=== PATIENT | male | born 1940 | race Caucasian/White ===

== ENCOUNTER 2019-09-20 00:23 | Day surgery (SDC) | payer MEDICARE, OTHER, SELFPAY ==
[2019-09-10 08:46] VITALS: BP 142/66; PULSE 84; RESP 18; TEMP 36.6; O2SAT 96; BMI 33.3
[2019-09-20] VITALS (15 sets, daily range): BP systolic 113–146; BP diastolic 48–77; PULSE 64–91; RESP 12–18; TEMP 36.4–37.2; O2SAT 93–100
--- NOTE | ~2019-09-20 | XR_ITS ---
EXAMINATION: XR knee LT 2V DATE: 09/20/2019 11:35 INDICATION: Postoperative evaluation following left knee arthroplasty. TECHNIQUE: Anteroposterior and lateral views of the left knee were obtained. COMPARISON: None. FINDINGS: Left total knee arthroplasty with patellar resurfacing appears well seated and in near anatomic align ment. No fractures identified. Expected postoperative subcutaneous and intra-articular gas. IMPRESSION: 1. Left total knee arthroplasty, negative for postoperative purposes. Reviewed, dictated and finalized at location A. HT CUTTER
--- NOTE | ~2019-09-20 | XR_ITS ---
EXAMINATION: XR surgery orthopedic DATE: 09/20/2019 09:24 INDICATION: Intraoperative evaluation during left total knee arthroplasty TECHNIQUE: Single frontal intraoperative image of the left knee was obtained. COMPARISON: 02/15/2019 FINDINGS: Interval osteotomies of the articular surfaces of the tibial plateau and femoral condyles. Lucent int ramedullary tract in the distal femur. Metallic device projecting over the patella suggesting patella r resurfacing. Expected gas at the operative bed. The knee is currently in varus position with the pa tella subluxed laterally. No fracture identified. IMPRESSION: 1. Fluoroscopy utilized during left total knee arthroplasty. Reviewed, dictated and finalized at location A. CCO SIZER
--- NOTE | 2019-09-20 06:54 | WPDANESEPPF ---
Anes - Initial Pre Proc Eval Procedure: Operation Date: 09/20/19 07:30 Proposed Procedures p Left Total Knee Arthroplasty - Jose Mathews MD Date/Time: 09/20/19 06:54 Surgeon: Jose Mathews MD Pre Op Diagnosis: OA Left Knee Patient Data Age: 79 Gender: M Height: 1.8 m Weight: 108.4 kg Last Vital Signs Temp 36.6 C 09/10/19 08:46 Pulse 84 09/10/19 08:46 Resp 18 09/10/19 08:46 BP 142/66 H 09/10/19 08:46 Pulse Ox 96 09/10/19 08:46 Allergies Allergy/AdvReac Type Severity Reaction Status Date / Time Penicillins Allergy Unknown Swelling Verified 09/10/19 08:46 Home Medications Medication Instructions Recorded Confirmed Type finasteride 5 mg tablet 5 mg PO DAILY 08/17/19 09/10/19 History Patient hx anesthesia problems: none Family hx anesthesia problems: none PMFSH Past Medical History Medical History (Updated 09/20/19 @ 06:55 by Azeem Mendiola DO) ABBY (obstructive sleep apnea) Other urinary problems Parkinson disease recent diagnosis, early stages, no meds Skin problem Chronic psoriasis Surgical History Surgical History History of appendectomy Social History Social History Gender identity (if verbalized by the patient): Male Anes - Eval Final PreProcedure Day of Procedure 09/20/19 06:54 Patient weight: obese Heart: regular rate and rhythm Lungs: clear to auscultation and normal air movement Airway: Mallampati scale class II Neurological: alert and oriented Last oral intake: >/= 8 hours ASA classification: III Emergent: no Anesthetic plan: proceed Anesthesia type and monitoring: regional spinal and standard monitoring Informed Consent: The patient's anesthetic plan and its attendant risks and benefits were discussed with the patient/family/POA. Questions were solicited and answers provided to the satisfaction of the patient/family/POA.
[2019-09-20] MEDS: LACTATED RINGERS 1,000 ML 30 ML IV CONT ×2 (07:00→11:17)
--- NOTE | 2019-09-20 07:27 | WPDHPUPDATE1 ---
History and Physical Update Update Date/Time: 09/20/19 07:27 History and Physical has been reviewed, including an updated exam of the patient. There are NO changes in the patient's condition. Risks, benefits, and alternatives have been discussed and questions answered. Patient agrees to proceed with procedure.
--- NOTE | 2019-09-20 07:32 | WPDANESPNB ---
Anes - Peripheral Nerve Block Date/Time: 09/20/19 07:32 I have discussed with the patient/family/POA the placement of a peripheral nerve block for post-operative pain management, including associated risks, benefits, complications, and side effects. Alternative methods of post-operative analgesia were detailed. Questions were solicited and answers provided to the satisfaction of the patient/family/POA. Time-Out: A pre-procedural Time-Out was completed immediately before starting the procedure and confirmed: Patient Identification, Site, Procedure, Patient Position and the Availability of Requisite Equipment. Clinical Indications: Acute post-operative pain management requested by the operative surgeon. Nerve Block Insertion Note Anes-nerve block: adductor canal left Patient position: supine Skin prep: chlorhexidine Needle: 22 gauge, stimulating, insulated echogenic needle. Needle length: 80 mm Technique: ultrasound Injectate: bupivacaine 0.5% with epi 5 mcg/ml (30cc) Observations: tolerated well Complications: none Procedure start time:: 727 Procedure end time:: 730
[2019-09-20] MEDS: TRANEXAMIC ACID 1,000 MG in SODIUM CHLORIDE 0.9% IV 50 ML 120 MG IVPB (07:40)
[2019-09-20] MEDS: ceFAZolin 2 GM/D5W 50 ML 2 GM/50 ML BAG IVPB ×3 (08:05→23:30)
[2019-09-20] MEDS: GENTAMICIN BONE CEMENT REFOBACIN 1 EACH TOPICAL (08:30)
[2019-09-20] MEDS: TRANEXAMIC ACID 1,000 MG/10 ML AMPUL 1000 MG TOPICAL (08:30)
[2019-09-20] MEDS: ceFAZolin SODIUM 1 GM VIAL IV PUSH (10:19)
--- NOTE | 2019-09-20 11:21 | P.OP_ITS ---
Procedure Note - Detailed Date of procedure: 09/20/19 Pre-op diagnosis: OA Left Knee Post-op diagnosis: same Procedure performed: Cemented left total knee replacement Description of procedure: Patient was identified proper site identified. In the preop holding area, anesthesia team performed a left lower extremity block. He was then taken to the operating room and transferred to the OR table. After spinal anesthetic was administered he was positioned supine taking care to pad his torso and extremities. A nonsterile tourniquet was placed high on the left thigh. Left lower extremities prepped and draped in usual sterile fashion. Ex tremities exsanguinated and the tourniquet was inflated to 300 mm years of mercury remaining up initially for 60 minutes. Anterior midline incision was made. Sharp dissection was carried down through the subcutaneous tissue to the extensor mechanism. A mid vastus approach was used. Infra and suprapatellar fat pads were excised. The patella was resected leaving 16 mm thickness and then prepared for medium round three peg component. With the knee flexed and using the intramedullary alignment guide the distal femur was cut in a proper orientation for the size 72.5 femoral component. The tibia was cut perpendicular long axis using extramedullary guide due to the amount of deformity and intraoperative AP x-ray was obtained showing the cut to be perpendicular. The tourniquet was released while the knee was balanced. This required resection of osteophyte the medial portion tibial plateau as well as release of the deep fibers of the MCL. Due to tightness in extension the distal femur was recut this combination of things balance the flexion and extension gaps. The tibia was sized to a 75. Trial reductions undertaken the weight- bearing line was noted to pass through the center of the joint. The knee was re-exsanguinated and with the knee flexed tourniquet reinflated to 300 mmHg remaining up for an additional 18 minutes. Trial components were removed. The bone surfaces were washed with pulsatile lavaged and dried the real size 75 tibia, size 72.5 femur and 34 patellar components were all cemented simultaneously. The knee was held in extension and the patella clamped until the cement had cured. Tourniquet was released and excess cement was removed the joint. The 14 insert gave motion from full extension to 120? of flexion the patella tracked in the femoral groove and a left up so after final lavage of the joint and a 3 minutes soak with a Betadine solution, the real 14 insert was placed secured with a locking bar. The periarticular tissues were infiltrated with a total of 60 cc of the arthroplasty solution 1 g tranexamic acid was left in the wound. Extensor mechanism was repaired with 1. Looped PDS suture and 2. Vicryl. The deeper layers of the subcu 2. Vicryl and then three 0 Monocryl to of strata fix you for the skin along with tissue adhesive. Sterile dressings applied. He tolerated the procedure well was transferred back to a cart and to recovery in stable condition. There were no known intraoperative complications. Anesthesia: regional and spinal Surgeon: Jose Mathews MD Geological Science Teacher: Fracisco Brock Estimated blood loss (mL): 400 Tourniquet time (min): 78 Drains: No Packing: No Pathology: none sent Complications: No immediate complications Condition: stable Disposition: PACU
--- NOTE | 2019-09-20 14:04 | PC.NURSE ---
This patient, Jimmy Lopez, was admitted to 3 [facility] Surg Room 310-01 on 09/20/2019 @ 1320. Patient/family oriented to hospital policies and general routines including ID bracelet, bed and alarms, visiting hours, pain management, procedures, bathroom and other care routines, personal items, smoking policy, room service/diet, and visiting hours. Valuables list has been completed. Information on how to activate the Rapid Response Team has been discussed. Patient/Family are encouraged to report perceived risks to care and to ask questions if they do not understand what they are told or what they should do.
[2019-09-20] MEDS: DOCUSATE SODIUM 100 MG CAPSULE PO (17:19)
[2019-09-20] MEDS: FAMOTIDINE 20 MG TABLET PO (19:57)
[2019-09-21 04:00] VITALS: BP 106/44; PULSE 95; RESP 16; TEMP 36.5; O2SAT 92
--- NOTE | 2019-09-21 06:26 | PM.PNORT ---
Progress Note: A&P Assessment and Plan (1) Status post total left knee replacement: Onset Date: ~09/20/19 Code(s): Z96.652 - Presence of left artificial knee joint Status: Acute (2) Osteoarthritis of knee: Qualifiers: Osteoarthritis type: primary Laterality: left Qualified Code(s): M17.12 - Unilateral primary osteoarthritis, left knee Code(s): M17.10 - Unilateral primary osteoarthritis, unspecified knee Status: Acute Assessment and Plan: 79-year-old male status post left total knee replacement. Doing well overnight. Tolerated yesterday's therapy fine today has more therapy today and will be discharged home. Instructions were reviewed with him in detail as well as recorded for him to take home at discharge. He has an appointment to see me in approximately two weeks. His outpatient therapy begins in one week. He will do exercises on his own until then. I asked him to call our have his for daughter call us with any questions prior to follow-up. Time Spent With Patient Time with patient: 15 - 25 minutes Subjective Subjective Date/Time Seen: 09/21/19 06:26 Post Op day: 1 Principal diagnosis: Status post left total knee replacement on 09/20/2019 Review of Systems Constitutional: Constitutional: Denies chills and Denies fever(s) Eyes: Eyes: Reports no additional eye complaints ENT: Reports system reviewed and no additional complaints, except as documented Cardiovascular: Cardiovascular: Denies chest pain and Denies dyspnea on exertion Respiratory: Respiratory: Reports no additional respiratory complaints and Denies dyspnea on exertion Gastrointestinal: Gastrointestinal: Denies abdominal pain and Denies bloating Exam Const: General: cooperative, no acute distress and alert Nutritional Appearance: other Orientation/consciousness: patient oriented x3 Limitations: no limitations HENMT: Head: normal to inspection Ears: hearing grossly abnormal bilaterally (Slightly hard of hearing this morning) Face and sinus: face symmetric Mouth: Yes moist mucous membranes Teeth and gingiva: fair dentition Eyes: Alignment and Position: alignment normal and position normal Sclera: sclerae normal Neck: Neck: normal visual inspection and nontender Chest: Chest palpation & inspection: normal inspection of the chest Resp: Effort & Inspection: normal respiratory effort and able to speak in complete sentences GI: Inspection: other (Belly nontender) Skin: General skin exam: normal color Rashes: no rashes Neuro: General: patient oriented x3 Cognition (Neuro): normal cognition Speech: normal speech Gait exam (Neuro): Other gait observations present Motor exam (neuro): 5/5 motor strength present throughout (Both lower extremities) Sensory Exam: normal sensation Deep tendon reflexes (DTR's): Right triceps reflex intensity grade: 2+, Left triceps reflex intensity grade: 2+, Rt Biceps (C5, C6): 2+, Left biceps reflex intensity grade: 2+, Right brachioradialis reflex intensity grade: 2+, Left brachioradialis reflex intensity grade: 2+, Right patellar reflex intensity grade: 2+, Left patellar reflex intensity grade: 2+, Right ankle reflex intensity grade: 2+ and Left ankle reflex intensity grade: 2+ Plantar Reflex Responses: downgoing: right and left Extrem: General: normal to inspection and other Other: Exam of the left lower extremity reveals some bruising about the knee. No drainage knee. Minimal swelling noted. Calves are negative. Grossly neurovascular status to the left lower extremities unremarkable. Psych: Appearance: grossly normal Mental Status: mental status grossly normal Knee X-Ray 09/20/19 Objective Data Vital Signs Vital Signs: Vital Signs - 24 hr 09/20/19 06:28 09/20/19 11:17 09/20/19 11:30 Temperature 97.8 F 99.0 F Pulse Rate 76 76 80 Respiratory Rate 18 15 12 Blood Pressure 146/61 H 135/75 Pulse Oximetry 97 96 96 09/20/19 11:45 09/02
[2019-09-21 06:32] VITALS: BP 133/59; PULSE 95; TEMP 36.8; O2SAT 95
--- NOTE | 2019-09-21 06:53 | PM.DS ---
DS: Diagnosis Admitting Diagnosis Admitting Diagnosis: Personal history of nicotine dependence Discharge Diagnosis (1) Status post total left knee replacement: Onset Date: ~09/20/19 Code(s): Z96.652 - Presence of left artificial knee joint Status: Acute (2) Osteoarthritis of knee: Qualifiers: Osteoarthritis type: primary Laterality: left Qualified Code(s): M17.12 - Unilateral primary osteoarthritis, left knee Code(s): M17.10 - Unilateral primary osteoarthritis, unspecified knee Status: Acute DS: Summary Time Spent with Patient Time attestation: Total time spent providing and/or coordinating discharge services: 20 minutes Discharge Plan Discharge Consulting providers: Ross Golden Patient Disposition: Home, Self-Care Discharge Instructions: Call [phone] and ask for Radha with any questions prior to follow-up. Please replace the dressing on 09/24/2019 with the one provided by the hospital. Okay to shower with dressing in place. 3 times daily for 20 minutes apiece, lay in bed with pillow underneath the left calf and ice bags on the knee. Be careful not to freeze the skin. For the 1st 2-3 days after your surgery, take the prescribed pain medication on a schedule. After switching to the scheduled arthritis formula Tylenol, you may take up to for of the pain pills per day in addition to the scheduled Tylenol. Heath switched to the scheduled Tylenol in three or four days, rather than five. Do your physical therapy exercises once or twice daily for the 1st week. Your formal therapy begins in one week. The day after the Xarelto is completed, begin taking enteric coated aspirin 81 mg daily and do this for a total of 28 more days. Follow-up/Referrals: Jose Mathews MD [Physician] - 2 Weeks Discharge Medications: New oxycodone-acetaminophen 5-325 mg Tablet 1 tablet PO Q4H PRN (Reason: pain) Qty: 40 RF: 0 Xarelto 10 mg Tablet 10 mg PO QAM Qty: 13 RF: 0 Continued finasteride 5 mg tablet 5 mg PO DAILY RF: 0 Attending physician on admission: Jose Mathesw Quality VTE Prophylaxis VTE prophylaxis: mechanical ordered and pharmacologic ordered
[2019-09-21] MEDS: FINASTERIDE 5 MG TABLET PO (08:07)
[2019-09-21] MEDS: RIVAROXABAN 10 MG TABLET PO (08:07)
[2019-09-21] MEDS: FAMOTIDINE 20 MG TABLET PO (08:07)
[2019-09-21] MEDS: DOCUSATE SODIUM 100 MG CAPSULE PO (08:07)
[2019-09-21] MEDS: ceFAZolin 2 GM/D5W 50 ML 2 GM/50 ML BAG IVPB (08:08)
[2019-09-21 11:37] VITALS: BP 125/43; PULSE 91; RESP 14; TEMP 36.6; O2SAT 93
--- NOTE | 2019-09-21 13:43 | PC.NURSE ---
On 09/21/19, the student, [ Ginger Davalos], provided care and completed [facility] documentation on this patient. I have reviewed the student's documentation and agree with the findings.
--- NOTE | 2019-09-21 14:34 | PC.NURSE ---
On 09/21/19, the student, [Ginger Davalos ], provided care and completed [facility] on [facility]. I have reviewed the student's documentation and agree with the findings.
--- NOTE | 2019-09-21 14:36 | PC.NURSE ---
On 09/21/19, the student, [ Harrison Tran], provided care and completed [facility] documentation on this patient. I have reviewed the student's documentation and agree with the findings.
--- NOTE | 2019-09-21 14:38 | PC.NURSE ---
Patient's casas catheter removed @ 0610. Patient has voided 50cc. Bladder scan results ranged from 26-42cc. Patient is in no discomfort at this time. Educated patient and that if patient does not void within 6 hours and is in discomfort, he might need to come to ER. stated that patient sees Dr. Ashford outpatient. They both stated that they understand. Will proceed with discharge.
--- NOTE | 2019-09-21 15:10 | PC.NURSE ---
On 09/21/19, the student, [Harrison Tran ], provided care and completed [facility] documentation on this patient. I have reviewed the student's documentation and agree with the findings.
--- NOTE | 2019-09-21 15:27 | PC.NURSE ---
On 09/21/19, the student, [Ginger Davalos ], provided care and completed [facility] documentation on this patient. I have reviewed the student's documentation and agree with the findings.
== END 2019-09-21 15:00 | disposition home or self-care (01) ==
LOC: ANHSURGERY 06:18 → ANH3MEDSUR 09-21 06:54
PROVIDERS: Visit Provider Orthopaedic Surgery
PROC: (CPT 27447; principal; 2019-09-20 07:30)
DX: M17.12 Unilateral primary osteoarthritis, left knee (principal); G89.18 Other acute postprocedural pain; G20 Parkinson's disease; L40.9 Psoriasis, unspecified; G47.33 Obstructive sleep apnea (adult) (pediatric); Z79.899 Other long term (current) drug therapy; Z87.891 Personal history of nicotine dependence; Z88.0 Allergy status to penicillin
CPT/HCPCS: 27447; 64447; 73560; 76000; 97110; 97116; 97161; 97165; 97530; A9270; C1713; C1776; J0131; J0171; J0690; J1885; J2250; J2270; J2370; J2405; J2704; J2795; J3010; J7120

== ENCOUNTER 2019-10-25 13:30 | Outpatient (RCR) | payer MEDICARE, OTHER, SELFPAY ==
--- NOTE | 2019-09-21 07:04 | WPDANESPN ---
Anes - Prog Note Post-Op Date/Time: 09/21/19 07:04 Cardiovascular status: normal Respiratory status: normal Airway patency: baseline Mental status: baseline Post-Op hydration status: normal Post-procedural complaints: none Patient Feedback: Patient satisfied with anesthetic care.
--- NOTE | 2019-09-27 14:08 | PTOPEVAL ---
PHYSICAL THERAPY EVALUATION AND PLAN OF CARE Thank you for referring this patient to [facility]. Jimmy will be seen in PT 2x/week for 4 weeks with re-evaluation to determine further needs. Please review, sign, date and return this plan of care ESTER. I agree with and certify that the following plan of care is medically necessary. Referring Physician Date Attending Provider: Jose Mathews MD Evaluation Outpatient Past Medical History Neurological History Hx Parkinson's Disease Yes: New dx - follow up in 6 months Hx Other Neurological Disorders Yes: TESTING FOR PARKINSONS WEEK OF 2019. Respiratory History Hx Sleep Apnea Yes: DOES NOT WEAR C-PAP Gastrointestinal History Hx Appendectomy Yes: 1951 Genitourinary History Hx Other Genitourinary Disorders Yes: SLOW STREAM,TAKES MED Musculoskeletal History Hx Arthritis Yes Hx Joint Replacement Yes: LT TKA 09/20/2019 Hx Other Musculoskeletal Disorders Yes: OA LT KNEE Hematological History Evaluation Information Problem Diagnosis left TKA Onset 09/20/2019 Subjective Information Jimmy is here today 1 week s Query Text:As Reported By Patient/ /p left TKA. He is not Family tolerating the pain medication well with hallucinations ( taking oxycodone) so he stopped taking the medication. He is taking arthritis Tylenol per physician recommendation. Physician has been notified of poor tolerance. Patient sleeps ok if he is able to lie still. Prior Level of Function Home Setting Home Type Single Level Environmental Barriers Railing, Bilateral,Stairs, Greater than 4 Living Situation With Spouse Self Report Pain Assessment Left Knee(s) Reported Pain Level 5 Pain Description Aching,Dull,Heavy Pain Frequency Acute Current Pain Intensity 5 Lowest Pain Intensity 3 Greatest Pain Intensity 9 Pain Aggravating Factors Exercise/Activity,Walking, Weight Bearing/Standing Pain Behaviors None Pain Relief Interventions Used By Ice Patient Interventions Used By Clinicians Exercise,Ice Pain Score Pain Score 5: Self Report Lower Extremity Range of Motion Knee Range of Motion Left Knee Flexion Range of Motion - Active 88 Knee Extension Range of Motion - Active 7 Query Text: Hip Strength
--- NOTE | 2019-10-06 12:24 | PCPTNOTE ---
Patient called & cancelled scheduled appointment this date due to weather
--- NOTE | 2019-10-25 14:00 | PTOPEVAL ---
PHYSICAL THERAPY DISCHARGE REPORT Thank you for referring this patient to [facility]. I recommend Jimmy discharge from PT at this time. Please review, sign, date and return this plan of care ESTER. I agree with and certify that the following plan of care is medically necessary. Referring Physician Date Attending Provider: Jose Mathews MD Discharge Diagnosis left TKA Onset 09/20/2019 Subjective Information Jimym reports no greater Query Text:As Reported By Patient/ than 09/10 pain in left knee. Family He reports that he is participating in all activities he wants to be participating in and feels he does them well. Self Report Pain Assessment Left Knee(s) Reported Pain Level 1 Pain Description Aching Pain Frequency Acute,Intermittent Interventions Used By Clinicians Exercise Pain Score Pain Score 1: Self Report Additional Pain Score Comments just a little pain over the top of the knee Knee Range of Motion Left Knee Flexion Range of Motion - Active 122deg Knee Extension Range of Motion - Active 4deg Hip Strength Left Hip Flexion Strength 4+ Good + Hip Extension Strength 4+ Good + Hip Abduction Strength 4+ Good + Knee Strength Left Knee Flexion Strength 5 Normal Knee Extension Strength 5 Normal Edema Assessment Left Leg Type Dependent Edema Degree 1+ (2 mm or less) Timed Up and Go Test (TUG) (Seconds) 12 Comments mild LOB while turning - self corrected Gait Assessment Ambulation Assistive Devices None Weight Bearing Status - Left Full Weight Bearing Status - Right Full Ambulation Distance in and out of clinic Gait Pattern Wide Based Gait 2 Minute Walk Total Distance Walked (feet) 300 Number of Breaks Required 0 2 Minute Walk Test Comments 2.5ft/second Clinical Summary Jimmy is a 79 yo male presenting to outpatient physical therapy s/p 5 week left TKA. Michael has recovered from surgery very well. He no longer uses an assistive device to ambulate and he has a normal gait pattern and speed. His strength has progress well and his knee ROM is WFL. Initially Jimmy
== END 2019-10-26 09:00 | disposition home or self-care (01) ==
LOC: ANHPT 13:30
PROVIDERS: Visit Provider Orthopaedic Surgery
DX: M17.12 Unilateral primary osteoarthritis, left knee (principal)
CPT/HCPCS: 29581; 97016; 97110; 97140; 97161

== ENCOUNTER 2020-04-10 09:50 | Inpatient (IN) | payer MEDICARE, OTHER, SELFPAY ==
[2020-04-10] VITALS (12 sets, daily range): BP systolic 100–131; BP diastolic 42–65; PULSE 63–103; RESP 16–31; TEMP 36.5–39; O2SAT 86–97; BMI 29.6
--- NOTE | ~2020-04-10 | XR_ITS ---
XR chest PICC line DATE: 04/16/2020 15:59 INDICATION: PICC line insertion TECHNIQUE: Portable AP chest on 04/16/2020 at 1556 hours COMPARISON: 04/16/2020 portable AP chest at 0524 hours FINDINGS: Right upper terminate PICC catheter tip overlies the proximal superior vena cava. There is no evidence of pneumothorax. No significant change of the previously reported diffuse lung disease noted at 0524 hours today; diff erential diagnosis includes pulmonary edema, atypical pneumonia, acute respiratory distress syndrome. 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 Diffuse osteopenia. IMPRESSION: Right upper extremity PIC catheter tip at proximal superior vena cava Reviewed, dictated and finalized at Location [facility]. Reviewed, dictated and finalized at location A. IMPRESSION: Right upper extremity PIC catheter tip at proximal superior vena ca va
--- NOTE | ~2020-04-10 | XR_ITS ---
EXAMINATION: XR chest 1V portable DATE: 04/24/2020 14:49 INDICATION: COVID-19 pneumonia. TECHNIQUE: A single frontal view of the chest was obtained. COMPARISON: Chest single view 04/23/2020 FINDINGS: There is an interstitial pattern throughout the lungs bilaterally. There are airspace opaci ties in the lower lung zones. No pleural effusion or pneumothorax. The heart size is normal. The endo tracheal tube tip is 6.0 cm above the franklin. A left upper extremity peripherally inserted central ve nous catheter (PICC) is seen with tip in the superior vena cava. The nasogastric tube tip is beyond t he inferior margin of the radiograph, but at least to the stomach. IMPRESSION: 1. Stable diffuse lung disease, consistent with pneumonia versus pulmonary edema versus acute respira tory distress syndrome (ARDS). Reviewed, dictated and finalized at location B. IMPRESSION: 1. Stable diffuse lung disease, consistent with pneumonia versus pulmonary rob a versus acute respiratory distress syndrome (ARDS).
--- NOTE | ~2020-04-10 | US_ITS ---
EXAMINATION: US venous doppler UE BI EXAM DATE: 04/19/2020 14:20 INDICATION: 04/19/2020 14:21 INDICATION: Shortness of breath. Arm swelling. TECHNIQUE: Multiple grayscale, color flow, Doppler sonographic images of the upper extremity veins bi laterally obtained by technologist. Compression was performed where able. There is no prior study f or comparison. FINDINGS: RIGHT upper extremity: Jugular vein: ------------> Normal. Subclavian vein: --------> Normal. Axillary vein:------------> Normal. Brachial vein:-----------> Normal. Basilic vein: ------------> Thrombosed. Cephalic vein: ----------> Thrombosed. Radial vein: ------------> Normal. Ulnar vein: > Normal. LEFT upper extremity: Jugular vein: ------------> Normal. Subclavian vein: --------> Normal. Axillary vein:------------> Normal. Brachial vein:-----------> Normal. Basilic vein: ------------> Normal. Cephalic vein: ----------> Normal. Radial vein: ------------> Normal. Ulnar vein: > Normal. IMPRESSION: Right basilar, cephalic superficial venous thrombosis. No DVT bilaterally. Reviewed, dictated and finalized at location B. IMPRESSION: Right basilar, cephalic superficial venous thrombosis. No DVT holly garnett.
--- NOTE | ~2020-04-10 | XR_ITS ---
EXAMINATION: XR chest 1V portable EXAM DATE: 04/26/2020 06:28 INDICATION: COVID 19. Respiratory failure TECHNIQUE: Portable AP frontal chest x-ray was obtained. Comparison is made to prior examination from 04/24/2020, 04/23. FINDINGS: Endotracheal tube tip is 5 centimeters above the franklin (ideal range is between 2 to 5 cm). There is a left-sided PICC line in position. Feeding tube overlying expected position. There is extensive ill-defined bilateral airspace disease appearance most consistent with ARDS/edema, but could be result of infection given history provided above. There are no sizable pleural effusio ns. There is no pneumothorax suspected. The cardiomediastinal silhouette is prominent but magnifi ed on this AP technique. The bones and soft tissues are unremarkable. Compared to last couple of d ays, the airspace disease appears to be slightly more confluent. IMPRESSION: 1. Line(s) and tube(s) in position. 2. Extensive ill-defined bilateral acute airspace disease, interval progression. Reviewed, dictated and finalized at location A. IMPRESSION: 1. Line(s) and tube(s) in position. 2. Extensive ill-defined bilateral acute airspace disease, interval progressio n.
--- NOTE | ~2020-04-10 | XR_ITS ---
EXAMINATION: XR chest 1V portable EXAM DATE: 04/25/2020 06:01 INDICATION: COVID 19. TECHNIQUE: Portable AP frontal chest x-ray was obtained. Comparison is made to prior examination from 04/24/2020. FINDINGS: Endotracheal tube tip is 3 centimeters above the franklin (ideal range is between 2 to 5 cm). There is a left-sided PICC line in position. There is a nasogastric tube seen with tip collimated o ff the study, but below the left hemidiaphragm. Again there is moderate amount of ill-defined bilateral airspace disease appearance most consistent w ith ARDS/edema, but could be result of infection given history provided above. There are no sizable pleural effusions. There is no pneumothorax suspected. The cardiomediastinal silhouette is promin ent but magnified on this AP technique. The bones and soft tissues are unremarkable. There is no s ignificant interval change compared to prior exam. IMPRESSION: 1. Line(s) and tube(s) in position. 2. Moderate amount of ill-defined bilateral acute airspace disease unchanged. Reviewed, dictated and finalized at location A.
--- NOTE | ~2020-04-10 | XR_ITS ---
EXAMINATION: XR abdomen NG/feed tube insert INDICATION: OG insertion TECHNIQUE: Portable AP KUB-NG at 1114 hours COMPARISON: 0544 hours. FINDINGS: The OG tube is in the stomach. Diffuse lung disease is unchanged. An endotracheal tube has been inserted. IMPRESSION: 1. OG tube in the stomach. Reviewed, dictated and finalized at location A. IMPRESSION: 1. OG tube in the stomach.
--- NOTE | ~2020-04-10 | US_ITS ---
EXAMINATION: US venous doppler LE EXAM DATE: 04/19/2020 14:21 INDICATION: Shortness of breath. TECHNIQUE: Multiple grayscale, color flow and Doppler images of the lower extremity deep venous syste ms bilaterally were obtained and reviewed. Comparison is made to prior examination from 05/27/2016. FINDINGS: Right side: The right common femoral, femoral and profunda veins demonstrate normal color flow, respi ratory variation, augmentation and compressibility. Compressibility, color flow confirmed within the right popliteal, posterior tibial, peroneal, and greater saphenous veins. Left side: The left common femoral, femoral and profunda veins demonstrate normal color flow, respira tory variation, augmentation and compressibility. Compressibility, color flow confirmed within the l eft popliteal, posterior tibial, peroneal, and greater saphenous veins. IMPRESSION: 1. No lower extremity deep venous thrombosis bilaterally. Reviewed, dictated and finalized at location B.
--- NOTE | ~2020-04-10 | XR_ITS ---
EXAMINATION: XR chest 1V portable EXAM DATE: 04/27/2020 05:44 INDICATION: COVID 19. Respiratory failure TECHNIQUE: Portable AP frontal chest x-ray was obtained. Comparison is made to prior examination from 04/25, 04/26. FINDINGS: Endotracheal tube tip is 5 centimeters above the franklin (ideal range is between 2 to 5 cm). There is a left-sided PICC line in position. Feeding tube has retracted slightly, side port appears to be at the gastroesophageal junction; this could be safely advanced 5 cm. There is extensive ill-defined bilateral airspace disease appearance most consistent with ARDS/edema, but could be result of infection given history provided above. There are no sizable pleural effusio ns. There is no pneumothorax suspected. The cardiomediastinal silhouette is prominent but magnifi ed on this AP technique. The bones and soft tissues are unremarkable. Compared to last couple of d ays, the airspace disease appears to be not significantly changed. IMPRESSION: 1. Nasogastric tube could be safely advanced 5 cm. 2. Extensive ill-defined bilateral acute airspace disease, unchanged. Reviewed, dictated and finalized at location A.
--- NOTE | ~2020-04-10 | XR_ITS ---
EXAMINATION: XR chest 1V portable DATE: 04/19/2020 06:14 INDICATION: Respiratory failure. COVID-19 pneumonia. TECHNIQUE: A single frontal view of the chest was obtained. COMPARISON: Chest single view 04/18/2020 FINDINGS: There is a diffuse interstitial pattern in the lungs. There are airspace opacities in right mid and lower lung zones and left lower lung zone. A calcified left lung nodule is consistent with o ld granulomatous disease. No pleural effusion or pneumothorax. The heart size is normal. IMPRESSION: 1. Stable diffuse lung disease, consistent with pneumonia versus pulmonary edema versus acute respira tory distress syndrome (ARDS). Reviewed, dictated and finalized at location A. IMPRESSION: 1. Stable diffuse lung disease, consistent with pneumonia versus pulmonary rob a versus acute respiratory distress syndrome (ARDS).
--- NOTE | ~2020-04-10 | XR_ITS ---
EXAMINATION: XR chest 1V portable INDICATION: COVID 19 pneumonia TECHNIQUE: Portable AP chest at 0544 hours COMPARISON: 04/22/2020 FINDINGS: A left upper extremity PICC ends with its tip in the mid superior vena cava. Diffuse inters titial and airspace opacities persist with slight worsening in the right midlung zone and lung bases. There is a small left pleural effusion. No pneumothorax is identified. The cardiomediastinal silhoue tte is normal. IMPRESSION: 1. . Diffuse lung disease with slight worsening in the lung bases and right midlung zone, consistent with pneumonia and/or pulmonary edema and/or acute respiratory distress syndrome (ARDS). Reviewed, dictated and finalized at location A. IMPRESSION: 1. . Diffuse lung disease with slight worsening in the lung bases and right mid lung zone, consistent with pneumonia and/or pulmonary edema and/or acute respir atory distress syndrome (ARDS).
--- NOTE | ~2020-04-10 | XR_ITS ---
EXAMINATION: XR chest 1V portable DATE: 04/18/2020 06:12 INDICATION: COVID-19 pneumonia. TECHNIQUE: A single frontal view of the chest was obtained. COMPARISON: Chest single view 04/17/2020 FINDINGS: There are airspace and interstitial opacities throughout the lungs bilaterally. A calcified left lung nodule is consistent with old granulomatous disease. No pleural effusion or pneumothorax. The heart size is normal. IMPRESSION: 1. Stable diffuse lung disease, consistent with pneumonia versus pulmonary edema versus acute respira tory distress syndrome (ARDS). Reviewed, dictated and finalized at location A. IMPRESSION: 1. Stable diffuse lung disease, consistent with pneumonia versus pulmonary rob a versus acute respiratory distress syndrome (ARDS).
--- NOTE | ~2020-04-10 | XR_ITS ---
EXAMINATION: XR chest 1V portable DATE: 04/20/2020 06:35 INDICATION: Respiratory failure. COVID-19 pneumonia. TECHNIQUE: A single frontal view of the chest was obtained. COMPARISON: Chest single view 04/19/2020, CT abdomen and pelvis 3 7 03/17 FINDINGS: There are interstitial and airspace opacities throughout the lungs bilaterally. No pleural effusion or pneumothorax. The heart size is normal. A left upper extremity peripherally inserted cent ral venous catheter (PICC) is seen with tip in the superior vena cava. IMPRESSION: 1. Stable diffuse lung disease, consistent with pneumonia versus pulmonary edema versus acute respira tory distress syndrome (ARDS). Reviewed, dictated and finalized at location A. IMPRESSION: 1. Stable diffuse lung disease, consistent with pneumonia versus pulmonary rob a versus acute respiratory distress syndrome (ARDS).
--- NOTE | ~2020-04-10 | XR_ITS ---
EXAMINATION: XR chest 1V portable INDICATION: Respiratory failure, COVID 19 pneumonia TECHNIQUE: Portable AP chest at 43 hours COMPARISON: 04/20/2020 FINDINGS: A left upper extremity PICC ends with its tip in the midsuperior vena cava. Diffuse interst itial and airspace opacities persist without significant change. There is a small left pleural effusi on. No pneumothorax is identified. The cardiomediastinal silhouette is normal. IMPRESSION: 1. Diffuse lung disease without significant change, consistent with pneumonia and/or pulmonary edema and/or acute respiratory distress syndrome (ARDS). Reviewed, dictated and finalized at location A. IMPRESSION: 1. Diffuse lung disease without significant change, consistent with pneumonia a nd/or pulmonary edema and/or acute respiratory distress syndrome (ARDS).
--- NOTE | ~2020-04-10 | XR_ITS ---
XR chest 1V portable DATE: 04/10/2020 10:51 INDICATION: Cough, fever, fatigue. Covid exposure. TECHNIQUE: Portable AP chest on 04/10/2020 at 1044 hours COMPARISON: None FINDINGS: There are mild bibasilar infiltrates and/or atelectasis. No pleural effusion or pulmonary v ascular congestion or pneumothorax. Normal heart size. No hilar or mediastinal enlargement. Degenerative spurring of the thoracic spine. Osteopenia. IMPRESSION: Mild bibasilar infiltrate and/or atelectasis Reviewed, dictated and finalized at location A.
--- NOTE | ~2020-04-10 | XR_ITS ---
EXAMINATION: XR chest PICC line INDICATION: PICC insertion TECHNIQUE: Portable AP chest at 1243 hours COMPARISON: 0529 hours FINDINGS: A left upper extremity PICC has been inserted which ends with its tip in the distal superio r vena cava. Diffuse interstitial and airspace opacities persist without significant change. There is no pleural effusion or pneumothorax. The cardiomediastinal silhouette is normal. IMPRESSION: 1. Left upper extremity PICC insertion ending in the distal superior vena cava. 2. Stable diffuse lung disease, consistent with pneumonia versus pulmonary edema versus acute respira tory distress syndrome (ARDS). Reviewed, dictated and finalized at location A. IMPRESSION: 1. Left upper extremity PICC insertion ending in the distal superior vena cava. 2. Stable diffuse lung disease, consistent with pneumonia versus pulmonary rob a versus acute respiratory distress syndrome (ARDS).
--- NOTE | ~2020-04-10 | XR_ITS ---
EXAMINATION: XR chest ET placement INDICATION: Endotracheal tube insertion, pneumonia and shortness of breath TECHNIQUE: Portable AP chest at 1115 hours COMPARISON: 0544 hours. FINDINGS: An endotracheal tube has been inserted which ends approximately 2.5 cm above the franklin. Th e nasogastric tube is followed as far as the stomach. Its tip is beyond the inferior margin of the ra diograph. A left upper extremity PICC ends in the midsuperior vena cava. Diffuse interstitial and air space opacities persist without significant change. There is a small left pleural effusion. The cardi omediastinal silhouette is normal. IMPRESSION: 1. Endotracheal tube approximately 2.5 cm above the franklin and nasogastric tube followed as far as th e stomach, otherwise no significant change. Reviewed, dictated and finalized at location A. IMPRESSION: 1. Endotracheal tube approximately 2.5 cm above the franklin and nasogastric tube followed as far as the stomach, otherwise no significant change.
--- NOTE | ~2020-04-10 | US_ITS ---
EXAMINATION: US venous doppler LE EXAM DATE: 04/25/2020 10:24 INDICATION: History failure. TECHNIQUE: Multiple grayscale, color flow and Doppler images of the lower extremity deep venous syste ms bilaterally were obtained and reviewed. Comparison is made to prior examination from 04/19/2020. FINDINGS: RIGHT SIDE Common femoral: -------- Normal. Profunda femoral: ------- Normal. Femoral: Normal. Popliteal: Normal. Posterior tibial: --------- Normal. Peroneal: Normal. Gastrocnemius: Not visualized. Soleus: Not visualized. Greater saphenous: ----- Normal. Lesser saphenous: ------ Not visualized. LEFT SIDE Common femoral: --------Nonocclusive thrombus. Profunda femoral: ------- Normal. Femoral: Normal. Popliteal: Normal. Posterior tibial: --------- Normal. Peroneal: Normal. Gastrocnemius: Not visualized. Soleus: Not visualized. Greater saphenous: ----- Normal. Lesser saphenous: ------ Not visualized. IMPRESSION: 1. Positive for nonocclusive left common femoral DVT. 2. No right DVT. I discussed DVT with ICU nurse Isela at 04/25/2020 10:30 CDT. Reviewed, dictated and finalized at location A.
--- NOTE | ~2020-04-10 | XR_ITS ---
EXAMINATION: XR chest 1V portable DATE: 04/12/2020 08:34 INDICATION: COVID-19 pneumonia. TECHNIQUE: A single frontal view of the chest was obtained. COMPARISON: Chest single view 04/10/2020 FINDINGS: There are interstitial opacities and hazy airspace opacities involving all lung zones bilat erally. No pleural effusion or pneumothorax. The heart size is normal. IMPRESSION: 1. Worsened diffuse lung disease, consistent with pneumonia versus pulmonary edema. Reviewed, dictated and finalized at location B. IMPRESSION: 1. Worsened diffuse lung disease, consistent with pneumonia versus pulmonary ed josse.
--- NOTE | ~2020-04-10 | XR_ITS ---
EXAMINATION: XR chest 1V portable DATE: 04/16/2020 05:42 INDICATION: Respiratory failure. COVID-19 pneumonia. TECHNIQUE: A single frontal view of the chest was obtained. COMPARISON: Chest single view 04/12/2020, CT abdomen and pelvis 11/05/2016 FINDINGS: There are interstitial opacities and hazy airspace opacities throughout the lungs. No pleur al effusion or pneumothorax. The heart size is normal. IMPRESSION: 1. Stable diffuse lung disease, consistent with atypical pneumonia versus pulmonary edema versus acut e respiratory distress syndrome (ARDS). Reviewed, dictated and finalized at location A. IMPRESSION: 1. Stable diffuse lung disease, consistent with atypical pneumonia versus pulmo nary edema versus acute respiratory distress syndrome (ARDS).
--- NOTE | ~2020-04-10 | XR_ITS ---
EXAMINATION: XR chest 1V portable DATE: 04/17/2020 06:12 INDICATION: Respiratory failure. COVID-19 pneumonia. TECHNIQUE: A single frontal view of the chest was obtained. COMPARISON: Chest single view 04/16/2020 FINDINGS: The patient is rotated to his right. There are interstitial and airspace opacities througho ut the lungs bilaterally. No pleural effusion or pneumothorax. The heart size is normal. A right uppe r extremity peripherally inserted central venous catheter (PICC) is seen with tip in the superior chela a cava. IMPRESSION: 1. Stable diffuse lung disease, consistent with pneumonia versus pulmonary edema versus acute respira tory distress syndrome (ARDS). Reviewed, dictated and finalized at location A. IMPRESSION: 1. Stable diffuse lung disease, consistent with pneumonia versus pulmonary rob a versus acute respiratory distress syndrome (ARDS).
--- NOTE | 2020-04-10 09:53 | ED.FEVER ---
HPI - Fever General Chief Complaint: Fever Stated Complaint: FEVER, COUGH Time Seen by Provider: 04/10/20 09:53 Source: patient Mode of arrival: ambulatory Limitations: no limitations History of Present Illness HPI Narrative: Patient is an 80-year-old male who presents for evaluation of cough, fever in the setting of a recent positive COVID contact, his daughter. Patient with reported fever 101 Fahrenheit at home. He reports a cough with mucus production. Patient states he has felt increasingly weak. Patient denies any chest pain. He states that he fell down yesterday trying to get into bed, denies any head trauma. Patient is not on any anticoagulation. He takes 1 finasteride daily and that his his only medication. Patient states myalgias, mild headache. No nausea or vomiting. He denies diarrhea. Patient's daughter works at a surgical center had a positive COVID test 2 weeks ago, patient became symptomatic with rhinorrhea, congestion 6 days ago. Related Data Home Medications Medication Instructions Recorded Confirmed finasteride 5 mg tablet 5 mg PO DAILY 08/17/19 12/15/19 Allergies Allergy/AdvReac Type Severity Reaction Status Date / Time Penicillins Allergy Unknown Swelling Verified 04/10/20 10:14 Review of Systems Review of Systems: Narrative: CONSTITUTIONAL: Reports fever and chills EYES: Denies visual changes, redness, or discharge. ENT: Reports rhinorrhea and congestion CARDIOVASCULAR: Denies chest pain, palpitations, or edema. RESPIRATORY: Reports cough and shortness of breath GASTROINTESTINAL: Denies abdominal pain, nausea, vomiting, or diarrhea. GENITOURINARY: Denies dysuria or hematuria. SKIN: Denies rash or itching. MUSCULOSKELETAL: Denies back pain, joint pain, reports myalgias NEUROLOGIC: Denies headache, numbness, reports feeling weak, denies focal weakness PMFSH Past Medical History Medical History ABBY (obstructive sleep apnea) Other urinary problems Parkinson disease recent diagnosis, early stages, no meds Skin problem Chronic psoriasis Surgical History Surgical History History of appendectomy Status post total left knee replacement (~09/20/19) September 2019 Social History Social History Smoking status: Former smoker Additional smoking assessment comments: Quit 1991 Alcohol intake: never Substance use: never Substance use type: does not use Gender identity (if verbalized by the patient): Male Spiritual care concerns: No Agree to blood products: Yes Exam Narrative: Exam Narrative: GENERAL: Awake, alert, conversant, fatigued appearing HEAD: Normocephalic, atraumatic. EYES: PERRLA and EOMI. ENT: Nares clear, no rhinorrhea or epistaxis. Mucous membranes dry NECK: Supple. CHEST: Tachypnea present, no audible wheezing, no respiratory distress, mild hypoxemia, oxygen saturations 90% with conversation HEART: Tachycardic rate, sinus rhythm ABDOMEN:Non distended, non tender EXTREMITIES: Normal range of motion. No edema. SKIN: Warm, dry, no rash. NEURO:No focal deficits. Alert and oriented x3 Course Vital Signs Vital signs: Vital Signs Temperature 38.8 C H 04/10/20 10:17 Pulse Rate 100 04/10/20 10:17 Respiratory Rate 17 04/10/20 10:17 Blood Pressure 131/56 L 04/10/20 10:17 Pulse Oximetry 94 04/10/20 10:17 Temperature 37.8 C H 04/10/20 11:31 Pulse Rate 97 04/10/20 11:16 Respiratory Rate 25 H 04/10/20 11:16 Blood Pressure 110/42 L 04/10/20 11:16 Pulse Oximetry 92 04/10/20 11:16 MDM - Fever MDM Narrative Medical decision making narrative: Patient presented for evaluation of fever, cough and shortness of breath in the setting of positive COVID contacts. Patient presents febrile, tachycardic, no hypotension, oxygen saturation 92 to 94% on room air but drops to 90% with con
--- NOTE | 2020-04-10 10:00 | ECG_ITS ---
Measurements Intervals [place] Rate: 106 P: 36 CO: 175 QRS: 67 QRSD: 93 T: 43 QT: 302 QTc: 401 Interpretive Statements SINUS TACHYCARDIA BASELINE ARTIFACT- V1 ABNORMAL ECG Electronically Signed On 04-10-2020 10:20:47 CDT by Qasim Davis D.O.
--- NOTE | 2020-04-10 10:45 | PC.NURSE ---
Pt attempting to provide urine sample at this time
[2020-04-10 10:52] LABS: Basophils Absolute Auto 0.1 K/mm3 (0.0-0.1); Basophils Percent Auto 0.5 % (0.2-1.2); Eosinophils Percent Auto 0.1 % (0-4.4); Hematocrit 34.3 % (42.0-52.0); Hemoglobin 11.8 g/dL (14.0-18.0); Immature Granulocyte Absolute 0.06 K/mm3 (0.00-0.031); Immature Granulocyte Percent A 0.4 % (0-0.5); Lymphocytes Absolute Auto 0.55 K/mm3 (0.9-3.2); Lymphocytes Percent Auto 3.6 % (18.3-44.2); Mean Corpuscular HGB Conc 34.4 g/dl (32-36); Mean Corpuscular Hemoglobin 31.1 pg (26-34); Mean Corpuscular Volume 90.5 fl (80-100); Mean Platelet Volume 10.1 fl (7.4-10.4); Monocytes Absolute Auto 1.5 K/mm3 (0.1-0.6); Monocytes Percent Auto 9.9 % (2.6-8.5); Neutrophils Absolute Auto 13.2 K/mm3 (1.3-6.7); Neutrophils Percent Auto 85.5 % (45.5-73.1); Platelet Count Result 183 k/mm3 (150-375); Red Blood Count 3.79 M/mm3 (4.6-6.20); Red Cell Distribution Width 14.1 % (11.5-14.5); White Blood Count 15.5 K/mm3 (4.5-10.0)
[2020-04-10 11:03] LABS: INR 1.2; Prothrombin Time 15.1 Seconds (11.1-14.7)
[2020-04-10 11:04] LABS: Partial Thromboplastin Time 27.9 SECONDS (22.3-36.8)
[2020-04-10 11:09] LABS: Lactic Acid Reflex 1.6 mmol/L (0.7-2.1)
--- NOTE | 2020-04-10 11:15 | PC.NURSE ---
Pt still unable to provided urine sample, refuses straight cath
[2020-04-10 11:16] LABS: Alanine Aminotransferase 13 U/L (4-50); Alkaline Phosphatase 56 U/L (38-126); Anion Gap 10 mmol/L (8-16); Aspartate Amino Transferase 22 U/L (17-59); Bilirubin,Total 0.8 mg/dL (0.2-1.3); Blood Urea Nitrogen 43 mg/dL (9-20); Calcium 8.9 mg/dL (8.4-10.2); Carbon Dioxide 23 mmol/L (22-30); Chloride 101 mmol/L (98-107); Creatine Kinase 98 U/L (55-170); Estimated CRCL calculation 29 ml/min; Estimated Glomerular Filt Rate 36; Glucose 107 mg/dL (75-110); Lactate Dehydrogenase 413 U/L (313-618); Sodium 134 mmol/L (137-145)
[2020-04-10 11:22] LABS: CRP 25.2 mg/dL (<1.0)
--- NOTE | 2020-04-10 13:30 | ADMGEN ---
This patient, Jimmy Lopez, was admitted to 3 [facility] Surg Room 331-01. Patient/family oriented to hospital policies and general routines including ID bracelet, bed and alarms, visiting hours, pain management, procedures, bathroom and other care routines, personal items, smoking policy, room service/diet, and visiting hours. Valuables list has been completed. Information on how to activate the Rapid Response Team has been discussed. Patient/Family are encouraged to report perceived risks to care and to ask questions if they do not understand what they are told or what they should do.
--- NOTE | 2020-04-10 15:15 | PM.IMHP ---
H&P: HPI History of Present Illness Date/Time: 04/10/20 15:15 <Maru Sandoval PA-C - Last Filed: 04/10/20 21:55> Chief complaint: Fever and cough. <Maru Sandoval PA-C - Last Filed: 04/10/20 21:55> Narrative: Jimmy Lopez is an 80-year-old male with Parkinson's, obstructive sleep apnea, and benign prostatic hyperplasia who presented to the emergency department earlier today from home for evaluation of fever and cough. Both he and his presented today with similar symptoms, concerned that they may have COVID as her daughter had recently tested positive approximately 2 weeks ago. He has not been feeling good for nearly 1 weeks time with symptoms to include sinus congestion, rhinorrhea, headache, myalgias, fever, and dry cough. He has been very weak as well and fact yesterday he fell to the ground trying to get into bed (there was no head trauma or loss of consciousness and he denies injuries). He chronically has diminished smell but his taste has been slightly decreased as well this week and his appetite just has not been great. He believes that he is probably dehydrated as his urine output has been decreased as well and his urine appears darker than usual. At the time my evaluation he feels a bit better since his fever broke, and is noted that his temperature was as high as 102.2? today. He denies neck ache, sore throat, chest pain, pleuritic pain, vomiting, diarrhea, and dysuria. <Maru Sandoval PA-C - Last Filed: 04/10/20 21:55> Review of Systems Review of Systems: Narrative: Twelve systems were reviewed with pertinent positives and negatives as per HPI. Except as documented, all other systems were reviewed and are negative. <Maru Sandoval PA-C - Last Filed: 04/10/20 21:55> [facility] Past Medical History Medical History: Medical History (Updated 04/14/20 @ 11:33 by Alfredo Miramontes MD) Benign prostate hyperplasia Obstructive sleep apnea on CPAP Parkinson disease Recently diagnosed, early stage, not on medication. Psoriasis Suspected COVID-19 virus infection <TEENA Doyle Last Filed: 04/10/20 21:55> Surgical History Surgical History: Surgical History History of appendectomy Status post total left knee replacement (~09/20/19) <Maru Sandoval PA-C - Last Filed: 04/10/20 21:55> Family History Family History: Family History Other Family history of cardiovascular disease <Maru Sandoval PA-C - Last Filed: 04/10/20 21:55> Social History Social History: Social History Social History: Surrogate decision maker: Halima Lopez, . Code status: Full code. Smoking packs per day: 1 Smoking cigarettes per day: 20.0 Years smoked: 40 Smoking pack-years: 40.00 Smoking status: Former smoker Additional smoking assessment comments: Quit in 1991. Alcohol intake: current Drinks per week: 2 Substance use: never Substance use type: does not use Additional living arrangements comments: Resides with his in [place]. Additional occupation/education comments: Retired, worked in [employer]. Gender identity (if verbalized by the patient): Male Spiritual care concerns: No Agree to blood products: Yes <Maru Sandoval PA-C - Last Filed: 04/10/20 21:55> Meds Home Medications and Allergies Home medications: Home Medications Medication Instructions Recorded Confirmed Type finasteride 5 mg tablet 5 mg PO DAILY 08/17/19 04/10/20 History <Maru Sandoval PA-C - Last Filed: 04/10/20 21:55> Allergies/Adverse reactions: Allergies Allergy/AdvReac Type Severity Reaction Status Date / Time Penicillins Allergy Unknown Swelling Verified 04/10/20 10:14 egg AdvReac Vomiting Verified 04/10/20 13:40 <Mely Doyle
[2020-04-10 18:20] LABS: SARS-CoV-2 RNA PCR Positive
[2020-04-10 18:32] LABS: Add Urine Microscopic? YES; Appearance Urine Clear (Clear); Bilirubin Urine Negative (Negative); Blood Urine Negative (Negative); Color Urine Yellow (Yellow); Glucose Urine UA Negative (Negative); Ketones Urine Negative (Negative); Leukocyte Esterase Ur Negative LEU/UL (Negative); Mucus Urine Rare /lpf; Nitrate Urine Negative (Negative); Protein Urine 1+ mg/dL (Negative); Specific Grav Ur 1.027 (1.001-1.035); Squamous Epithelial Cell Urine Occasional /hpf (Few); Urobilinogen Urine Negative mg/dL (<2.0)
[2020-04-10] MEDS: ACETAMINOPHEN 325 MG TABLET 650 MG PO (20:04)
[2020-04-10] MEDS: SODIUM CHLORIDE 0.9% IV 1,000 ML 100 ML IV CONT (22:31)
[2020-04-11] VITALS (8 sets, daily range): BP systolic 121–154; BP diastolic 54–82; PULSE 77–109; RESP 18–30; TEMP 36.4–37.7; O2SAT 91–96
[2020-04-11 06:33] LABS: Basophils Percent Auto 0.1 % (0.2-1.2); Hematocrit 35.1 % (42.0-52.0); Immature Granulocyte Absolute 0.09 K/mm3 (0.00-0.031); Immature Granulocyte Percent A 0.5 % (0-0.5); Lymphocytes Absolute Auto 0.64 K/mm3 (0.9-3.2); Lymphocytes Percent Auto 3.9 % (18.3-44.2); Mean Corpuscular HGB Conc 34.2 g/dl (32-36); Mean Corpuscular Hemoglobin 30.6 pg (26-34); Mean Corpuscular Volume 89.5 fl (80-100); Mean Platelet Volume 10.1 fl (7.4-10.4); Monocytes Absolute Auto 0.8 K/mm3 (0.1-0.6); Monocytes Percent Auto 4.5 % (2.6-8.5); Neutrophils Absolute Auto 15.1 K/mm3 (1.3-6.7); Platelet Count Result 205 k/mm3 (150-375); Red Blood Count 3.92 M/mm3 (4.6-6.20); White Blood Count 16.6 K/mm3 (4.5-10.0)
[2020-04-11 07:20] LABS: Alanine Aminotransferase 14 U/L (4-50); Albumin Level 3.7 g/dL (3.5-5.1); Alkaline Phosphatase 54 U/L (38-126); Anion Gap 9 mmol/L (8-16); Aspartate Amino Transferase 22 U/L (17-59); Bilirubin,Total 0.4 mg/dL (0.2-1.3); Blood Urea Nitrogen 52 mg/dL (9-20); CRP 23.7 mg/dL (<1.0); Calcium 8.8 mg/dL (8.4-10.2); Carbon Dioxide 22 mmol/L (22-30); Chloride 104 mmol/L (98-107); Estimated CRCL calculation 39 ml/min; Estimated Glomerular Filt Rate 49; Glucose 140 mg/dL (75-110); Lactate Dehydrogenase 406 U/L (313-618); Magnesium 2.3 mg/dL (1.6-2.3); Potassium 4.2 mmol/L (3.4-5.0); Sodium 135 mmol/L (137-145)
[2020-04-11] MEDS: ENOXAPARIN 30 MG/0.3 ML SYRINGE SUB-Q (09:05)
[2020-04-11] MEDS: FINASTERIDE 5 MG TABLET PO (09:06)
--- NOTE | 2020-04-11 15:35 | PM.IMPN ---
Progress Note: A&P Assessment and Plan (1) Sepsis: Code(s): A41.9 - Sepsis, unspecified organism Status: Acute Assessment and Plan: ----- on admission the patient had fever, tachycardia and leukocytosis. Secondary to COVID-19 pneumonia. No signs of UTI or other signs of infection on his body. Leukocytosis is not usually consistent with COVID-19 and another source of infection may be underlying. Does not seem to have any meningeal signs. At this juncture, will continue ceftriaxone and azithromycin and await blood cultures. (2) Suspected COVID-19 virus infection: Code(s): Z20.828 - Contact with and (suspected) exposure to other viral communicable diseases Status: Acute Assessment and Plan: ----- COVID-19 positive. Will monitor routine labs and chest x-ray. Patient is 94% on 2 L. if his oxygen demand increases, consider remdesivir. I do worry dexamethasone will make his confusion worse, will hold this at this time and see how he does. Will check ABG. he is pretty wheezy so I will schedule his albuterol instead of making it p.r.n.. (3) Bilateral pulmonary infiltrates on CXR: Code(s): R91.8 - Other nonspecific abnormal finding of lung field Status: Acute Assessment and Plan: -----COVID + (4) Acute kidney failure: Code(s): N17.9 - Acute kidney failure, unspecified Status: Acute Assessment and Plan: -----Cr improving 1.4. with his confusion, will give small amount of fluids as uremia may be the cause of his AMS. Will be care not to give too many fluids in the setting of COVID. (5) Obstructive sleep apnea on CPAP: Code(s): G47.33 - Obstructive sleep apnea (adult) (pediatric); Z99.89 - Dependence on other enabling machines and devices Status: Acute Assessment and Plan: -----Patient unable to use CPAP during this time due to not having negative pressure. If his CO2 is high on ABG, may need to consider moving him into a negative pressure room. (6) Benign prostate hyperplasia: Code(s): N40.0 - Benign prostatic hyperplasia without lower urinary tract symptoms Status: Acute Assessment and Plan: -----Continue finasteride. No evidence to suggest urinary retention. (7) Acute metabolic encephalopathy: Code(s): G93.41 - Metabolic encephalopathy Status: Acute Assessment and Plan: ----- unclear etiology at this time. the patient does have a history of hallucinating at home but this seems to be more extensive than it usually is. There is no neurological deficits on exam and I do not suspect stroke at this time. I will do a few labs to evaluate any etiologies such as increased ammonia, thyroid, carbon dioxide retention, etc.. It is possible that the Decadron is making him confused thus I have put on hold. he could have underlying dementia with his Parkinson's. Blood cultures are pending. Will continue to monitor. Time Spent With Patient Time with patient: 25 - 35 minutes Subjective Date/time seen: 04/11/20 15:35 Interval history: Pt is a 80-year-old male here for COVID-19 pneumonia. Patient was seen today and is technically alert and oriented x4 but often says things that are aligned with our conversation and is loosening. He says he is feeling a little short of breath but it has improved since admission. He is still coughing but not coughing anything up. He denies chest pain, nausea, vomiting, fevers, chills, abdominal pain, leg swelling or headache. He does not want to eat as he says he has no appetite and reports no pain with eating. he keeps saying that he has been watching people in the room whole day and that they are doing flips bicycles. I talked to him about this being a true, he seems to understand that it is not true but acts confused. With that being said, he answers all questions appropriately and is oriented to person, place, situation and date. Nursing staff spo
[2020-04-11] MEDS: ALBUTEROL SULFATE (*SP) AEROSOL 1 PUFF 2 PUFF INHALATION (16:08)
[2020-04-11 16:27] LABS: Alveolar/Arterial O2 Gradient 108.6 mmHg; Base Excess ABG -1.3 mEq/l (+/-2.0); Carboxyhemoglobin 0.3 % THb (0-2.0); Device NASAL CANNULA; Fractional Inspired Oxygen 28 %; HCO3 ABG 21.4 mEq/l (22.0-26.0); Methemoglobin ABG 0.3 %THb (0-1.5); Modified Allen's Test Pass; Oxygen Content ABG 15.5 %vol (16.0-22.0); Oxygen Saturation ABG 91.2 % (95.0-100.0); Oxyhemoglobin 89.5 % THb (90.0-100.0); PO2 ABG 55.6 mmHg (80.0-100.0); PO2 FiO2 Ratio Arterial Blood 1.99 %; Reduced Hemoglobin 9.9 %THb (0-5.0); Site Drawn LEFT RADIAL; Total Hemoglobin 12.3 g/dL (12.0-18.0); pH ABG 7.471 (7.350-7.450)
[2020-04-11 17:34] LABS: Acetaminophen < 10 ug/mL (10-30); Ammonia < 9 umol/L (9-30)
[2020-04-11 17:36] LABS: Ethanol < 10 mg/dL (<10); Salicylate < 1.0 mg/dL (2-20)
--- NOTE | 2020-04-11 17:48 | PC.NURSE ---
ANGEL DELCID CALLED AND INSTRUCTED JIMI Garrison TO TELL ME TO INCRESASE THE 02 2 MORE L UP FROM THE 2 HE HAD BEEN ON.
[2020-04-11] MEDS: LACTATED RINGERS 500 ML 100 ML IV CONT (19:41)
[2020-04-11] MEDS: MELATONIN 5 MG TABLET PO (21:04)
[2020-04-11] MEDS: ALBUTEROL SULFATE (*SP) INHALER 2 PUFF INHALATION (21:12)
[2020-04-12] VITALS (28 sets, daily range): BP systolic 91–163; BP diastolic 46–94; PULSE 75–123; RESP 22–37; TEMP 36.2–38.4; O2SAT 88–96
[2020-04-12] MEDS: ACETAMINOPHEN 325 MG TABLET 650 MG PO (01:05)
[2020-04-12 06:20] LABS: Basophils Percent Auto 0.1 % (0.2-1.2); Hematocrit 32.6 % (42.0-52.0); Hemoglobin 11.1 g/dL (14.0-18.0); Immature Granulocyte Absolute 0.21 K/mm3 (0.00-0.031); Lymphocytes Absolute Auto 0.49 K/mm3 (0.9-3.2); Lymphocytes Percent Auto 2.4 % (18.3-44.2); Mean Corpuscular Volume 88.1 fl (80-100); Monocytes Absolute Auto 1.4 K/mm3 (0.1-0.6); Neutrophils Absolute Auto 18.5 K/mm3 (1.3-6.7); Neutrophils Percent Auto 89.5 % (45.5-73.1); Platelet Count Result 219 k/mm3 (150-375); Red Cell Distribution Width 14.1 % (11.5-14.5); White Blood Count 20.6 K/mm3 (4.5-10.0)
[2020-04-12 06:39] LABS: Alanine Aminotransferase 13 U/L (4-50); Albumin Level 3.2 g/dL (3.5-5.1); Alkaline Phosphatase 50 U/L (38-126); Anion Gap 8 mmol/L (8-16); Aspartate Amino Transferase 25 U/L (17-59); Bilirubin,Total 0.3 mg/dL (0.2-1.3); Blood Urea Nitrogen 46 mg/dL (9-20); Calcium 8.5 mg/dL (8.4-10.2); Carbon Dioxide 23 mmol/L (22-30); Chloride 106 mmol/L (98-107); Estimated CRCL calculation 42 ml/min; Estimated Glomerular Filt Rate 53; Glucose 127 mg/dL (75-110); Lactate Dehydrogenase 531 U/L (313-618); Magnesium 2.1 mg/dL (1.6-2.3); Phosphorus 3.5 mg/dL (2.5-4.5); Potassium 4.2 mmol/L (3.4-5.0); Sodium 137 mmol/L (137-145)
[2020-04-12] MEDS: ENOXAPARIN 30 MG/0.3 ML SYRINGE SUB-Q (09:11)
[2020-04-12] MEDS: FINASTERIDE 5 MG TABLET PO (09:11)
[2020-04-12] MEDS: REMDESIVIR 200 MG/NS 250 ML 200 MG/250 ML BAG 250 MG IVPB (09:12)
[2020-04-12] MEDS: ALBUTEROL SULFATE (*SP) INHALER 2 PUFF INHALATION ×4 (09:28→21:27)
--- NOTE | 2020-04-12 13:54 | ECG_ITS ---
Measurements Intervals [place] Rate: 114 P: 6 WA: 120 QRS: 19 QRSD: 98 T: 35 QT: 318 QTc: 439 Interpretive Statements SINUS TACHYCARDIA POSSIBLE LEFT ATRIAL ENLARGEMENT BASELINE ARTIFACT- I, II, AVR, AVL, V1-V2 ABNORMAL ECG Electronically Signed On 04-12-2020 14:42:38 CDT by Qaism Davis D.O.
[2020-04-12 14:13] LABS: Alveolar/Arterial O2 Gradient 633.1 mmHg; Base Excess ABG -3.9 mEq/l (+/-2.0); Carboxyhemoglobin 0.3 % THb (0-2.0); Fractional Inspired Oxygen 100 %; HCO3 ABG 18.3 mEq/l (22.0-26.0); Methemoglobin ABG 0.3 %THb (0-1.5); Oxygen Content ABG 15.9 %vol (16.0-22.0); Oxygen Saturation ABG 90.6 % (95.0-100.0); Oxyhemoglobin 88.3 % THb (90.0-100.0); PCO2 ABG 25.9 mmHg (35.0-45.0); PO2 FiO2 Ratio Arterial Blood 0.54 %; Reduced Hemoglobin 11.1 %THb (0-5.0); Total Hemoglobin 12.8 g/dL (12.0-18.0); pH ABG 7.467 (7.350-7.450)
[2020-04-12 14:14] LABS: Device NON-REBREATHER MASK; Modified Allen's Test Pass; Site Drawn LEFT RADIAL
--- NOTE | 2020-04-12 14:49 | PC.NURSE ---
1350 called to room by tech o2 sats in 70's on 5l/nc. 2 different machines and multiple fingers used continues in 70's. Placed on high flow nc at 15l/m, o2 sats in the 80'2. Citlaly Camargo here to exam patient, orders received. c/o mid sternal chest pain, no acute resp distress noted, skin w/d, lungs clear to auscultate, noted dry non productive cough, 1415 rapid response called non rebreather placed on patient at 15l o2 sats increased to 90's. 1430 transfered to ICU 3 per bed, report to Radha.
--- NOTE | 2020-04-12 15:10 | PM.IMPN ---
Progress Note: A&P Assessment and Plan (1) Suspected COVID-19 virus infection: Code(s): Z20.828 - Contact with and (suspected) exposure to other viral communicable diseases Status: Acute Assessment and Plan: ----- COVID-19 positive, [employer] will not let me update the diagnoses at this time. Patient seemed to deteriorate today. On exam he was 76% on 10 L high-flow. A non-rebreather was added and his oxygen improved to 94%. When we took the non-rebreather off, he desaturated again. Chest x-ray appears worse than yesterday. Remdesivir was started this morning and dexamethasone has been continued. His ferritin has gone up but is CRP has improved. His white count is rising without a bacterial source at this time. I have kept the ceftriaxone and azithromycin because of the rising leukocytosis which is not typical in covid patients. I have spoken to Dr. Starks about the plan of care. (2) Sepsis: Code(s): A41.9 - Sepsis, unspecified organism Status: Acute Assessment and Plan: ----- on admission the patient had fever, tachycardia and leukocytosis. Secondary to COVID-19 pneumonia. No signs of UTI or other signs of infection that I can see. Leukocytosis is not usually consistent with COVID-19 and another source of infection may be underlying. Does not seem to have any meningeal signs. Blood cultures are negative to date. At this juncture, will continue ceftriaxone and azithromycin (3) Bilateral pulmonary infiltrates on CXR: Code(s): R91.8 - Other nonspecific abnormal finding of lung field Status: Acute Assessment and Plan: -----COVID + (4) Acute kidney failure: Code(s): N17.9 - Acute kidney failure, unspecified Status: Acute Assessment and Plan: -----Cr improving 1.3. Patient appears euvolemic today on exam (5) Obstructive sleep apnea on CPAP: Code(s): G47.33 - Obstructive sleep apnea (adult) (pediatric); Z99.89 - Dependence on other enabling machines and devices Status: Acute Assessment and Plan: -----Patient unable to use CPAP during this time due to not having negative pressure. (6) Benign prostate hyperplasia: Code(s): N40.0 - Benign prostatic hyperplasia without lower urinary tract symptoms Status: Acute Assessment and Plan: -----Continue finasteride. No evidence to suggest urinary retention. (7) Acute metabolic encephalopathy: Code(s): G93.41 - Metabolic encephalopathy Status: Acute Assessment and Plan: ----- unclear etiology at this time. the patient does have a history of hallucinating at home but this seems to be more extensive than it usually is. There is no neurological deficits on exam and I do not suspect stroke at this time. Likely hospital delirium and viral illness. My hope is that this improves as he does. He also has been diagnosed with Parkinson's and should be monitored outpatient for dementia Additional Plan Please add the additional diagnoses ([employer] will not let me had any at this time) Acute respiratory failure with hypoxia-continue supplemental oxygen COVID infection-see above Chest pain-EKG reviewed without ST changes, draw initial troponin 55 min of critical care time utilized. Spoke with Dr. Kent, SP, about plan of care Subjective Date/time seen: 04/12/20 15:10 Interval history: Pt is a 80-year-old male here for COVID-19 pneumonia. Patient was seen today after nursing staff notified me about him having hypoxia. At the time of my exam, the patient was sitting up and was saying that he felt a little short of breath with chest pain. He said the chest pain felt like pressure in his mid chest and he felt like he could not get a lot of oxygen in. He had no other complaints. Exam Narrative: Exam Narrative: General: Well developed well nourished patient in NAD but satting 76% with 10 L high-flow HEENT: normocephalic Neck: supple
[2020-04-12 15:13] LABS: Procalcitonin 0.85 ng/mL (<0.10)
--- NOTE | 2020-04-12 15:13 | WPDCNINT ---
Assessment and Plan Assessment and plan (1) Acute respiratory failure due to COVID-19: Code(s): U07.1 - COVID-19; J96.00 - Acute respiratory failure, unspecified whether with hypoxia or hypercapnia Status: Acute Assessment and Plan: Acute respiratory failure secondary to COVID-19 pneumonia, ? bacterial component SARS-CoV-2 PCR positive CXR worse today with increased oxygen requirement hence transferred to ICU Patient is in Airborne, Droplet and Contact Isolation Patient on dexamethasone started 04/11 Remdesivir started 04/12 Patient is close to 2 L positive. will hold further IV fluids Check BNP and echo. I will give Lasix if BNP is elevated Continue Rocephin and azithromycin for empiric bacterial coverage Culture sent Check and monitor inflammatory markers Consult infectious disease Patient at this time is saturating adequately on 15 L nasal cannula and non-rebreather mask. continue oxygen supplementation and titrate up or down as needed Patient is confused and may not be able to lay prone I spoke to patient's daughter Ciera by phone [phone]. I explained the possible benefits and risks of convalscent plasma and the [facility] expanded access program. She agreed and consented to administration of plasma. I have explained that it is not a proven therapy and may or may not benefit patient. She verbalized understanding and agreed to proceed. I have placed order for 1 unit of plasma at this time (2) Sepsis: Code(s): A41.9 - Sepsis, unspecified organism Status: Acute Assessment and Plan: possible patient has bacterial component to his infection continue Rocephin azithromycin will hold further fluids as BP is adequate a and chest x-rays worse culture sent and pending lactic acid level on presentation was normal some of the leukocytosis can be explained by Decadron (3) Obstructive sleep apnea on CPAP: Code(s): G47.33 - Obstructive sleep apnea (adult) (pediatric); Z99.89 - Dependence on other enabling machines and devices Status: Acute Assessment and Plan: will place patient on BiPAP at night (4) Acute metabolic encephalopathy: Code(s): G93.41 - Metabolic encephalopathy Status: Acute Assessment and Plan: appears to be delirium and toxic metabolic encephalopathy monitor no focal neurological deficit apparent (5) Chest pain: Code(s): R07.9 - Chest pain, unspecified Status: Acute Assessment and Plan: appears pleuritic and noncardiac in nature from history exam EKG showed sinus tachycardia with no ST elevation Troponin and CK-MB ordered Additional Plan DVT prophylaxis - Lovenox Stress ulcer prophylaxis - PPI Nutrition - NPO at this time Code Status - I spoke to patient's daughter Ciera by phone and she told me that patient is full code. Patient himself is unable to participate at this time due to confusion and lack of understanding of his sickness Total Critical Care Time - 40 minutes Due to a high probability of clinically significant, life threatening deterioration, the patient required my highest level of preparedness to intervene emergently and I personally spent this critical care time directly and personally managing the patient. This critical care time included obtaining a history; examining the patient; pulse oximetry; ordering and review of studies; arranging urgent treatment with development of a management plan; evaluation of patient's response to treatment; frequent reassessment; and discussions with other providers. It was exclusive of separately billable procedures and treating other patients and teaching time. Please see Assessment and Plan section and the rest of the note for further information on patient assessment and treatment [employer] Consult Note Consult date: 04/12/20 Time Seen: 14:30 HPI: Jimmy Lopez is a 80 year old male with past medical history of Parkinson's, obstructive sleep
[2020-04-12 15:27] LABS: D Dimer 1.17 ug/mL (<0.48)
[2020-04-12 16:33] LABS: NT Pro B Type Natriuretic Pept 4430 PG/ML (5-100)
[2020-04-12 16:37] LABS: Troponin I 0.031 ng/mL (0.000-0.034)
[2020-04-12] MEDS: SODIUM CHLORIDE 0.9% IV 250 ML 30 ML (18:37)
[2020-04-12] MEDS: FUROSEMIDE INJ 40 MG/4 ML VIAL IV PUSH (18:37)
[2020-04-12] MEDS: MELATONIN 5 MG TABLET PO (20:42)
[2020-04-12 21:07] LABS: Creatine Kinase MB 1.7 ng/mL (0.0-2.37)
[2020-04-12 23:14] LABS: Troponin I 0.037 ng/mL (0.000-0.034)
[2020-04-12 23:33] LABS: Creatine Kinase MB 1.4 ng/mL (0.0-2.37)
[2020-04-13] VITALS (22 sets, daily range): BP systolic 104–180; BP diastolic 61–95; PULSE 70–102; RESP 15–33; TEMP 36.2–36.9; O2SAT 84–98
--- NOTE | 2020-04-13 | ECHO_ITS ---
Patient Info Name: Jimmy Lopez Age: 80 years : 1940 Gender: Male Ht: 70 in Wt: 206 lbs BSA: 2.17 m2 HR: 90 bpm BP: 144 / 86 mmHg Heart Rhythm: Sinus Rhythm Technical Quality: Good Exam Date: 04/13/2020 8:22 AM Exam Location: [facility] Patient Status: Inpatient Admit Date: 04/11/2020 Staff Ordering Physician: Andre Starks MD Typewriter Ribbon Winder: Silver Leon, VALDEMAR, RT Attending Provider: Hien Tran MD Exam Type: CA echo doppler color flow Study Info Indications J96.01 - Acute respiratory failure with hypoxia Complete two-dimensional, color flow and Doppler transthoracic echocardiogram is performed. Summary 1. Left ventricular chamber dimension is normal. 2. Left ventricular systolic function is normal, estimated at 65-70%. 3. There is mildly increased left ventricular wall thickness. 4. The left ventricular diastolic function is grade I diastolic dysfunction. 5. Left atrial chamber dimension is mildly enlarged. 6. There is mild tricuspid valve regurgitation. 7. Mild pulmonary hypertension, estimated pulmonary arterial systolic pressure is 37 mmHg. 8. There is mild pulmonic regurgitation. Left Ventricle Left ventricular chamber dimension is normal. Left ventricular systolic function is normal, estimated at 65-70%. There is mildly increased left ventricular wall thickness. The left ventricular diastolic function is grade I diastolic dysfunction. Right Ventricle Right ventricular chamber dimension is normal. Right ventricular systolic function is normal. Left Atria Left atrial chamber dimension is mildly enlarged. Right Atria Right atrial chamber dimension is normal. Atrial Septum Intact interatrial septum visualized by color flow imaging. Aortic Valve The aortic valve is trileaflet. There is mild aortic valve sclerosis. There is no aortic valve stenosis. There is trace aortic valve regurgitation. Pulmonic Valve The pulmonic valve is normal. There is no pulmonic valve stenosis. There is mild pulmonic regurgitation. Mitral Valve The mitral valve has thickened leaflets. There is no mitral valve stenosis. There is trace mitral valve regurgitation. Tricuspid Valve The tricuspid valve leaflets are normal. There is no significant tricuspid valve stenosis. There is mild tricuspid valve regurgitation. Mild pulmonary hypertension, estimated pulmonary arterial systolic pressure is 37 mmHg. Pericardium/Pleural The pericardium appears normal. There is no pericardial effusion. Inferior Vena Cava Dilated inferior vena cava with >50% collapse upon inspiration consistent with elevated right atrial pressure, 10 mmHg. Aorta The aortic root size at the sinus of Valsalva is normal. The prox ascending aorta size is normal. Left Ventricular Outflow Tract Name Value Normal LVOT 2D LVOT Diameter 2.1 cm LVOT Doppler LVOT Peak Gradient 7 mmHg LVOT Mean Gradient 3 mmHg LVOT VTI 25 cm LVOT VTI/AV VTI Ratio 0.8 LVOT Stroke Volume
[2020-04-13 02:05] LABS: Hematocrit 31.4 % (42.0-52.0); Mean Corpuscular Hemoglobin 30.8 pg (26-34); Mean Platelet Volume 10.3 fl (7.4-10.4); Platelet Count Result 226 k/mm3 (150-375); Red Blood Count 3.57 M/mm3 (4.6-6.20); Red Cell Distribution Width 14.5 % (11.5-14.5); White Blood Count 20.9 K/mm3 (4.5-10.0)
[2020-04-13 02:18] LABS: D Dimer 1.21 ug/mL (<0.48)
[2020-04-13 02:30] LABS: Alanine Aminotransferase 17 U/L (4-50); Anion Gap 8 mmol/L (8-16); Blood Urea Nitrogen 48 mg/dL (9-20); Calcium 8.6 mg/dL (8.4-10.2); Carbon Dioxide 25 mmol/L (22-30); Chloride 106 mmol/L (98-107); Estimated CRCL calculation 42 ml/min; Estimated Glomerular Filt Rate 53; Glucose 166 mg/dL (75-110); Lactate Dehydrogenase 733 U/L (313-618); Potassium 4.2 mmol/L (3.4-5.0); Sodium 139 mmol/L (137-145)
[2020-04-13 02:49] LABS: CRP 31.8 mg/dL (<1.0)
[2020-04-13] MEDS: FINASTERIDE 5 MG TABLET PO (07:58)
[2020-04-13] MEDS: ENOXAPARIN 30 MG/0.3 ML SYRINGE SUB-Q (07:58)
[2020-04-13] MEDS: ALBUTEROL SULFATE (*SP) INHALER 2 PUFF INHALATION ×4 (08:09→20:15)
[2020-04-13] MEDS: REMDESIVIR 100 MG/NS 250 ML 100 MG/250 ML BAG 250 MG IVPB (09:19)
--- NOTE | 2020-04-13 09:30 | WPDINTPN ---
Progress Note: A&P Assessment and Plan (1) Acute respiratory failure due to COVID-19: Code(s): U07.1 - COVID-19; J96.00 - Acute respiratory failure, unspecified whether with hypoxia or hypercapnia Status: Acute Assessment and Plan: Acute respiratory failure secondary to COVID-19 pneumonia, ? bacterial component SARS-CoV-2 PCR positive CXR worsen 04/12 with increased oxygen requirement hence transferred to ICU Patient is in Airborne, Droplet and Contact Isolation Patient on dexamethasone started 04/11 Remdesivir started 04/12 04/12 Convalscent Plasma 1 unit Transfused BNP was elevated hence Lasix 40 mg IV was given. will give another dose of Lasix today Continue Rocephin and azithromycin for empiric bacterial coverage Culture sent and pending Continue to monitor inflammatory markers Consulted infectious disease I will try AirVo high-flow nasal cannula today and continue using BiPAP p.r.n. and at night (2) Sepsis: Code(s): A41.9 - Sepsis, unspecified organism Status: Acute Assessment and Plan: possible patient has bacterial component to his infection continue Rocephin azithromycin will hold further fluids as BP is adequate a and chest x-rays worse culture sent and negative till date lactic acid level on presentation was normal some of the leukocytosis can be explained by Decadron (3) Obstructive sleep apnea on CPAP: Code(s): G47.33 - Obstructive sleep apnea (adult) (pediatric); Z99.89 - Dependence on other enabling machines and devices Status: Acute Assessment and Plan: BiPAP at night (4) Acute metabolic encephalopathy: Code(s): G93.41 - Metabolic encephalopathy Status: Acute Assessment and Plan: appears to be delirium and toxic metabolic encephalopathy alert oriented x3 today monitor no focal neurological deficit apparent (5) Chest pain: Code(s): R07.9 - Chest pain, unspecified Status: Acute Assessment and Plan: appears pleuritic and noncardiac in nature from history exam EKG showed sinus tachycardia with no ST elevation Troponin and CK-MB essentially flat (6) CHF (congestive heart failure): Code(s): I50.9 - Heart failure, unspecified Status: Acute Assessment and Plan: ECHO 04/13 showed diastolic dysfunction and elevated pulmonary pressure Summary 1. Left ventricular chamber dimension is normal. 2. Left ventricular systolic function is normal, estimated at 65-70%. 3. There is mildly increased left ventricular wall thickness. 4. The left ventricular diastolic function is grade I diastolic dysfunction. 5. Left atrial chamber dimension is mildly enlarged. 6. There is mild tricuspid valve regurgitation. 7. Mild pulmonary hypertension, estimated pulmonary arterial systolic pressure is 37 mmHg. 8. There is mild pulmonic regurgitation. Inferior Vena Cava Dilated inferior vena cava with >50% collapse upon inspiration consistent with elevated right atrial pressure, 10 mmHg. Additional Plan DVT prophylaxis - Lovenox Stress ulcer prophylaxis - PPI Nutrition - clear liquid diet Code Status - I spoke to patient's daughter Ciera by phone yesterday and she told me that patient is full code. Patient himself is unable to participate at this time due to confusion and lack of understanding of his sickness Total Critical Care Time - 30 minutes Due to a high probability of clinically significant, life threatening deterioration, the patient required my highest level of preparedness to intervene emergently and I personally spent this critical care time directly and personally managing the patient. This critical care time included obtaining a history; examining the patient; pulse oximetry; ordering and review of studies; arranging urgent treatment with development of a management plan; evaluation of patient's response to treatment; frequent reassessment; and discussions with other prov
[2020-04-13] MEDS: FUROSEMIDE INJ 40 MG/4 ML VIAL IV PUSH (11:50)
[2020-04-14] VITALS (40 sets, daily range): BP systolic 100–160; BP diastolic 53–102; PULSE 47–105; RESP 16–34; TEMP 33.8–37; O2SAT 89–100; BMI 30.7
[2020-04-14 05:22] LABS: D Dimer 1.56 ug/mL (<0.48)
[2020-04-14 05:33] LABS: Alanine Aminotransferase 17 U/L (4-50)
[2020-04-14] MEDS: OLANZapine 10 MG INJ VIAL IM (06:39)
[2020-04-14 06:58] LABS: Alveolar/Arterial O2 Gradient 517.4 mmHg; Base Excess ABG -1.9 mEq/l (+/-2.0); Carboxyhemoglobin 0.2 % THb (0-2.0); Fractional Inspired Oxygen 90 %; HCO3 ABG 21.2 mEq/l (22.0-26.0); Methemoglobin ABG 0.4 %THb (0-1.5); Oxygen Content ABG 17.2 %vol (16.0-22.0); Oxygen Saturation ABG 97.5 % (95.0-100.0); Oxyhemoglobin 95.9 % THb (90.0-100.0); PO2 ABG 92.5 mmHg (80.0-100.0); PO2 FiO2 Ratio Arterial Blood 1.03 %; Reduced Hemoglobin 3.5 %THb (0-5.0); Total Hemoglobin 12.7 g/dL (12.0-18.0); pH ABG 7.452 (7.350-7.450)
[2020-04-14 06:59] LABS: Device NON-INVASIVE VENT; Modified Allen's Test Pass; Site Drawn RIGHT RADIAL
[2020-04-14 07:00] LABS: Non-Invasive Expiratory Pressure 6 CMH2O; Non-Invasive Inspiratory Pressure 12 CMH2O; Non-Invasive Vent Rate 12 /MIN
[2020-04-14] MEDS: ENOXAPARIN 40 MG/0.4 ML SYRINGE SUB-Q (08:07)
--- NOTE | 2020-04-14 08:07 | PCRTNOTE ---
0800 inhalers not given at this time. pt. is cont. bipap.
[2020-04-14] MEDS: REMDESIVIR 100 MG/NS 250 ML 100 MG/250 ML BAG 250 MG IVPB (09:39)
--- NOTE | 2020-04-14 10:24 | WPDURCON ---
Assessment and Plan Assessment and plan (1) Hypospadias in male: Code(s): Q54.9 - Hypospadias, unspecified Status: Acute (2) Urethral stricture: Code(s): N35.919 - Unspecified urethral stricture, male, unspecified site Status: Acute Assessment and Plan: Patient has a distal shaft hypospadius with slight stricture in the distal urethra. I dilated the urethral stricture with ease and placed a 16 F catheter. Both The catheter can be removed at any time from our standpoint. Urology Consult Note HPI Date Seen: 04/14/20 Requesting Physician: Hien Tran MD Primary Care Provider: Sabra TejadaMD Consult Narrative Narrative: Jimmy Lopez is a 80 year old male With a known history of BPH that responds nicely to finasteride. He is admitted to the ICU with respiratory distress and has a known COVID infection. There has been no verbal diminished urine output prompting request for placement of a urethral catheter. Review of Systems Review of Systems: ROS unobtainable: Yes unobtainable due to mental status PMFSH Past Medical History Medical History Benign prostate hyperplasia Obstructive sleep apnea on CPAP Parkinson disease Recently diagnosed, early stage, not on medication. Psoriasis Surgical History Surgical History History of appendectomy Status post total left knee replacement (~09/20/19) Family History Family History Other Family history of cardiovascular disease Social History Social History Social History: Surrogate decision maker: Halima Lopez, . Code status: Full code. Smoking packs per day: 1 Smoking cigarettes per day: 20.0 Years smoked: 40 Smoking pack-years: 40.00 Smoking status: Former smoker Additional smoking assessment comments: Quit in 1991. Alcohol intake: current Drinks per week: 2 Substance use: never Substance use type: does not use Additional living arrangements comments: Resides with his in [place]. Additional occupation/education comments: Retired, worked in [employer]. Gender identity (if verbalized by the patient): Male Spiritual care concerns: No Agree to blood products: Yes Meds Home Medications and Allergies Home Medications Medication Instructions Recorded Confirmed Type finasteride 5 mg tablet 5 mg PO DAILY 08/17/19 04/10/20 History Allergies Allergy/AdvReac Type Severity Reaction Status Date / Time Penicillins Allergy Unknown Swelling Verified 04/10/20 10:14 egg AdvReac Vomiting Verified 04/10/20 13:40 Vital Signs Vital Signs - 24 hr 04/13/20 12:00 04/13/20 12:05 04/13/20 14:00 Temperature 98.2 F Pulse Rate 77 81 79 Respiratory Rate 25 H 28 H 29 H Blood Pressure 146/68 H 135/67 Pulse Oximetry 90 93 95 04/13/20 14:51 04/13/20 16:00 04/13/20 16:45 Temperature 98.4 F Pulse Rate 87 78 91 Respiratory Rate 31 H 26 H 27 H Blood Pressure 121/90 Pulse Oximetry 94 96 95 04/13/20 17:59 04/13/20 18:00 04/13/20 20:00 Temperature 97.1 F L Pulse Rate 102 H 101 H 102 H Respiratory Rate 24 H 33 H Blood Pressure 180/71 H 158/75 H Pulse Oximetry 93 95 04/13/20 20:13 04/13/20 22:00 04/14/20 00:00 Temperature 96.6 F L Pulse Rate 94 102 H 93 Respiratory Rate 33 H 21 H 34 H Blood Pressure 129/95 H 160/81 H Pulse Oximetry 94 98 97 04/14/20 01:10 04/14/20 02:00 04/14/20 04:00 Temperature 96.7 F L Pulse Rate 98 98 105 H Respiratory Rate 24 H 24 H 29 H Blood Pressure 148/102 H 152/95 H Pulse Oximetry 97 97 89 L 04/14/20 06:00 04/14/20 06:50 04/14/20 08:00 Temperature 97.3 F L 98 F Pulse Rate 94 100 71 Respiratory Rate 16 26 H 26 H Blood Pressure 100/70 134/58 L Pulse Oximetry 94 96 98 04/14/20 0
--- NOTE | 2020-04-14 10:30 | WPDINTPN ---
Progress Note: A&P Assessment and Plan (1) Acute respiratory failure due to COVID-19: Code(s): U07.1 - COVID-19; J96.00 - Acute respiratory failure, unspecified whether with hypoxia or hypercapnia Status: Acute Assessment and Plan: Acute respiratory failure secondary to COVID-19 pneumonia, ? bacterial component SARS-CoV-2 PCR positive CXR worsen 04/12 with increased oxygen requirement hence transferred to ICU Patient is in Airborne, Droplet and Contact Isolation Patient on dexamethasone started 04/11 Remdesivir started 04/12 04/12 Convalscent Plasma 1 unit Transfused BNP was elevated hence Lasix 40 mg IV was given over last 2 days. Continue Rocephin and azithromycin for empiric bacterial coverage Culture sent and negative till now Continue to monitor inflammatory markers Consulted infectious disease patient tolerated air Will for few hours yesterday and was on BiPAP overnight. Morning he is too drowsy so will continue BiPAP at this time and will give him break once he is more awake. patient does have history of sleep apnea does appear to be a mouth breather (2) Sepsis: Code(s): A41.9 - Sepsis, unspecified organism Status: Acute Assessment and Plan: possible patient has bacterial component to his infection continue Rocephin azithromycin will hold further fluids as BP is adequate a and chest x-rays worse culture sent and negative till date lactic acid level on presentation was normal some of the leukocytosis can be explained by Decadron (3) Obstructive sleep apnea on CPAP: Code(s): G47.33 - Obstructive sleep apnea (adult) (pediatric); Z99.89 - Dependence on other enabling machines and devices Status: Acute Assessment and Plan: BiPAP at night and p.r.n. (4) Acute metabolic encephalopathy: Code(s): G93.41 - Metabolic encephalopathy Status: Acute Assessment and Plan: appears to be delirium and toxic metabolic encephalopathy alert oriented x3 today he was confused and agitated overnight and was given Ativan and then Zyprexa I will use Precedex infusion if needed (5) Chest pain: Code(s): R07.9 - Chest pain, unspecified Status: Acute Assessment and Plan: appears pleuritic and noncardiac in nature from history exam EKG showed sinus tachycardia with no ST elevation Troponin and CK-MB remained essentially flat (6) CHF (congestive heart failure): Code(s): I50.9 - Heart failure, unspecified Status: Acute Assessment and Plan: patient was given Lasix over last 2 days ECHO 04/13 showed diastolic dysfunction and elevated pulmonary pressure Summary 1. Left ventricular chamber dimension is normal. 2. Left ventricular systolic function is normal, estimated at 65-70%. 3. There is mildly increased left ventricular wall thickness. 4. The left ventricular diastolic function is grade I diastolic dysfunction. 5. Left atrial chamber dimension is mildly enlarged. 6. There is mild tricuspid valve regurgitation. 7. Mild pulmonary hypertension, estimated pulmonary arterial systolic pressure is 37 mmHg. 8. There is mild pulmonic regurgitation. Inferior Vena Cava Dilated inferior vena cava with >50% collapse upon inspiration consistent with elevated right atrial pressure, 10 mmHg. (7) Delirium: Code(s): R41.0 - Disorientation, unspecified Status: Acute Assessment and Plan: patient was confused last night and agitated and was given Ativan and Zyprexa fairly drowsy this more I will use Precedex infusion if needed (8) Urinary obstruction: Code(s): N13.9 - Obstructive and reflux uropathy, unspecified Status: Acute Assessment and Plan: nurses unable to place Ross catheter. Urology was consulted and Ross placed Additional Plan DVT prophylaxis - Lovenox Stress ulcer prophylaxis - PPI Nutrition - clear liquid diet Code Status - I spoke to patient's
[2020-04-14 11:07] LABS: Estimated CRCL calculation 56 ml/min; Estimated Glomerular Filt Rate > 60
--- NOTE | 2020-04-14 11:32 | WPDINFPN2 ---
Progress Note: A&P Assessment and Plan (1) Pneumonia due to COVID-19 virus: Code(s): U07.1 - COVID-19; J12.89 - Other viral pneumonia Status: Acute Assessment and Plan: CoVid viral pneumonia REC Dexamethasone # 3/10, remdesivir # 3 / 5, and plasma given. Stop antibacterials. Will f/u periodically Subjective Date/time seen: 04/14/20 11:32 Objective Data Vital Signs Vital Signs: Vital Signs - 24 hr 04/13/20 12:00 04/13/20 12:05 04/13/20 14:00 Temperature 36.8 C Pulse Rate 77 81 79 Respiratory Rate 25 H 28 H 29 H Blood Pressure 146/68 H 135/67 Pulse Oximetry 90 93 95 04/13/20 14:51 04/13/20 16:00 04/13/20 16:45 Temperature 36.9 C Pulse Rate 87 78 91 Respiratory Rate 31 H 26 H 27 H Blood Pressure 121/90 Pulse Oximetry 94 96 95 04/13/20 17:59 04/13/20 18:00 04/13/20 20:00 Temperature 36.2 C L Pulse Rate 102 H 101 H 102 H Respiratory Rate 24 H 33 H Blood Pressure 180/71 H 158/75 H Pulse Oximetry 93 95 04/13/20 20:13 04/13/20 22:00 04/14/20 00:00 Temperature 35.9 C L Pulse Rate 94 102 H 93 Respiratory Rate 33 H 21 H 34 H Blood Pressure 129/95 H 160/81 H Pulse Oximetry 94 98 97 04/14/20 01:10 04/14/20 02:00 04/14/20 04:00 Temperature 35.9 C L Pulse Rate 98 98 105 H Respiratory Rate 24 H 24 H 29 H Blood Pressure 148/102 H 152/95 H Pulse Oximetry 97 97 89 L 04/14/20 06:00 04/14/20 06:50 04/14/20 08:00 Temperature 36.3 C L 36.6 C Pulse Rate 94 100 71 Respiratory Rate 16 26 H 26 H Blood Pressure 100/70 134/58 L Pulse Oximetry 94 96 98 04/14/20 08:01 04/14/20 08:07 04/14/20 08:18 Temperature Pulse Rate 70 58 L 70 Respiratory Rate 27 H 29 H 25 H Blood Pressure Pulse Oximetry 97 04/14/20 10:00 04/14/20 10:58 Temperature Pulse Rate 60 62 Respiratory Rate 22 H 22 H Blood Pressure 115/58 L Pulse Oximetry 97 95 Intake/Output Intake/Output: Intake & Output 04/11/20 04/12/20 04/13/20 04/14/20 23:59 23:59 23:59 23:59 Intake Total 1410 2510 550 50.97 Output Total 725 359 5064 625 Balance 760 2009 -1600 -574.03 Meds/Results Medications: Active Medications Generic Name Dose Route Start Last Admin Trade Name Freq PRN Reason Stop Dose Admin Acetaminophen 650 mg 04/10/20 11:37 04/12/20 01:05 Tylenol Tablet PO 650 mg Q4H PRN Administration Mild Pain (1-3) or Fever Albuterol 2 puff 04/11/20 16:00 04/14/20 08:07 Proventil Hfa INHALATION Not Given QIDRT [facility] Dexamethasone Sodium Phosphate 6 mg 04/15/20 09:00 Decadron 10 Mg/Ml Inj PO 04/21/20 09:01 DAILY [facility] Enoxaparin Sodium 40 mg 04/14/20 09:00 04/14/20 08:07 Lovenox SUB-Q 40 mg DAILY JEANIE Administration Finasteride 5 mg 04/11/20 09:00 04/14/20 08:07 Proscar PO Not Given DAILY JEANIE Remdesivir 100 mg in 250 mls @ 250 mls/hr 04/13/20 09:00 04/14/20 09:39 IVPB 04/16/20 09:59 250 mls/hr Q24H JEANIE Administration Dexmedetomidine HCl 400 mcg in 100 mls @ 4.865 mls/hr 04/14/20 08:00 04/14/20 08:01 Precedex 400 Mcg/100 Ml IV CONT 0.2 mcg/kg/hr .[id number] JEANIE 4.9 mls/hr Administration Protocol 0.2 MCG/KG/HR Melatonin 5 mg 04/11/20 21:00 04/13/20 21:27 Melatonin PO Not Given HS JEANIE Ondansetron HCl 4 mg 04/10/20 11:37 Zofran Inj IV PUSH Q4H PRN Nausea Radiology Results: ITS Impressions Chest X-Ray 04/12/20 09:10 IMPRESSION: 1. Worsened diffuse lung disease, consistent with pneumonia versus pulmonary edema. Labs Labs: Laboratory Results - last 24 hr 04/14/20 04/14/20 04/14/20 04:48 04:48 06:50 D-Dimer 1.56 H Puncture Site Right radial ABG pH 7.452 H ABG pCO2 31.0 L ABG pO2 92.5 ABG PO2/FiO2 Ratio 1.03 ABG HCO3 21.2 L ABG O2 Saturation 97.5 ABG O2 Content 17.2 ABG Base Excess -1.9 A-a Gradient 517.4 Oxyhemoglobin 95.9 Carboxyhemoglobin 0.2 Methemoglobin 0.4 Reduced Hemoglobin 3.5 Total
[2020-04-14] MEDS: ALBUTEROL SULFATE (*SP) INHALER 2 PUFF INHALATION ×2 (14:19→19:48)
--- NOTE | 2020-04-14 17:36 | PM.IMPN ---
Progress Note: A&P Assessment and Plan (1) Suspected COVID-19 virus infection: Code(s): Z20.828 - Contact with and (suspected) exposure to other viral communicable diseases Status: Inactive Assessment and Plan: Pt is a 80-year-old male here for COVID-19 pneumonia. Pt had a rapid response and was transferredto icu for desaturation. Pt recived plasma on remdesivir and iv dexamethasone now. Seen by ID and by ICU doctors today (2) Sepsis: Code(s): A41.9 - Sepsis, unspecified organism Status: Acute Assessment and Plan: ----- on admission the patient had fever, tachycardia and leukocytosis. Secondary to COVID-19 pneumonia. (3) Bilateral pulmonary infiltrates on CXR: Code(s): R91.8 - Other nonspecific abnormal finding of lung field Status: Acute Assessment and Plan: -----COVID + (4) Acute kidney failure: Code(s): N17.9 - Acute kidney failure, unspecified Status: Acute Assessment and Plan: -Wcc , creat is 1 (5) Obstructive sleep apnea on CPAP: Code(s): G47.33 - Obstructive sleep apnea (adult) (pediatric); Z99.89 - Dependence on other enabling machines and devices Status: Acute (6) Benign prostate hyperplasia: Code(s): N40.0 - Benign prostatic hyperplasia without lower urinary tract symptoms Status: Acute Assessment and Plan: -----Continue finasteride. No evidence to suggest urinary retention. (7) Acute metabolic encephalopathy: Code(s): G93.41 - Metabolic encephalopathy Status: Acute Subjective Date/time seen: 04/14/20 17:36 Interval history: Pt is a 80-year-old male here for COVID-19 pneumonia. Pt had a rapid response and was transferredto icu for desaturation. Pt recived plasma on remdesivir and iv dexamethasone now. Seen by ID and by ICU doctors today. Review of Systems Review of Systems: All systems reviewed & are unremarkable except as noted in HPI and below Respiratory: Respiratory: Reports cough Exam Narrative: Exam Narrative: pt is on BIPAP, mild respiratory distress Objective Data Vital Signs Vital Signs: Vital Signs - 24 hr 04/13/20 17:59 04/13/20 18:00 04/13/20 20:00 Temperature 36.2 C L Pulse Rate 102 H 101 H 102 H Respiratory Rate 24 H 33 H Blood Pressure 180/71 H 158/75 H Pulse Oximetry 93 95 04/13/20 20:13 04/13/20 22:00 04/14/20 00:00 Temperature 35.9 C L Pulse Rate 94 102 H 93 Respiratory Rate 33 H 21 H 34 H Blood Pressure 129/95 H 160/81 H Pulse Oximetry 94 98 97 04/14/20 01:10 04/14/20 02:00 04/14/20 04:00 Temperature 35.9 C L Pulse Rate 98 98 105 H Respiratory Rate 24 H 24 H 29 H Blood Pressure 148/102 H 152/95 H Pulse Oximetry 97 97 89 L 04/14/20 06:00 04/14/20 06:50 04/14/20 08:00 Temperature 36.3 C L 36.6 C Pulse Rate 94 100 71 Respiratory Rate 16 26 H 26 H Blood Pressure 100/70 134/58 L Pulse Oximetry 94 96 98 04/14/20 08:01 04/14/20 08:07 04/14/20 08:18 Temperature Pulse Rate 70 58 L 70 Respiratory Rate 27 H 29 H 25 H Blood Pressure Pulse Oximetry 97 04/14/20 09:30 04/14/20 10:00 04/14/20 10:30 Temperature Pulse Rate 85 60 87 Respiratory Rate 22 H 22 H 25 H Blood Pressure 115/58 L Pulse Oximetry 97 04/14/20 10:58 04/14/20 11:30 04/14/20 12:00 Temperature 36.9 C Pulse Rate 62 75 63 Respiratory Rate 22 H 30 H 26 H Blood Pressure 116/54 L Pulse Oximetry 95 96 04/14/20 12:30 04/14/20 13:30 04/14/20 13:56 Temperature Pulse Rate 89 89 83 Respiratory Rate 27 H 32 H Blood Pressure Pulse Oximetry 04/14/20 14:00 04/14/20 14:16 04/14/20 16:00 Temperature 37.0 C Pulse Rate 86 83 54 L Respiratory Rate 25 H 30 H 22 H Blood Pressure 118/87 117/62 Pulse Oximetry 96 97 95 04/14/20 16:06 Temperature Pulse Rate 51 L Respiratory Rate 23 H Blood Pressure Pulse Oximetry 95 Intake/Output Intake/Output: Intake & Output 04/11/20 0
[2020-04-15] VITALS (23 sets, daily range): BP systolic 112–180; BP diastolic 51–76; PULSE 60–101; RESP 18–36; TEMP 36.2–36.9; O2SAT 90–100
[2020-04-15 06:52] LABS: Estimated CRCL calculation 51 ml/min; Estimated Glomerular Filt Rate 58
[2020-04-15 06:59] LABS: NT Pro B Type Natriuretic Pept 556 PG/ML (5-100)
[2020-04-15 07:01] LABS: D Dimer 1.57 ug/mL (<0.48)
[2020-04-15 07:32] LABS: Alanine Aminotransferase 15 U/L (4-50); CRP 17.9 mg/dL (<1.0); Lactate Dehydrogenase 694 U/L (313-618)
[2020-04-15] MEDS: REMDESIVIR 100 MG/NS 250 ML 100 MG/250 ML BAG 250 MG IVPB (08:13)
[2020-04-15] MEDS: ENOXAPARIN 40 MG/0.4 ML SYRINGE SUB-Q (08:13)
[2020-04-15 08:47] LABS: Basophils Percent Auto 0.1 % (0.2-1.2); Hematocrit 33.6 % (42.0-52.0); Hemoglobin 11.7 g/dL (14.0-18.0); Immature Granulocyte Absolute 0.12 K/mm3 (0.00-0.031); Immature Granulocyte Percent A 0.7 % (0-0.5); Lymphocytes Absolute Auto 0.93 K/mm3 (0.9-3.2); Lymphocytes Percent Auto 5.8 % (18.3-44.2); Mean Corpuscular HGB Conc 34.8 g/dl (32-36); Mean Corpuscular Hemoglobin 30.5 pg (26-34); Mean Corpuscular Volume 87.7 fl (80-100); Mean Platelet Volume 10.4 fl (7.4-10.4); Monocytes Percent Auto 5.9 % (2.6-8.5); Neutrophils Absolute Auto 14.1 K/mm3 (1.3-6.7); Neutrophils Percent Auto 87.5 % (45.5-73.1); Platelet Count Result 296 k/mm3 (150-375); Red Blood Count 3.83 M/mm3 (4.6-6.20); Red Cell Distribution Width 15.1 % (11.5-14.5); White Blood Count 16.1 K/mm3 (4.5-10.0)
[2020-04-15] MEDS: ALBUTEROL SULFATE (*SP) INHALER 2 PUFF INHALATION ×4 (09:00→21:22)
[2020-04-15 09:02] LABS: Alanine Aminotransferase 14 U/L (4-50); Alkaline Phosphatase 51 U/L (38-126); Anion Gap 5 mmol/L (8-16); Aspartate Amino Transferase 19 U/L (17-59); Bilirubin,Total 0.5 mg/dL (0.2-1.3); Blood Urea Nitrogen 68 mg/dL (9-20); Calcium 8.8 mg/dL (8.4-10.2); Carbon Dioxide 25 mmol/L (22-30); Chloride 111 mmol/L (98-107); Estimated CRCL calculation 51 ml/min; Estimated Glomerular Filt Rate 58; Glucose 143 mg/dL (75-110); Magnesium 2.5 mg/dL (1.6-2.3); Potassium 4.3 mmol/L (3.4-5.0); Sodium 141 mmol/L (137-145)
--- NOTE | 2020-04-15 10:15 | WPDINTPN ---
Progress Note: A&P Assessment and Plan (1) Acute respiratory failure due to COVID-19: Code(s): U07.1 - COVID-19; J96.00 - Acute respiratory failure, unspecified whether with hypoxia or hypercapnia Status: Acute Assessment and Plan: Acute respiratory failure secondary to COVID-19 pneumonia, SARS-CoV-2 PCR positive CXR worsen 04/12 with increased oxygen requirement hence transferred to ICU Patient is in Airborne, Droplet and Contact Isolation Patient on dexamethasone started 04/11 Remdesivir started 04/12 04/12 Convalscent Plasma 1 unit Transfused BNP was elevated hence Lasix 40 mg IV was given over last 2 days. Rocephin and azithromycin discontinued by ID Culture sent and negative till now Continue to monitor inflammatory markers Consulted infectious disease Patient on BiPAP at this time. I will hold Precedex and once he is more awake will try high-flow nasal cannula (2) Sepsis: Code(s): A41.9 - Sepsis, unspecified organism Status: Acute Assessment and Plan: Rocephin azithromycin which was started empirically in the beginning were discontinued 04/14 as cultures have been negative will hold further fluids as BP is adequate a and chest x-rays worse culture sent and negative till date lactic acid level on presentation was normal leukocytosis is improving and some of the leukocytosis can be explained by Decadron (3) Obstructive sleep apnea on CPAP: Code(s): G47.33 - Obstructive sleep apnea (adult) (pediatric); Z99.89 - Dependence on other enabling machines and devices Status: Acute Assessment and Plan: BiPAP at night and p.r.n. (4) Acute metabolic encephalopathy: Code(s): G93.41 - Metabolic encephalopathy Status: Acute Assessment and Plan: appears to be delirium and toxic metabolic encephalopathy alert oriented x3 today he was confused and agitated overnight and was given Ativan and then Zyprexa I will use Precedex infusion if needed (5) Chest pain: Code(s): R07.9 - Chest pain, unspecified Status: Acute Assessment and Plan: appears pleuritic and noncardiac in nature from history exam EKG showed sinus tachycardia with no ST elevation Troponin and CK-MB remained essentially flat (6) CHF (congestive heart failure): Code(s): I50.9 - Heart failure, unspecified Status: Acute Assessment and Plan: patient was given Lasix initially on presentation to ICU ECHO 8/13 showed diastolic dysfunction and elevated pulmonary pressure Summary 1. Left ventricular chamber dimension is normal. 2. Left ventricular systolic function is normal, estimated at 65-70%. 3. There is mildly increased left ventricular wall thickness. 4. The left ventricular diastolic function is grade I diastolic dysfunction. 5. Left atrial chamber dimension is mildly enlarged. 6. There is mild tricuspid valve regurgitation. 7. Mild pulmonary hypertension, estimated pulmonary arterial systolic pressure is 37 mmHg. 8. There is mild pulmonic regurgitation. Inferior Vena Cava - Dilated inferior vena cava with >50% collapse upon inspiration consistent with elevated right atrial pressure, 10 mmHg. (7) Delirium: Code(s): R41.0 - Disorientation, unspecified Status: Acute Assessment and Plan: patient was confused last night and agitated and was given Ativan and Zyprexa fairly drowsy this more I will hold Precedex infusion this time (8) Urinary obstruction: Code(s): N13.9 - Obstructive and reflux uropathy, unspecified Status: Acute Assessment and Plan: nurses were unable to place Ross catheter. Urology was consulted and Ross placed 04/14 Additional Plan DVT prophylaxis - Lovenox Stress ulcer prophylaxis - PPI Nutrition - clear liquid diet Code Status - patient is full code as per patient's daughter Ciera Total Critical Care Time - 30 minutes Due to a high probability of
--- NOTE | 2020-04-15 18:40 | PM.IMPN ---
Progress Note: A&P Assessment and Plan (1) Suspected COVID-19 virus infection: Code(s): Z20.828 - Contact with and (suspected) exposure to other viral communicable diseases Status: Inactive Assessment and Plan: Pt is a 80-year-old male here for COVID-19 pneumonia. Pt had a rapid response and was transferredto icu for desaturation. Pt received plasma on remdesivir and iv dexamethasone. pt is on bipap off precedex (2) Sepsis: Code(s): A41.9 - Sepsis, unspecified organism Status: Acute Assessment and Plan: ----- on admission the patient had fever, tachycardia and leukocytosis. Secondary to COVID-19 pneumonia. (3) Bilateral pulmonary infiltrates on CXR: Code(s): R91.8 - Other nonspecific abnormal finding of lung field Status: Acute Assessment and Plan: -----COVID + (4) Acute kidney failure: Code(s): N17.9 - Acute kidney failure, unspecified Status: Acute Assessment and Plan: -Wcc [id number], creat is 1 (5) Obstructive sleep apnea on CPAP: Code(s): G47.33 - Obstructive sleep apnea (adult) (pediatric); Z99.89 - Dependence on other enabling machines and devices Status: Acute (6) Benign prostate hyperplasia: Code(s): N40.0 - Benign prostatic hyperplasia without lower urinary tract symptoms Status: Acute Assessment and Plan: -----Continue finasteride. No evidence to suggest urinary retention. (7) Acute metabolic encephalopathy: Code(s): G93.41 - Metabolic encephalopathy Status: Acute Subjective Date/time seen: 04/15/20 18:40 Interval history: Pt is a 80-year-old male here for COVID-19 pneumonia. Pt had a rapid response and was transferredto icu for desaturation. Pt recived plasma on remdesivir and iv dexamethasone. pt on bipap Review of Systems Review of Systems: All systems reviewed & are unremarkable except as noted in HPI and below Exam Narrative: Exam Narrative: pt is on BIPAP, mild respiratory distress Objective Data Vital Signs Vital Signs: Vital Signs - 24 hr 04/14/20 20:00 04/14/20 20:22 04/14/20 20:25 Temperature 34.3 C L Pulse Rate 48 L 50 L Respiratory Rate 17 21 H Blood Pressure 142/66 H Pulse Oximetry 95 04/14/20 21:35 04/14/20 21:45 04/14/20 22:00 Temperature 34.4 C L 33.9 C L 33.8 C L Pulse Rate 47 L 50 L 49 L Respiratory Rate 21 H 18 18 Blood Pressure 140/75 139/64 135/61 Pulse Oximetry 92 96 96 04/14/20 22:14 04/14/20 22:30 04/14/20 22:45 Temperature 34.3 C L 34.6 C L 34.9 C L Pulse Rate 50 L 50 L 51 L Respiratory Rate 18 18 20 Blood Pressure 125/53 L 129/56 L 123/53 L Pulse Oximetry 96 96 96 04/14/20 22:59 04/14/20 23:06 04/14/20 23:29 Temperature 35.1 C L 35.7 C L Pulse Rate 54 L 66 63 Respiratory Rate 18 22 H 18 Blood Pressure 118/56 L 113/57 L Pulse Oximetry 95 97 94 04/14/20 23:30 04/15/20 00:00 04/15/20 00:35 Temperature 35.7 C L 36.6 C Pulse Rate 66 67 Respiratory Rate 22 H 25 H Blood Pressure 116/55 L Pulse Oximetry 93 04/15/20 01:30 04/15/20 02:00 04/15/20 02:47 Temperature 36.9 C Pulse Rate 62 65 88 Respiratory Rate 22 H 25 H 23 H Blood Pressure 118/56 L Pulse Oximetry 95 93 96 04/15/20 02:59 04/15/20 04:00 04/15/20 06:00 Temperature 36.8 C Pulse Rate 88 62 60 Respiratory Rate 22 H 23 H 24 H Blood Pressure 123/59 L 133/58 L Pulse Oximetry 100 96 90 04/15/20 06:08 04/15/20 08:00 04/15/20 08:50 Temperature 36.6 C Pulse Rate 60 62 64 Respiratory Rate 24 H 28 H 29 H Blood Pressure 124/56 L Pulse Oximetry 92 96 04/15/20 10:00 04/15/20 11:33 04/15/20 11:38 Temperature 36.6 C Pulse Rate 65 68 Respiratory Rate 28 H 28 H Blood Pressure 120/51 L 112/59 L Pulse Oximetry 94 90 90 04/15/20 12:00 04/15/20 14:00 04/15/20 16:00 Temperature 36.2 C L Pulse Rate 69 85 94 Respiratory Rate 24 H 30 H Blood Pressure 135/57 L 152/70 H Pulse Oximetry 95 90
[2020-04-16] VITALS (26 sets, daily range): BP systolic 146–164; BP diastolic 58–88; PULSE 71–107; RESP 24–39; TEMP 35.8–36.9; O2SAT 91–100
[2020-04-16 05:48] LABS: Hematocrit 37.3 % (42.0-52.0); Mean Corpuscular HGB Conc 34.9 g/dl (32-36); Mean Corpuscular Hemoglobin 31.6 pg (26-34); Mean Corpuscular Volume 90.5 fl (80-100); Mean Platelet Volume 10.3 fl (7.4-10.4); Platelet Count Result 335 k/mm3 (150-375); Red Blood Count 4.12 M/mm3 (4.6-6.20); Red Cell Distribution Width 15.4 % (11.5-14.5); White Blood Count 17.5 K/mm3 (4.5-10.0)
[2020-04-16 06:04] LABS: Alanine Aminotransferase 17 U/L (4-50); Albumin Level 3.2 g/dL (3.5-5.1); Alkaline Phosphatase 60 U/L (38-126); Anion Gap 6 mmol/L (8-16); Aspartate Amino Transferase 23 U/L (17-59); Bilirubin,Total 0.7 mg/dL (0.2-1.3); Blood Urea Nitrogen 63 mg/dL (9-20); Calcium 8.9 mg/dL (8.4-10.2); Carbon Dioxide 25 mmol/L (22-30); Chloride 113 mmol/L (98-107); Estimated CRCL calculation 56 ml/min; Estimated Glomerular Filt Rate > 60; Glucose 118 mg/dL (75-110); Magnesium 2.5 mg/dL (1.6-2.3); Sodium 144 mmol/L (137-145)
[2020-04-16] MEDS: REMDESIVIR 100 MG/NS 250 ML 100 MG/250 ML BAG 200 MG IVPB (08:25)
[2020-04-16] MEDS: ENOXAPARIN 40 MG/0.4 ML SYRINGE SUB-Q (08:26)
[2020-04-16] MEDS: ALBUTEROL SULFATE (*SP) INHALER 2 PUFF INHALATION ×4 (08:26→19:28)
--- NOTE | 2020-04-16 11:10 | WPDINTPN ---
Progress Note: A&P Assessment and Plan (1) Acute respiratory failure due to COVID-19: Code(s): U07.1 - COVID-19; J96.00 - Acute respiratory failure, unspecified whether with hypoxia or hypercapnia Status: Acute Assessment and Plan: Acute respiratory failure secondary to COVID-19 pneumonia, SARS-CoV-2 PCR positive CXR worsen 04/12 with increased oxygen requirement hence transferred to ICU Patient is in Airborne, Droplet and Contact Isolation Patient on dexamethasone started 04/11 Remdesivir started 04/12 and course completed 04/12 Convalscent Plasma 1 unit Transfused BNP was elevated hence Lasix 40 mg IV was given for first few days. Rocephin and azithromycin discontinued by ID Culture sent and negative till now Continue to monitor inflammatory markers CXR essentially unchanged and shows stable diffuse bilateral lung infiltrates consistent with ARDS from COVID-19 pneumonia Consulted infectious disease Patient on BiPAP at this time. continue use high-flow nasal cannula as possible during the day and BiPAP at night. (2) Sepsis: Code(s): A41.9 - Sepsis, unspecified organism Status: Acute Assessment and Plan: Rocephin azithromycin which was started empirically in the beginning were discontinued 04/14 as cultures have been negative culture sent and negative till date lactic acid level on presentation was normal (3) Obstructive sleep apnea on CPAP: Code(s): G47.33 - Obstructive sleep apnea (adult) (pediatric); Z99.89 - Dependence on other enabling machines and devices Status: Acute Assessment and Plan: BiPAP at night and p.r.n. (4) Acute metabolic encephalopathy: Code(s): G93.41 - Metabolic encephalopathy Status: Acute Assessment and Plan: appears to be delirium and toxic metabolic encephalopathy Precedex infusion was held yesterday and patient is much more awake today. alert oriented x3 today avoid benzodiazepines and if needed will resume Precedex infusion to allow safe noninvasive mechanical ventilation (5) Chest pain: Code(s): R07.9 - Chest pain, unspecified Status: Acute Assessment and Plan: appears pleuritic and noncardiac in nature from history exam EKG showed sinus tachycardia with no ST elevation Troponin and CK-MB remained essentially flat (6) CHF (congestive heart failure): Code(s): I50.9 - Heart failure, unspecified Status: Acute Assessment and Plan: patient was given Lasix initially on presentation to ICU ECHO 04/13 showed diastolic dysfunction and elevated pulmonary pressure Summary 1. Left ventricular chamber dimension is normal. 2. Left ventricular systolic function is normal, estimated at 65-70%. 3. There is mildly increased left ventricular wall thickness. 4. The left ventricular diastolic function is grade I diastolic dysfunction. 5. Left atrial chamber dimension is mildly enlarged. 6. There is mild tricuspid valve regurgitation. 7. Mild pulmonary hypertension, estimated pulmonary arterial systolic pressure is 37 mmHg. 8. There is mild pulmonic regurgitation. Inferior Vena Cava - Dilated inferior vena cava with >50% collapse upon inspiration consistent with elevated right atrial pressure, 10 mmHg. (7) Delirium: Code(s): R41.0 - Disorientation, unspecified Status: Acute Assessment and Plan: see above (8) Urinary obstruction: Code(s): N13.9 - Obstructive and reflux uropathy, unspecified Status: Acute Assessment and Plan: nurses were unable to place Ross catheter. Urology was consulted and Ross placed 04/14 Additional Plan DVT prophylaxis - Lovenox Stress ulcer prophylaxis - PPI Nutrition - clear liquid diet Code Status - patient is full code as per patient's daughter Ciera Patient is poor IV access. Will get a PICC line Total Critical Care Time - 30 minutes Due to a high probability of clinically
--- NOTE | 2020-04-16 17:05 | PM.IMPN ---
Progress Note: A&P Assessment and Plan (1) Suspected COVID-19 virus infection: Code(s): Z20.828 - Contact with and (suspected) exposure to other viral communicable diseases Status: Inactive Assessment and Plan: Pt is a 80-year-old male here for COVID-19 pneumonia. Pt had a rapid response and was transferredto icu for desaturation. Pt recived plasma on remdesivir and iv dexamethasone now. Seen by ICU doctors today (2) Sepsis: Code(s): A41.9 - Sepsis, unspecified organism Status: Acute Assessment and Plan: ----- on admission the patient had fever, tachycardia and leukocytosis. Secondary to COVID-19 pneumonia. (3) Bilateral pulmonary infiltrates on CXR: Code(s): R91.8 - Other nonspecific abnormal finding of lung field Status: Acute Assessment and Plan: -----COVID + (4) Acute kidney failure: Code(s): N17.9 - Acute kidney failure, unspecified Status: Acute Assessment and Plan: -Wcc [id number], creat is 1 (5) Obstructive sleep apnea on CPAP: Code(s): G47.33 - Obstructive sleep apnea (adult) (pediatric); Z99.89 - Dependence on other enabling machines and devices Status: Acute (6) Benign prostate hyperplasia: Code(s): N40.0 - Benign prostatic hyperplasia without lower urinary tract symptoms Status: Acute Assessment and Plan: -----Continue finasteride. No evidence to suggest urinary retention. (7) Acute metabolic encephalopathy: Code(s): G93.41 - Metabolic encephalopathy Status: Resolved Subjective Date/time seen: 04/16/20 17:05 Interval history: Pt is a 80-year-old male here for COVID-19 pneumonia. Pt had a rapid response and was transferredto icu for desaturation. Pt recived plasma on remdesivir and iv dexamethasone. pt on bipap, is also in hospital. Review of Systems Respiratory: Respiratory: Reports chest congestion and Reports dyspnea Exam Narrative: Exam Narrative: pt is on BIPAP, mild respiratory distress Objective Data Vital Signs Vital Signs: Vital Signs - 24 hr 04/15/20 17:33 04/15/20 18:00 04/15/20 20:00 Temperature 36.8 C Pulse Rate 87 90 93 Respiratory Rate 28 H 33 H Blood Pressure 148/64 H 153/61 H Pulse Oximetry 97 97 04/15/20 21:22 04/15/20 22:00 04/16/20 00:00 Temperature 36.6 C Pulse Rate 97 101 H 91 Respiratory Rate 31 H 32 H 39 H Blood Pressure 180/76 H 160/70 H Pulse Oximetry 96 94 91 04/16/20 00:45 04/16/20 02:00 04/16/20 04:00 Temperature 36.7 C Pulse Rate 89 88 102 H Respiratory Rate 30 H 26 H 32 H Blood Pressure 156/60 H 152/88 H Pulse Oximetry 93 93 92 04/16/20 05:25 04/16/20 06:00 04/16/20 08:00 Temperature 36.2 C L Pulse Rate 101 H 93 107 H Respiratory Rate 30 H 29 H 36 H Blood Pressure 159/67 H 153/65 H Pulse Oximetry 92 91 94 04/16/20 09:24 04/16/20 10:00 04/16/20 11:27 Temperature Pulse Rate 92 86 81 Respiratory Rate 32 H 34 H 28 H Blood Pressure 152/58 H Pulse Oximetry 96 96 97 04/16/20 11:31 04/16/20 12:00 04/16/20 14:00 Temperature 36.9 C Pulse Rate 82 88 96 Respiratory Rate 30 H 34 H 24 H Blood Pressure 160/69 H 147/83 H Pulse Oximetry 97 91 04/16/20 14:57 04/16/20 16:00 04/16/20 16:45 Temperature Pulse Rate 85 78 86 Respiratory Rate 28 H Blood Pressure 146/59 H Pulse Oximetry 93 96 93 04/16/20 16:46 04/16/20 16:49 Temperature Pulse Rate 88 Respiratory Rate 24 H Blood Pressure Pulse Oximetry 93 Intake/Output Intake/Output: Intake & Output 04/13/20 04/14/20 04/15/20 04/16/20 23:59 23:59 23:59 23:59 Intake Total 550 400.97 864 1463 Output Total 2150 1025 1150 1425 [facility] -1600 -624.03 -286 38 Meds/Results Medications: Active Medications Generic Name Dose Route Start Last Admin Trade Name Freq PRN Reason Stop Dose Admin Acetaminophen 650 mg 04/10/20 11:37 04/12/20 01:05 Tylenol Tablet PO 650 mg Q4H PRN Admi
[2020-04-17] VITALS (26 sets, daily range): BP systolic 91–166; BP diastolic 48–88; PULSE 51–91; RESP 18–37; TEMP 35.8–37.1; O2SAT 86–100
[2020-04-17 05:24] LABS: Hematocrit 32.8 % (42.0-52.0); Hemoglobin 11.4 g/dL (14.0-18.0); Mean Corpuscular HGB Conc 34.8 g/dl (32-36); Mean Corpuscular Hemoglobin 31.3 pg (26-34); Mean Corpuscular Volume 90.1 fl (80-100); Mean Platelet Volume 10.4 fl (7.4-10.4); Platelet Count Result 246 k/mm3 (150-375); Red Blood Count 3.64 M/mm3 (4.6-6.20); Red Cell Distribution Width 15.5 % (11.5-14.5); White Blood Count 18.2 K/mm3 (4.5-10.0)
[2020-04-17 06:05] LABS: Alanine Aminotransferase 14 U/L (4-50); Albumin Level 2.8 g/dL (3.5-5.1); Alkaline Phosphatase 52 U/L (38-126); Anion Gap 3 mmol/L (8-16); Aspartate Amino Transferase 21 U/L (17-59); Bilirubin,Total 0.7 mg/dL (0.2-1.3); Blood Urea Nitrogen 51 mg/dL (9-20); CRP 16.6 mg/dL (<1.0); Calcium 8.5 mg/dL (8.4-10.2); Carbon Dioxide 25 mmol/L (22-30); Chloride 114 mmol/L (98-107); Estimated CRCL calculation 59 ml/min; Estimated Glomerular Filt Rate > 60; Glucose 180 mg/dL (75-110); Lactate Dehydrogenase 848 U/L (313-618); Magnesium 2.3 mg/dL (1.6-2.3); Potassium 4.2 mmol/L (3.4-5.0); Sodium 142 mmol/L (137-145)
--- NOTE | 2020-04-17 06:20 | CONS_ITS ---
DATE OF CONSULTATION: 04/14/2020 REASON FOR CONSULTATION: Viral pneumonia. HISTORY OF PRESENT ILLNESS: I was not notified of this consult until 1 hour ago. The patient was admitted to the hospital on April 10 with one-week of fever, dry cough, myalgias, rhinorrhea and headache along with weakness, anorexia. There was alteration in his taste as well as chronic diminished smell sensation. He had exposure to his infected daughter, documented 2 weeks prior to admission. His was also ill and also seen in the emergency room at about the same time. The patient was admitted and given ceftriaxone and azithromycin, testing turned positive and he has been started on remdesivir, dexamethasone and has been given a single unit of convalescent plasma. He is ventilated and sedated and cannot provide any additional history. No events here in the hospital. PRESENT MEDICATIONS: List reviewed. No other immunosuppressants at home, none. No antimicrobials at home. ALLERGIES: PENICILLIN CAUSED SWELLING. HABITS: Quit smoking in 1991, social drinker. PAST MEDICAL HISTORY: Psoriasis, but apparently on no systemic therapy, Parkinson's, ABBY, BPH, appendectomy, left total knee arthroplasty performed 09/20/[address] Mathews. FAMILY HISTORY: Not pertinent to his present illness. SOCIAL HISTORY: No family at the bedside. He is . Lives locally. Retired appliance repair. REVIEW OF SYSTEMS: A 14-point review otherwise negative and per records not obtainable from the patient due to intubated status. PHYSICAL EXAMINATION: GENERAL: This is an elderly male, who appears his actual age. No acute distress. VITAL SIGNS: Temperature on arrival 38.8 and up to 39.0 later in the day and in the last 24 hours afebrile, 62, 22, 115/58, 95% on the ventilator. SKIN: No rashes, warm and dry. A few senile ecchymoses and some venous stasis. Skin changes distal right leg. MUSCULOSKELETAL: Left total knee arthroplasty. He has no evidence of infection and no evidence of active arthritis or joint deformities elsewhere. NODES: No cervical adenopathy. EENT: Conjunctivae are clear. He resists exam. Oral exam is limited by his endotracheal tube, but otherwise inspection is normal. NECK: Excessive soft tissue. No stridor, mass, asymmetry, meningismus. LUNGS: Clear to auscultation and percussion, though with diminished breath sounds. CHEST: No indwelling vascular devices. CARDIAC: Regular rate and rhythm. Soft, S1, S2. No murmurs, gallops, he has no heaves and PMI is not displaced. ABDOMEN: Morbidly obese. No masses, tenderness, or organomegaly. : Ross catheter draining clear yellow urine. No scrotal edema. EXTREMITIES: 1+ ankle edema. NEUROLOGIC: He is lightly sedated. LABORATORY: His COVID assay was reactive. White blood cell count of 15.5 on admission, now 20.9, hemoglobin 11.0, which is stable and platelets are 226. His differential with a left shift. D-dimer elevated. His blood gases from 2 days ago, 7.47, 26, 54. He was on a non-rebreather. His electrolytes normal. BUN 48, creatinine 1.3, glucose 166. His ferritin 697, LDH 733, CRP is 32, BNP 4430, albumin 3.2. Urinalysis scant evidence of infection. Blood cultures, no growth after 4 days incubation is a MRSA screen negative. RADIOLOGY: Chest x-ray with increasing bilateral diffuse infiltrates. Echocardiogram obtained yesterday. No evidence of infection. ASSESSMENT: 1. Fever, cough, hypoxemia due to COVID-19 infection with viral pneumonia. Other causes of his present illness are very unlikely. 2. Respiratory failure due to #1. 3. Benign prostatic hypertrophy. 4. Parkinson's disease. 5. Leukocytosis because of his acute infection along with corticosteroid treatment. RECOMMENDATIO
--- NOTE | 2020-04-17 07:26 | WPDUROPN2 ---
Progress Note: A&P Assessment and Plan (1) Benign prostate hyperplasia: Code(s): N40.0 - Benign prostatic hyperplasia without lower urinary tract symptoms Status: Acute Assessment and Plan: Seems to be tolerating catheter well - urine clear. Subjective Subjective Date/Time Seen: 04/17/20 07:26 BPH/urinary retention Review of Systems Review of Systems: ROS unobtainable: Yes unobtainable due to mental status Exam Urinary Catheter: Urinary Catheter: patent and draining and urine clear Objective Data Vital Signs Vital Signs: Vital Signs - 24 hr 04/16/20 08:00 04/16/20 09:24 04/16/20 10:00 Temperature 97.1 F L Pulse Rate 107 H 92 86 Respiratory Rate 36 H 32 H 34 H Blood Pressure 153/65 H 152/58 H Pulse Oximetry 94 96 96 04/16/20 11:27 04/16/20 11:31 04/16/20 12:00 Temperature 98.4 F Pulse Rate 81 82 88 Respiratory Rate 28 H 30 H 34 H Blood Pressure 160/69 H Pulse Oximetry 97 97 04/16/20 14:00 04/16/20 14:57 04/16/20 16:00 Temperature Pulse Rate 96 85 78 Respiratory Rate 24 H 28 H Blood Pressure 147/83 H 146/59 H Pulse Oximetry 91 93 96 04/16/20 16:45 04/16/20 16:46 04/16/20 16:49 Temperature Pulse Rate 86 88 Respiratory Rate 24 H Blood Pressure Pulse Oximetry 93 93 04/16/20 18:00 04/16/20 19:28 04/16/20 19:32 Temperature Pulse Rate 85 93 86 Respiratory Rate 26 H 29 H 32 H Blood Pressure 146/59 H Pulse Oximetry 91 95 04/16/20 20:00 04/16/20 21:44 04/16/20 22:09 Temperature 96.5 F L Pulse Rate 85 76 81 Respiratory Rate 24 H 32 H Blood Pressure 163/69 H Pulse Oximetry 98 04/16/20 22:14 04/16/20 23:38 04/17/20 00:00 Temperature Pulse Rate 79 71 83 Respiratory Rate 29 H 26 H 25 H Blood Pressure 164/63 H 166/88 H Pulse Oximetry 100 97 91 04/17/20 02:00 04/17/20 02:23 04/17/20 04:00 Temperature Pulse Rate 91 71 52 L Respiratory Rate 18 28 H Blood Pressure 91/68 L Pulse Oximetry 95 98 04/17/20 04:42 04/17/20 06:00 Temperature 96.5 F L Pulse Rate 64 62 Respiratory Rate 24 H 27 H Blood Pressure 141/64 H 122/48 L Pulse Oximetry 93 98 Intake/Output Intake/Output: Intake & Output 04/14/20 04/15/20 04/16/20 04/17/20 23:59 23:59 23:59 23:59 Intake Total 400.97 864 1823 53.6 Output Total 1025 1150 1425 600 Balance -624.03 -286 398 -546.4 Meds/Results Medications: Active Medications Generic Name Dose Route Start Last Admin Trade Name Freq PRN Reason Stop Dose Admin Acetaminophen 650 mg 04/10/20 11:37 04/12/20 01:05 Tylenol Tablet PO 650 mg Q4H PRN Administration Mild Pain (1-3) or Fever Albuterol 2 puff 04/11/20 16:00 04/16/20 19:28 Proventil Hfa INHALATION 2 puff QIDRT JEANIE Administration Dexamethasone Sodium Phosphate 6 mg 04/15/20 09:00 04/16/20 08:25 Decadron 10 Mg/Ml Inj PO 04/21/20 09:01 6 mg DAILY JEANIE Administration Enoxaparin Sodium 40 mg 04/14/20 09:00 04/16/20 08:26 Lovenox SUB-Q 40 mg DAILY JEANIE Administration Dexmedetomidine HCl 400 mcg in 100 mls @ 0 mls/hr 04/14/20 08:00 04/17/20 06:05 Precedex 400 Mcg/100 Ml IV CONT 0 mcg/kg/hr .Q0M JEANIE 0 mls/hr Titration Protocol Ondansetron HCl 4 mg 04/10/20 11:37 Zofran Inj IV PUSH Q4H PRN Nausea Pantoprazole Sodium 40 mg 04/17/20 09:00 Protonix Iv IV PUSH QAM JEANIE Radiology Results: ITS Impressions Chest X-Ray 04/17/20 06:31 IMPRESSION: 1. Stable diffuse lung disease, consistent with pneumonia versus pulmonary edema versus acute respiratory distress syndrome (ARDS). Labs Labs: Laboratory Results - last 24 hr 04/17/20 04/17/20 04/17/20 04:48 04:48 04:48 WBC 18.2 H RBC 3.64 L Hgb 11.4 L Hct 32.8 L MCV 90.1 MCH 31.3 MCHC 34.8 RDW 15.5 H Plt Count 246 MPV 10.4 Sodium 142 Potassium 4.2 Chloride 114 H Carbon Dioxide 25 Anion Gap 3 L BUN 51 H D Creat
--- NOTE | 2020-04-17 08:04 | WPDINFPN2 ---
Progress Note: A&P Assessment and Plan (1) Pneumonia due to COVID-19 virus: Code(s): U07.1 - COVID-19; J12.89 - Other viral pneumonia Status: Acute Assessment and Plan: 1. CoVid viral pneumonia 2. Multifactorial leukocytosis 3. Parkinson's REC Dexamethasone # 5/10, remdesivir completed 04/16. Plasma given. Off antibacterials. Will f/u periodically Subjective Date/time seen: 04/17/20 08:04 Interval history: opens eyes, responds to some requests Exam Narrative: Exam Narrative: mild hypothermia at times, no fever. On PPV Const: General: no acute distress Resp: Effort & Inspection: abnormal respiratory effort Auscultation: rales, no wheezes and diminished lung sounds Cardio: Rate: regular rate Rhythm: regular rhythm Heart sounds: no murmurs and no rubs GI: Inspection: non-distended GI Palp: Yes Soft to palpation, No Tenderness to palpation present (GI) and No Guarding due to palpation present (GI) Urinary Catheter: Urinary Catheter: patent and draining and urine clear Skin: General skin exam: no rashes or lesions noted Objective Data Vital Signs Vital Signs: Vital Signs - 24 hr 04/16/20 09:24 04/16/20 10:00 04/16/20 11:27 Temperature Pulse Rate 92 86 81 Respiratory Rate 32 H 34 H 28 H Blood Pressure 152/58 H Pulse Oximetry 96 96 97 04/16/20 11:31 04/16/20 12:00 04/16/20 14:00 Temperature 36.9 C Pulse Rate 82 88 96 Respiratory Rate 30 H 34 H 24 H Blood Pressure 160/69 H 147/83 H Pulse Oximetry 97 91 04/16/20 14:57 04/16/20 16:00 04/16/20 16:45 Temperature Pulse Rate 85 78 86 Respiratory Rate 28 H Blood Pressure 146/59 H Pulse Oximetry 93 96 93 04/16/20 16:46 04/16/20 16:49 04/16/20 18:00 Temperature Pulse Rate 88 85 Respiratory Rate 24 H 26 H Blood Pressure 146/59 H Pulse Oximetry 93 91 04/16/20 19:28 04/16/20 19:32 04/16/20 20:00 Temperature 35.8 C L Pulse Rate 93 86 85 Respiratory Rate 29 H 32 H 24 H Blood Pressure 163/69 H Pulse Oximetry 95 98 04/16/20 21:44 04/16/20 22:09 04/16/20 22:14 Temperature Pulse Rate 76 81 79 Respiratory Rate 32 H 29 H Blood Pressure 164/63 H Pulse Oximetry 100 04/16/20 23:38 04/17/20 00:00 04/17/20 02:00 Temperature Pulse Rate 71 83 91 Respiratory Rate 26 H 25 H 18 Blood Pressure 166/88 H 91/68 L Pulse Oximetry 97 91 95 04/17/20 02:23 04/17/20 04:00 04/17/20 04:42 Temperature 35.8 C L Pulse Rate 71 52 L 64 Respiratory Rate 28 H 24 H Blood Pressure 141/64 H Pulse Oximetry 98 93 04/17/20 06:00 Temperature Pulse Rate 62 Respiratory Rate 27 H Blood Pressure 122/48 L Pulse Oximetry 98 Intake/Output Intake/Output: Intake & Output 04/14/20 04/15/20 04/16/20 04/17/20 23:59 23:59 23:59 23:59 Intake Total 400.97 864 1823 53.6 Output Total 1025 1150 1425 600 Balance -624.03 -286 398 -546.4 Meds/Results Medications: Active Medications Generic Name Dose Route Start Last Admin Trade Name Freq PRN Reason Stop Dose Admin Acetaminophen 650 mg 04/10/20 11:37 04/12/20 01:05 Tylenol Tablet PO 650 mg Q4H PRN Administration Mild Pain (1-3) or Fever Albuterol 2 puff 04/11/20 16:00 04/16/20 19:28 Proventil Hfa INHALATION 2 puff QIDRT JEANIE Administration Dexamethasone Sodium Phosphate 6 mg 04/15/20 09:00 04/16/20 08:25 Decadron 10 Mg/Ml Inj PO 04/21/20 09:01 6 mg DAILY JEANIE Administration Enoxaparin Sodium 40 mg 04/14/20 09:00 04/16/20 08:26 Lovenox SUB-Q 40 mg DAILY JEANIE Administration Dexmedetomidine HCl 400 mcg in 100 mls @ 0 mls/hr 04/14/20 08:00 04/17/20 06:05 Precedex 400 Mcg/100 Ml IV CONT 0 mcg/kg/hr .Q0M JEANIE 0 mls/hr Titration Protocol Ondansetron HCl 4 mg 04/10/20 11:37 Zofran Inj IV PUSH Q4H PRN Nausea Pantoprazole Sodium 40 mg 04/17/20 09:00 Protonix Iv IV PUSH QAM [facility] Radiology Results: ITS Impressions Chest X-Ray 04/17/20 06:31 IMP
[2020-04-17] MEDS: IPRATROPIUM BR 0.02% INH SOLN 0.5 MG/2.5 ML VIAL (08:41)
[2020-04-17] MEDS: ALBUTEROL SULFATE NEB 2.5 MG/0.5 ML INH (08:41)
[2020-04-17] MEDS: PANTOPRAZOLE SODIUM IV 40 MG VIAL IV PUSH (08:52)
[2020-04-17] MEDS: ENOXAPARIN 40 MG/0.4 ML SYRINGE SUB-Q (08:52)
--- NOTE | 2020-04-17 09:28 | WPDINTPN ---
Progress Note: A&P Assessment and Plan (1) Acute respiratory failure due to COVID-19: Code(s): U07.1 - COVID-19; J96.00 - Acute respiratory failure, unspecified whether with hypoxia or hypercapnia Status: Acute Assessment and Plan: Acute respiratory failure secondary to COVID-19 pneumonia, SARS-CoV-2 PCR positive CXR worsen 04/12 with increased oxygen requirement hence transferred to ICU Patient is on Airborne, Droplet and Contact Isolation Patient on dexamethasone started 04/11 Remdesivir started 04/12 and course completed 04/12 Convalscent Plasma 1 unit Transfused BNP was elevated hence Lasix 40 mg IV was given for first few days. Rocephin and azithromycin discontinued by ID Culture sent and negative till now Continue to monitor inflammatory markers CXR essentially unchanged and shows stable diffuse bilateral lung infiltrates consistent with ARDS from COVID-19 pneumonia Patient on BiPAP at this time. continue use high-flow nasal cannula as possible during the day and BiPAP at night. (2) Sepsis: Code(s): A41.9 - Sepsis, unspecified organism Status: Acute Assessment and Plan: status post Rocephin azithromycin which was started empirically, was discontinued 04/14 as cultures have been negative culture sent and negative till date lactic acid level on presentation was normal (3) Obstructive sleep apnea on CPAP: Code(s): G47.33 - Obstructive sleep apnea (adult) (pediatric); Z99.89 - Dependence on other enabling machines and devices Status: Acute Assessment and Plan: BiPAP at night and p.r.n. (4) Acute metabolic encephalopathy: Code(s): G93.41 - Metabolic encephalopathy Status: Acute Assessment and Plan: appears to be delirium and toxic metabolic encephalopathy Restart Precedex infusion as patient has been delirious and confused follow mental status avoid benzodiazepines and if needed will resume Precedex infusion to allow safe noninvasive mechanical ventilation (5) Chest pain: Code(s): R07.9 - Chest pain, unspecified Status: Acute Assessment and Plan: appears pleuritic and noncardiac in nature from history exam EKG showed sinus tachycardia with no ST elevation Troponin and CK-MB remained essentially flat (6) CHF (congestive heart failure): Code(s): I50.9 - Heart failure, unspecified Status: Acute Assessment and Plan: patient was given Lasix initially on presentation to ICU ECHO 04/13 showed diastolic dysfunction and elevated pulmonary pressure Summary 1. Left ventricular chamber dimension is normal. 2. Left ventricular systolic function is normal, estimated at 65-70%. 3. There is mildly increased left ventricular wall thickness. 4. The left ventricular diastolic function is grade I diastolic dysfunction. 5. Left atrial chamber dimension is mildly enlarged. 6. There is mild tricuspid valve regurgitation. 7. Mild pulmonary hypertension, estimated pulmonary arterial systolic pressure is 37 mmHg. 8. There is mild pulmonic regurgitation. Inferior Vena Cava - Dilated inferior vena cava with >50% collapse upon inspiration consistent with elevated right atrial pressure, 10 mmHg. (7) Delirium: Code(s): R41.0 - Disorientation, unspecified Status: Acute Assessment and Plan: see above (8) Urinary obstruction: Code(s): N13.9 - Obstructive and reflux uropathy, unspecified Status: Acute Assessment and Plan: nurses were unable to place Ross catheter. Urology was consulted and Ross placed 04/14 Additional Plan DVT prophylaxis - Lovenox Stress ulcer prophylaxis - PPI Nutrition - clear liquid diet Code Status - patient is full code as per patient's daughter Ciera Total Critical Care Time - 33 minutes Due to a high probability of clinically significant, life threatening deterioration, the patient required my highest level of preparedn
--- NOTE | 2020-04-17 12:54 | PCDIET ---
Nutrition Follow-Up Complete: Nutrition Diagnosis: Inadequate oral intake related to respiratory failure as evidenced by NPO/clear liquid diet x 3 days. Nutrition Goal: Patient to meet estimated nutritional needs. Goal in progress. MD order to advance to full liquids today. Average intake 04/16/20 was 33% of meals on clear liquid diet, although patient was taking Ensure Clear supplements. Last recorded weight is 92.3 kg which is down from last review. Bowel Motility: No recent BM - discussed during rounds. Labs Reviewed: Hgb (11.4), Hct (32.8), Glu (180), BUN (51), Alb (2.8) Meds Noted: Albuterol, Decadron, Precedex, Atrovent, Protonix Additional Notes: Documented maceration to nose with no other issues reported. Will continue to monitor with same goal. Nutrition Monitoring and Evaluation: Follow up in 3 days.
[2020-04-17] MEDS: ALBUTEROL SULFATE NEB 2.5 MG/0.5 ML INH INHALATION ×2 (14:11→20:21)
[2020-04-17] MEDS: IPRATROPIUM BR 0.02% INH SOLN 0.5 MG/2.5 ML VIAL INHALATION ×2 (14:11→20:22)
--- NOTE | 2020-04-17 16:10 | PM.IMPN ---
Progress Note: A&P Assessment and Plan (1) Suspected COVID-19 virus infection: Code(s): Z20.828 - Contact with and (suspected) exposure to other viral communicable diseases Status: Inactive Assessment and Plan: 04/17/20 16:10 patient is 80-year-old male with COVID-19 pneumonia resulting in respiratory failure on ventilator completed remdesivir on 04/16 on dexamethasone 5/10, today agitated pulling out IVs now on Precedex. off Rocephin and azithromycin as patient has viral pneumonia per ID and does not need antibiotics, afebrile last 48 hours (2) Sepsis: Code(s): A41.9 - Sepsis, unspecified organism Status: Acute Assessment and Plan: ----- on admission the patient had fever, tachycardia and leukocytosis. Secondary to COVID-19 pneumonia. (3) Bilateral pulmonary infiltrates on CXR: Code(s): R91.8 - Other nonspecific abnormal finding of lung field Status: Acute Assessment and Plan: -----COVID + (4) Acute kidney failure: Code(s): N17.9 - Acute kidney failure, unspecified Status: Acute Assessment and Plan: -c , creat is 1 (5) Obstructive sleep apnea on CPAP: Code(s): G47.33 - Obstructive sleep apnea (adult) (pediatric); Z99.89 - Dependence on other enabling machines and devices Status: Acute (6) Benign prostate hyperplasia: Code(s): N40.0 - Benign prostatic hyperplasia without lower urinary tract symptoms Status: Acute Assessment and Plan: -----Continue finasteride. No evidence to suggest urinary retention. (7) Acute metabolic encephalopathy: Code(s): G93.41 - Metabolic encephalopathy Status: Acute Subjective Date/time seen: 04/17/20 16:10 patient is 80-year-old male with COVID-19 pneumonia resulting in respiratory failure on ventilator completed remdesivir on 04/16 on dexamethasone 5/10, today agitated pulling out IVs now on Precedex. off Rocephin and azithromycin as patient has viral pneumonia per ID and does not need antibiotics, afebrile last 48 hours Review of Systems Review of Systems: ROS unobtainable: Yes unobtainable due to endotracheal tube Exam Narrative: Exam Narrative: patient is seen but not examine outside glass door Const: General: comfortable and no acute distress HENMT: General nose exam: Normal nares present Neck: Other: no retraction Resp: Effort & Inspection: normal respiratory effort GI: Other: not distant Skin: General skin exam: normal color Neuro: Other: sedated Extrem: General: normal to inspection Psych: Other: sedated Objective Data Vital Signs Vital Signs: Vital Signs - 24 hr 04/16/20 16:45 04/16/20 16:46 04/16/20 16:49 Temperature Pulse Rate 86 88 Respiratory Rate 24 H Blood Pressure Pulse Oximetry 93 93 04/16/20 18:00 04/16/20 19:28 04/16/20 19:32 Temperature Pulse Rate 85 93 86 Respiratory Rate 26 H 29 H 32 H Blood Pressure 146/59 H Pulse Oximetry 91 95 04/16/20 20:00 04/16/20 21:44 04/16/20 22:09 Temperature 96.5 F L Pulse Rate 85 76 81 Respiratory Rate 24 H 32 H Blood Pressure 163/69 H Pulse Oximetry 98 04/16/20 22:14 04/16/20 23:38 04/17/20 00:00 Temperature Pulse Rate 79 71 83 Respiratory Rate 29 H 26 H 25 H Blood Pressure 164/63 H 166/88 H Pulse Oximetry 100 97 91 04/17/20 02:00 04/17/20 02:23 04/17/20 04:00 Temperature Pulse Rate 91 71 52 L Respiratory Rate 18 28 H Blood Pressure 91/68 L Pulse Oximetry 95 98 04/17/20 04:42 04/17/20 06:00 04/17/20 08:00 Temperature 96.5 F L 98.7 F Pulse Rate 64 62 63 Respiratory Rate 24 H 27 H 27 H Blood Pressure 141/64 H 122/48 L Pulse Oximetry 93 98 92 04/17/20 08:27 04/17/20 08:42 04/17/20 08:50 Temperature Pulse Rate 85 87 80 Respiratory Rate 31 H 27 H 35 H Blood Pressure Pulse Oximetry 92 04/17/20 10:00 04/17/20 11:40 04/17/20 12:00 Temperature 98.3 F Puls
[2020-04-18] VITALS (34 sets, daily range): BP systolic 113–160; BP diastolic 48–70; PULSE 50–84; RESP 13–34; TEMP 34.9–36.6; O2SAT 91–100
[2020-04-18] MEDS: ALBUTEROL SULFATE NEB 2.5 MG/0.5 ML INH INHALATION ×4 (01:59→21:14)
[2020-04-18] MEDS: IPRATROPIUM BR 0.02% INH SOLN 0.5 MG/2.5 ML VIAL INHALATION ×4 (02:00→21:14)
[2020-04-18 05:02] LABS: Basophils Absolute Auto 0.1 K/mm3 (0.0-0.1); Basophils Percent Auto 0.3 % (0.2-1.2); Eosinophils Percent Auto 0.1 % (0-4.4); Hemoglobin 12.2 g/dL (14.0-18.0); Immature Granulocyte Absolute 0.15 K/mm3 (0.00-0.031); Immature Granulocyte Percent A 0.8 % (0-0.5); Lymphocytes Absolute Auto 0.75 K/mm3 (0.9-3.2); Lymphocytes Percent Auto 3.8 % (18.3-44.2); Mean Corpuscular HGB Conc 33.9 g/dl (32-36); Mean Corpuscular Hemoglobin 30.6 pg (26-34); Mean Corpuscular Volume 90.2 fl (80-100); Mean Platelet Volume 10.3 fl (7.4-10.4); Monocytes Absolute Auto 0.5 K/mm3 (0.1-0.6); Monocytes Percent Auto 2.6 % (2.6-8.5); Neutrophils Absolute Auto 18.3 K/mm3 (1.3-6.7); Neutrophils Percent Auto 92.4 % (45.5-73.1); Platelet Count Result 215 k/mm3 (150-375); Red Blood Count 3.99 M/mm3 (4.6-6.20); Red Cell Distribution Width 15.5 % (11.5-14.5); White Blood Count 19.8 K/mm3 (4.5-10.0)
[2020-04-18 05:16] LABS: Alveolar/Arterial O2 Gradient 398.3 mmHg; Carboxyhemoglobin 0.3 % THb (0-2.0); Device BIPAP; Fractional Inspired Oxygen 70 %; HCO3 ABG 23.7 mEq/l (22.0-26.0); Methemoglobin ABG 0.3 %THb (0-1.5); Modified Allen's Test Pass; Oxygen Content ABG 16.5 %vol (16.0-22.0); Oxyhemoglobin 90.3 % THb (90.0-100.0); PCO2 ABG 35.5 mmHg (35.0-45.0); PO2 ABG 62.6 mmHg (80.0-100.0); PO2 FiO2 Ratio Arterial Blood 0.89 %; Reduced Hemoglobin 9.1 %THb (0-5.0); Site Drawn RIGHT RADIAL; pH ABG 7.442 (7.350-7.450)
[2020-04-18 05:16] LABS: Alanine Aminotransferase 14 U/L (4-50); Albumin Level 2.8 g/dL (3.5-5.1); Alkaline Phosphatase 66 U/L (38-126); Anion Gap 5 mmol/L (8-16); Aspartate Amino Transferase 25 U/L (17-59); Bilirubin,Total 0.7 mg/dL (0.2-1.3); Blood Urea Nitrogen 48 mg/dL (9-20); Calcium 8.8 mg/dL (8.4-10.2); Carbon Dioxide 25 mmol/L (22-30); Chloride 115 mmol/L (98-107); Estimated CRCL calculation 54 ml/min; Estimated Glomerular Filt Rate > 60; Glucose 148 mg/dL (75-110); Magnesium 2.5 mg/dL (1.6-2.3); Phosphorus 4.2 mg/dL (2.5-4.5); Potassium 4.4 mmol/L (3.4-5.0); Sodium 145 mmol/L (137-145)
[2020-04-18 05:17] LABS: Expiratory Pressure 5 cmH2O; Inspiratory Pressure 10 cmH2O
[2020-04-18 05:38] LABS: Platelet Estimate Adequate (Adequate)
[2020-04-18 05:39] LABS: Ovalocytes 1+ (NORMAL)
[2020-04-18] MEDS: ENOXAPARIN 40 MG/0.4 ML SYRINGE SUB-Q (09:26)
[2020-04-18] MEDS: PANTOPRAZOLE SODIUM IV 40 MG VIAL IV PUSH (09:26)
--- NOTE | 2020-04-18 09:34 | P.PNINT_ITS ---
Progress Note: A&P Assessment and Plan (1) Acute respiratory failure due to COVID-19: Code(s): U07.1 - COVID-19; J96.00 - Acute respiratory failure, unspecified whether with hypoxia or hypercapnia Status: Acute Assessment and Plan: Acute respiratory failure secondary to COVID-19 pneumonia, SARS-CoV-2 PCR positive CXR worsen 04/12 with increased oxygen requirement hence transferred to ICU Patient is on Airborne, Droplet and Contact Isolation Patient on dexamethasone started 04/11 Remdesivir started 04/12 and course completed 04/12 Convalscent Plasma 1 unit Transfused BNP was elevated hence Lasix 40 mg IV was given for first few days. Rocephin and azithromycin discontinued by ID Culture sent and negative till now Continue to monitor inflammatory markers CXR essentially unchanged and shows stable diffuse bilateral lung infiltrates consistent with ARDS from COVID-19 pneumonia Patient on BiPAP at this time. continue use high-flow nasal cannula as possible during the day and BiPAP at night. (2) Sepsis: Code(s): A41.9 - Sepsis, unspecified organism Status: Acute Assessment and Plan: status post Rocephin azithromycin which was started empirically, was discontinued 04/14 as cultures have been negative culture sent and negative till date lactic acid level on presentation was normal (3) Obstructive sleep apnea on CPAP: Code(s): G47.33 - Obstructive sleep apnea (adult) (pediatric); Z99.89 - Dependence on other enabling machines and devices Status: Acute Assessment and Plan: BiPAP at night and p.r.n. (4) Acute metabolic encephalopathy: Code(s): G93.41 - Metabolic encephalopathy Status: Acute Assessment and Plan: IMPROVING: appears to be delirium and toxic metabolic encephalopathy Restart Precedex infusion as patient has been delirious and confused follow mental status avoid benzodiazepines and if needed will resume Precedex infusion to allow safe noninvasive mechanical ventilation (5) Chest pain: Code(s): R07.9 - Chest pain, unspecified Status: Acute Assessment and Plan: appears pleuritic and noncardiac in nature from history exam EKG showed sinus tachycardia with no ST elevation Troponin and CK-MB remained essentially flat (6) CHF (congestive heart failure): Code(s): I50.9 - Heart failure, unspecified Status: Acute Assessment and Plan: patient was given Lasix initially on presentation to ICU ECHO 04/13 showed diastolic dysfunction and elevated pulmonary pressure Summary 1. Left ventricular chamber dimension is normal. 2. Left ventricular systolic function is normal, estimated at 65-70%. 3. There is mildly increased left ventricular wall thickness. 4. The left ventricular diastolic function is grade I diastolic dysfunction. 5. Left atrial chamber dimension is mildly enlarged. 6. There is mild tricuspid valve regurgitation. 7. Mild pulmonary hypertension, estimated pulmonary arterial systolic pressure is 37 mmHg. 8. There is mild pulmonic regurgitation. Inferior Vena Cava - Dilated inferior vena cava with >50% collapse upon inspiration consistent with elevated right atrial pressure, 10 mmHg. (7) Delirium: Code(s): R41.0 - Disorientation, unspecified Status: Acute Assessment and Plan: see above (8) Urinary obstruction: Code(s): N13.9 - Obstructive and reflux uropathy, unspecified Status: Acute Assessment and Plan: nurses were unable to place Ross catheter. Urology was consulte
--- NOTE | 2020-04-18 10:55 | PCFNICU ---
ICU Rounding Note: Pt current nutrition is full liquid. Nutrition recommendation: Agree with current recommendations Last recorded weight is 93.1 kg. Bowel Motility: last bowel movement reported on 04/18/20 Labs Reviewed: Hgb (12.2) Hct (36) Alb (2.8) BUN (48) Glu (148) Cl (115) Meds Noted: Albuterol, Precedex, Proventil, Lovenox, Protonix, Zofran, Decadron, Atrovent Additional Notes: Nose with macerated area. No documented pressure ulcers. Nurse reports patient is not eating. Patient had 4.2 kg weight loss in last 4 days. May be related to NPO status 04/12/20-/04/16/20. Physician mentioned monitoring/assessing patient's meal consumption today. If patient continues not eating will make recommendation. Following daily in ICU rounds. Assessing/reassessing every 3 days.
--- NOTE | 2020-04-18 11:30 | PCNSR ---
On 04/18/20, the student, Juan Jose Bagley, provided care and completed [facility] documentation on this patient. I have reviewed the student's documentation and agree with the findings.
--- NOTE | 2020-04-18 12:24 | WPDINFPN2 ---
Progress Note: A&P Assessment and Plan (1) Pneumonia due to COVID-19 virus: Code(s): U07.1 - COVID-19; J12.89 - Other viral pneumonia Status: Acute Assessment and Plan: 1. CoVid viral pneumonia, stable status 2. Multifactorial leukocytosis, about the same 3. Parkinson's REC Dexamethasone # 02/08, remdesivir completed 04/16. Plasma given. Off antibacterials. Will f/u periodically Subjective Date/time seen: 04/18/20 12:24 Interval history: on PPV, lightly sedated Exam Narrative: Exam Narrative: afebrile Const: General: no acute distress Neck: Neck: supple Resp: Effort & Inspection: normal respiratory effort Auscultation: clear to auscultation bilaterally and diminished lung sounds Cardio: Rate: regular rate Rhythm: regular rhythm Heart sounds: no murmurs GI: Inspection: distended GI Palp: Yes Soft to palpation and No Tenderness to palpation present (GI) Percussion: Yes normal to percussion Urinary Catheter: Urinary Catheter: patent and draining and urine clear Skin: General skin exam: no rashes or lesions noted Objective Data Vital Signs Vital Signs: Vital Signs - 24 hr 04/17/20 14:00 04/17/20 14:12 04/17/20 14:13 Temperature Pulse Rate 87 76 79 Respiratory Rate 26 H 31 H 35 H Blood Pressure Pulse Oximetry 96 98 04/17/20 14:21 04/17/20 14:22 04/17/20 16:00 Temperature 36.9 C Pulse Rate 89 65 Respiratory Rate 28 H 21 H Blood Pressure Pulse Oximetry 99 97 04/17/20 16:58 04/17/20 18:00 04/17/20 20:00 Temperature 35.8 C L Pulse Rate 77 57 L 56 L Respiratory Rate 23 H 23 H 19 Blood Pressure 142/54 H 124/58 L Pulse Oximetry 100 100 100 04/17/20 20:22 04/17/20 20:39 04/17/20 22:00 Temperature Pulse Rate 56 L 51 L 61 Respiratory Rate 24 H 24 H 18 Blood Pressure 132/56 L Pulse Oximetry 100 100 04/17/20 23:33 04/18/20 00:00 04/18/20 02:00 Temperature 35.9 C L Pulse Rate 51 L 55 L 69 Respiratory Rate 23 H 20 28 H Blood Pressure 131/59 L 160/70 H Pulse Oximetry 100 100 100 04/18/20 02:10 04/18/20 04:00 04/18/20 05:02 Temperature 35.9 C L Pulse Rate 64 50 L 52 L Respiratory Rate 25 H 20 28 H Blood Pressure 143/59 H Pulse Oximetry 99 100 04/18/20 06:00 04/18/20 08:45 04/18/20 08:55 Temperature Pulse Rate 52 L 84 80 Respiratory Rate 20 34 H 30 H Blood Pressure 154/53 H Pulse Oximetry 96 97 Intake/Output Intake/Output: Intake & Output 04/15/20 04/16/20 04/17/20 04/18/20 23:59 23:59 23:59 23:59 Intake Total 864 1823 200.0 100 Output Total 1150 1425 1500 350 Balance -286 398 -1300.0 -250 Meds/Results Medications: Active Medications Generic Name Dose Route Start Last Admin Trade Name Freq PRN Reason Stop Dose Admin Acetaminophen 650 mg 04/10/20 11:37 04/12/20 01:05 Tylenol Tablet PO 650 mg Q4H PRN Administration Mild Pain (1-3) or Fever Albuterol 2.5 mg 04/17/20 14:00 04/18/20 01:59 Albuterol Sulf Neb 2.5mg/0.5ml INHALATION 2.5 mg Q6HRT JEANIE Administration Albuterol 2 puff 04/17/20 09:54 Proventil Hfa INHALATION QIDRT PRN Shortness Of Breath Dexamethasone Sodium Phosphate 6 mg 04/15/20 09:00 04/18/20 09:26 Decadron 10 Mg/Ml Inj PO 04/21/20 09:01 6 mg DAILY JEANIE Administration Enoxaparin Sodium 40 mg 04/14/20 09:00 04/18/20 09:26 Lovenox SUB-Q 40 mg DAILY JEANIE Administration Dexmedetomidine HCl 400 mcg in 100 mls @ 9.73 mls/hr 04/14/20 08:00 04/18/20 07:31 Precedex 400 Mcg/100 Ml IV CONT 0.4 mcg/kg/hr .[id number] JEANIE 9.7 mls/hr Administration Protocol 0.4 MCG/KG/HR Ipratropium Lowber 0.5 mg 04/17/20 14:00 04/18/20 02:00 Atrovent Neb INHALATION 0.5 mg Q6HRT JEANIE Administration Ondansetron HCl 4 mg 04/10/20 11:37 Zofran Inj IV PUSH Q4H PRN Nausea Pantoprazole Sodium 40 mg 04/17/20 09:00 04/18/20 09:26 Protonix Iv IV PUSH 40 mg QAM JEANIE Administration Radiology Resul
--- NOTE | 2020-04-18 13:42 | PM.IMPN ---
Progress Note: A&P Assessment and Plan (1) Suspected COVID-19 virus infection: Code(s): Z20.828 - Contact with and (suspected) exposure to other viral communicable diseases Status: Inactive Assessment and Plan: 04/18/20 13:42 patient is 80-year-old male with COVID-19 pneumonia resulting in respiratory failure was on ventilator, on BIPAP completed remdesivir on 04/16 on dexamethasone 6/10, today agitated pulling out IVs now on Precedex. off Rocephin and azithromycin as patient has viral pneumonia per ID and does not need antibiotics, afebrile last >48 hours, plan is to wean patient off BiPAP and on nasal cannula, once clinically stable will transfer patient out of ICU (2) Sepsis: Code(s): A41.9 - Sepsis, unspecified organism Status: Acute Assessment and Plan: ----- on admission the patient had fever, tachycardia and leukocytosis. Secondary to COVID-19 pneumonia. (3) Bilateral pulmonary infiltrates on CXR: Code(s): R91.8 - Other nonspecific abnormal finding of lung field Status: Acute Assessment and Plan: -----COVID + (4) Acute kidney failure: Code(s): N17.9 - Acute kidney failure, unspecified Status: Acute Assessment and Plan: -Wcc , creat is 1 (5) Obstructive sleep apnea on CPAP: Code(s): G47.33 - Obstructive sleep apnea (adult) (pediatric); Z99.89 - Dependence on other enabling machines and devices Status: Acute (6) Benign prostate hyperplasia: Code(s): N40.0 - Benign prostatic hyperplasia without lower urinary tract symptoms Status: Acute Assessment and Plan: -----Continue finasteride. No evidence to suggest urinary retention. (7) Acute metabolic encephalopathy: Code(s): G93.41 - Metabolic encephalopathy Status: Acute Subjective Date/time seen: 04/18/20 13:42 patient is 80-year-old male with COVID-19 pneumonia resulting in respiratory failure was on ventilator, on BIPAP completed remdesivir on 04/16 on dexamethasone 6/10, today agitated pulling out IVs now on Precedex. off Rocephin and azithromycin as patient has viral pneumonia per ID and does not need antibiotics, afebrile last >48 hours, plan is to wean patient off BiPAP and on nasal cannula, once clinically stable will transfer patient out of ICU Review of Systems Review of Systems: ROS unobtainable: Yes unobtainable due to medical condition Exam Narrative: Exam Narrative: patient is seen but not examine outside glass door Const: General: comfortable and no acute distress HENMT: General nose exam: Normal nares present Neck: Other: no retraction Resp: Effort & Inspection: normal respiratory effort GI: Other: not distant Skin: General skin exam: normal color Neuro: Other: sedated Extrem: General: normal to inspection Psych: Other: sedated Objective Data Vital Signs Vital Signs: Vital Signs - 24 hr 04/17/20 14:00 04/17/20 14:12 04/17/20 14:13 Temperature Pulse Rate 87 76 79 Respiratory Rate 26 H 31 H 35 H Blood Pressure Pulse Oximetry 96 98 04/17/20 14:21 04/17/20 14:22 04/17/20 16:00 Temperature 98.5 F Pulse Rate 89 65 Respiratory Rate 28 H 21 H Blood Pressure Pulse Oximetry 99 97 04/17/20 16:58 04/17/20 18:00 04/17/20 20:00 Temperature 96.5 F L Pulse Rate 77 57 L 56 L Respiratory Rate 23 H 23 H 19 Blood Pressure 142/54 H 124/58 L Pulse Oximetry 100 100 100 04/17/20 20:22 04/17/20 20:39 04/17/20 22:00 Temperature Pulse Rate 56 L 51 L 61 Respiratory Rate 24 H 24 H 18 Blood Pressure 132/56 L Pulse Oximetry 100 100 04/17/20 23:33 04/18/20 00:00 04/18/20 02:00 Temperature 96.6 F L Pulse Rate 51 L 55 L 69 Respiratory Rate 23 H 20 28 H Blood Pressure 131/59 L 160/70 H Pulse Oximetry 100 100 100 04/18/20 02:10 04/18/20 04:00 04/18/20 05:02 Temperature 96.7 F L Pulse Rate 64 50 L 52 L Respiratory Rate 25 H 20 28 H
--- NOTE | 2020-04-18 23:05 | PC.NURSE ---
Patient ripped bipap mask off, patient desat to 79%. Patient now 93% 22 rr. Unable to get temp higher that 94.8 on two thermometers. Patient unable to get temp casas due to urologic placement of catheter in the distant shaft. Patient placed on Trent Hugger, continue to monitor temps and vital signs.
[2020-04-19] VITALS (29 sets, daily range): BP systolic 113–177; BP diastolic 48–82; PULSE 58–99; RESP 16–33; TEMP 35.4–37.1; O2SAT 88–98
--- NOTE | 2020-04-19 01:06 | PC.NURSE ---
Trent cody off, patient temp 97.8. Continue to monitor.
[2020-04-19] MEDS: IPRATROPIUM BR 0.02% INH SOLN 0.5 MG/2.5 ML VIAL INHALATION ×4 (02:42→20:15)
[2020-04-19] MEDS: ALBUTEROL SULFATE NEB 2.5 MG/0.5 ML INH INHALATION ×4 (02:42→20:15)
[2020-04-19 04:00] LABS: Basophils Percent Auto 0.1 % (0.2-1.2); Eosinophils Percent Auto 0.1 % (0-4.4); Hematocrit 34.9 % (42.0-52.0); Hemoglobin 11.9 g/dL (14.0-18.0); Immature Granulocyte Absolute 0.14 K/mm3 (0.00-0.031); Immature Granulocyte Percent A 0.8 % (0-0.5); Lymphocytes Absolute Auto 0.59 K/mm3 (0.9-3.2); Lymphocytes Percent Auto 3.6 % (18.3-44.2); Mean Corpuscular HGB Conc 34.1 g/dl (32-36); Mean Corpuscular Hemoglobin 30.4 pg (26-34); Mean Platelet Volume 10.8 fl (7.4-10.4); Monocytes Absolute Auto 0.4 K/mm3 (0.1-0.6); Monocytes Percent Auto 2.7 % (2.6-8.5); Neutrophils Absolute Auto 15.3 K/mm3 (1.3-6.7); Neutrophils Percent Auto 92.7 % (45.5-73.1); Platelet Count Result 212 k/mm3 (150-375); Red Blood Count 3.92 M/mm3 (4.6-6.20); Red Cell Distribution Width 15.4 % (11.5-14.5); White Blood Count 16.5 K/mm3 (4.5-10.0)
--- NOTE | 2020-04-19 04:15 | PC.NURSE ---
Patient tolerated Bipap up until now. Placed back on High flow therapy. 60L 71%.
[2020-04-19 06:36] LABS: Alanine Aminotransferase 13 U/L (4-50); Albumin Level 2.7 g/dL (3.5-5.1); Alkaline Phosphatase 68 U/L (38-126); Anion Gap 6 mmol/L (8-16); Aspartate Amino Transferase 24 U/L (17-59); Bilirubin,Total 0.5 mg/dL (0.2-1.3); Blood Urea Nitrogen 55 mg/dL (9-20); Calcium 8.7 mg/dL (8.4-10.2); Carbon Dioxide 24 mmol/L (22-30); Chloride 114 mmol/L (98-107); Estimated CRCL calculation 45 ml/min; Estimated Glomerular Filt Rate 58; Glucose 135 mg/dL (75-110); Magnesium 2.6 mg/dL (1.6-2.3); Phosphorus 4.1 mg/dL (2.5-4.5); Potassium 4.1 mmol/L (3.4-5.0); Sodium 144 mmol/L (137-145)
--- NOTE | 2020-04-19 08:13 | P.CDI_ITS ---
CDI Query Clarification Request Dr Hamilton You have documented CHF and ECHO showed diastolic dysfunction and elevated pulmonary pressure and patient was given Lasix . Please further specify type and acuity of CHF: * Systolic *Acute * Diastolic * Chronic * Both systolic and diastolic *Acute on chronic * Unable to determine *Unable to determine <Christine Fitzpatrick RN - Last Filed: 04/19/20 08:16>
--- NOTE | 2020-04-19 08:13 | WPDCDIQUERY2 ---
CDI Query Clarification Request Dr Hamiltno You have documented CHF and ECHO showed diastolic dysfunction and elevated pulmonary pressure and patient was given Lasix . Please further specify type and acuity of CHF: Systolic *Acute Diastolic * Chronic Both systolic and diastolic *Acute on chronic Unable to determine *Unable to determine <Christine Fitzpatrick RN - Last Filed: 04/19/20 08:16>
[2020-04-19] MEDS: PANTOPRAZOLE SODIUM IV 40 MG VIAL IV PUSH (09:25)
[2020-04-19] MEDS: ENOXAPARIN 40 MG/0.4 ML SYRINGE SUB-Q (09:25)
--- NOTE | 2020-04-19 10:49 | PCDIET ---
ICU Rounding Note: Patient on full liquid diet, but with minimal intake. Requesting a lot of water, per RN. MD ordered to add high protein, high calorie supplements. RN to encourage supplement intake. No plan for nutrition support at this time. Recommend Ensure Enlive (350kcal, 20g protein) TID and Thrive Ice Cream (300kcal, 9g protein) BID. If fully accepted, supplements would meet nutritional needs. Last recorded weight is 94.4kg which is increased from last review. I/O slightly positive yesterday. Bowel Motility: Last BM on 04/18/20. Labs Reviewed: Hgb (11.9), Hct (34.9), Glu (135), BUN (55), Alb (2.7), Mg (2.6), Cl (114) Meds Noted: Albuterol, Decadron, Precedex, Atrovent, Protonix Additional Notes: Macerated nose. No other skin breakdown reported. MD aware that intake limited x 8 days, but no good options at this time. Patient pulled PICC line earlier this week. May need to consider PPN for some nutrition if unable to improve oral intakes or feed enterally. Following daily in ICU rounds. Assessing/reassessing every 3 days.
[2020-04-19] MEDS: LIDOCAINE HCL 1% PF INJ 5 ML VIAL INFILTRATE (11:55)
--- NOTE | 2020-04-19 13:14 | WPDINTPN ---
Progress Note: A&P Assessment and Plan (1) Acute respiratory failure due to COVID-19: Code(s): U07.1 - COVID-19; J96.00 - Acute respiratory failure, unspecified whether with hypoxia or hypercapnia Status: Acute Assessment and Plan: Acute respiratory failure secondary to COVID-19 pneumonia, SARS-CoV-2 PCR positive CXR worsen 04/12 with increased oxygen requirement hence transferred to ICU Patient is on Airborne, Droplet and Contact Isolation Patient on dexamethasone started 04/11 Remdesivir started 04/12 and course completed 04/12 Convalscent Plasma 1 unit Transfused BNP was elevated hence Lasix 40 mg IV was given for first few days. Rocephin and azithromycin discontinued by ID Culture sent and negative till now Continue to monitor inflammatory markers CXR essentially unchanged and shows stable diffuse bilateral lung infiltrates consistent with ARDS from COVID-19 pneumonia Continues to maintain his oxygenation with AirVol during the day and BiPAP support at night (2) Sepsis: Code(s): A41.9 - Sepsis, unspecified organism Status: Acute Assessment and Plan: status post Rocephin azithromycin which was started empirically, was discontinued 04/14 as cultures have been negative culture sent and negative till date lactic acid level on presentation was normal (3) Obstructive sleep apnea on CPAP: Code(s): G47.33 - Obstructive sleep apnea (adult) (pediatric); Z99.89 - Dependence on other enabling machines and devices Status: Acute Assessment and Plan: BiPAP at night and p.r.n. (4) Acute metabolic encephalopathy: Code(s): G93.41 - Metabolic encephalopathy Status: Acute Assessment and Plan: IMPROVING: appears to be delirium and toxic metabolic encephalopathy continue Precedex infusion. follow mental status avoid benzodiazepines and if needed will resume Precedex infusion to allow safe noninvasive mechanical ventilation (5) Chest pain: Code(s): R07.9 - Chest pain, unspecified Status: Acute Assessment and Plan: Resolved - pleuritic and noncardiac in nature from history exam - EKG showed sinus tachycardia with no ST elevation - Troponin and CK-MB remained essentially flat (6) CHF (congestive heart failure): Code(s): I50.9 - Heart failure, unspecified Status: Acute Assessment and Plan: patient was given Lasix initially on presentation to ICU ECHO 04/13 showed diastolic dysfunction and elevated pulmonary pressure Summary 1. Left ventricular chamber dimension is normal. 2. Left ventricular systolic function is normal, estimated at 65-70%. 3. There is mildly increased left ventricular wall thickness. 4. The left ventricular diastolic function is grade I diastolic dysfunction. 5. Left atrial chamber dimension is mildly enlarged. 6. There is mild tricuspid valve regurgitation. 7. Mild pulmonary hypertension, estimated pulmonary arterial systolic pressure is 37 mmHg. 8. There is mild pulmonic regurgitation. Inferior Vena Cava - Dilated inferior vena cava with >50% collapse upon inspiration consistent with elevated right atrial pressure, 10 mmHg. (7) Delirium: Code(s): R41.0 - Disorientation, unspecified Status: Acute Assessment and Plan: see above (8) Urinary obstruction: Code(s): N13.9 - Obstructive and reflux uropathy, unspecified Status: Acute Assessment and Plan: nurses were unable to place Ross catheter. Urology was consulted and Ross placed 04/14 Additional Plan DVT prophylaxis - Lovenox Stress ulcer prophylaxis - PPI Nutrition - clear liquid diet Code Status - patient is full code as per patient's daughter iCera PICC line was placed on left side today for blood draws as patient is a poor IV access and difficult stick. PICC nurse noticed possible DVT in right arm. Dopplers ordered for both upper and lower extremities. Patient is o
--- NOTE | 2020-04-19 14:37 | PM.IMPN ---
Progress Note: A&P Assessment and Plan (1) Suspected COVID-19 virus infection: Code(s): Z20.828 - Contact with and (suspected) exposure to other viral communicable diseases Status: Inactive Assessment and Plan: Pt is a 80-year-old male here for COVID-19 pneumonia. Pt had a rapid response and was transferredto icu for desaturation. Pt recived plasma on remdesivir and iv dexamethasone now. Seen by ICU doctors today 04/19/20 14:37 patient is 80-year-old male with COVID-19 pneumonia resulting in respiratory failure was on ventilator, and extubated, now on BIPAP at night and hgih flow O2 during day, completed remdesivir on 04/16 on dexamethasone 03/10, on and off patient gets agitated pulling out IVs, on PRN Precedex. off Rocephin and azithromycin as patient has viral pneumonia per ID and does not need antibiotics, afebrile last >72 hours, plan is to wean patient off BiPAP and on nasal cannula, once clinically stable will transfer patient out of ICU, discussed with the industrial registered nurse today, plan is to continue monitor, appreciate industrial registered nurse (2) Sepsis: Code(s): A41.9 - Sepsis, unspecified organism Status: Acute Assessment and Plan: ----- on admission the patient had fever, tachycardia and leukocytosis. Secondary to COVID-19 pneumonia. (3) Bilateral pulmonary infiltrates on CXR: Code(s): R91.8 - Other nonspecific abnormal finding of lung field Status: Acute Assessment and Plan: -----COVID + (4) Acute kidney failure: Code(s): N17.9 - Acute kidney failure, unspecified Status: Acute Assessment and Plan: -[facility] , creat is 1 (5) Obstructive sleep apnea on CPAP: Code(s): G47.33 - Obstructive sleep apnea (adult) (pediatric); Z99.89 - Dependence on other enabling machines and devices Status: Acute (6) Benign prostate hyperplasia: Code(s): N40.0 - Benign prostatic hyperplasia without lower urinary tract symptoms Status: Acute Assessment and Plan: -----Continue finasteride. No evidence to suggest urinary retention. (7) Acute metabolic encephalopathy: Code(s): G93.41 - Metabolic encephalopathy Status: Resolved Additional Plan Please add the additional diagnoses ([employer] will not let me had any at this time) Acute respiratory failure with hypoxia-continue supplemental oxygen COVID infection-see above Chest pain-EKG reviewed without ST changes, draw initial troponin 55 min of critical care time utilized. Spoke with Dr. Kent SP, about plan of care Subjective Date/time seen: 04/19/20 14:37 patient is 80-year-old male with COVID-19 pneumonia resulting in respiratory failure was on ventilator, and extubated, now on BIPAP at night and hgih flow O2 during day, completed remdesivir on 04/16 on dexamethasone 03/10, on and off patient gets agitated pulling out IVs, on PRN Precedex. off Rocephin and azithromycin as patient has viral pneumonia per ID and does not need antibiotics, afebrile last >72 hours, plan is to wean patient off BiPAP and on nasal cannula, once clinically stable will transfer patient out of ICU, discussed with the industrial registered nurse today, plan is to continue monitor, appreciate industrial registered nurse Review of Systems Review of Systems: ROS unobtainable: Yes unobtainable due to medical condition Exam Narrative: Exam Narrative: patient is seen but not examine outside glass door Const: General: comfortable and no acute distress HENMT: General nose exam: Normal nares present Neck: Other: no retraction Resp: Effort & Inspection: normal respiratory effort GI: Other: not distant Skin: General skin exam: normal color Neuro: Other: sedated Extrem: General: normal to inspection Psych: Other: sedated Objective Data Vital Signs Vital Signs: Vital Signs - 24 hr 04/18/20 14:45 04/18/20 16:00 04/18/20 18:00 Temperature 97.9 F Pulse Rate 74 66 60 Respiratory Rate 26
[2020-04-19] MEDS: CENTRAL LINE FLUSH 10 ML IV PUSH ×2 (16:33→23:40)
[2020-04-20] VITALS (31 sets, daily range): BP systolic 97–141; BP diastolic 45–72; PULSE 60–100; RESP 16–35; TEMP 35.8–36.6; O2SAT 85–98
[2020-04-20] MEDS: ALBUTEROL SULFATE NEB 2.5 MG/0.5 ML INH INHALATION ×4 (02:39→20:41)
[2020-04-20] MEDS: IPRATROPIUM BR 0.02% INH SOLN 0.5 MG/2.5 ML VIAL INHALATION ×4 (02:39→20:41)
[2020-04-20 04:39] LABS: Hematocrit 34.1 % (42.0-52.0); Hemoglobin 11.7 g/dL (14.0-18.0); Mean Corpuscular HGB Conc 34.3 g/dl (32-36); Mean Corpuscular Hemoglobin 30.7 pg (26-34); Mean Corpuscular Volume 89.5 fl (80-100); Mean Platelet Volume 10.9 fl (7.4-10.4); Platelet Count Result 192 k/mm3 (150-375); Red Blood Count 3.81 M/mm3 (4.6-6.20); Red Cell Distribution Width 15.3 % (11.5-14.5); White Blood Count 16.8 K/mm3 (4.5-10.0)
[2020-04-20 04:53] LABS: Alanine Aminotransferase 12 U/L (4-50); Albumin Level 2.6 g/dL (3.5-5.1); Alkaline Phosphatase 63 U/L (38-126); Anion Gap 5 mmol/L (8-16); Aspartate Amino Transferase 18 U/L (17-59); Bilirubin,Total 0.6 mg/dL (0.2-1.3); Blood Urea Nitrogen 64 mg/dL (9-20); Calcium 8.6 mg/dL (8.4-10.2); Carbon Dioxide 25 mmol/L (22-30); Chloride 113 mmol/L (98-107); Estimated CRCL calculation 45 ml/min; Estimated Glomerular Filt Rate 58; Glucose 130 mg/dL (75-110); Magnesium 2.5 mg/dL (1.6-2.3); Potassium 4.1 mmol/L (3.4-5.0); Sodium 143 mmol/L (137-145)
[2020-04-20] MEDS: CENTRAL LINE FLUSH 10 ML IV PUSH ×3 (05:31→20:54)
[2020-04-20] MEDS: PANTOPRAZOLE SODIUM IV 40 MG VIAL IV PUSH (09:02)
[2020-04-20] MEDS: ENOXAPARIN 40 MG/0.4 ML SYRINGE SUB-Q (09:02)
--- NOTE | 2020-04-20 11:02 | PCDIET ---
Nutrition Follow-Up Complete: Nutrition Diagnosis: Inadequate oral intake related to respiratory failure as evidenced by NPO/clear liquid diet x 3 days. Nutrition Goal: Patient to meet estimated nutritional needs. Goal in progress. Patient continues to have limited intake, but has been taking most supplements when encouraged by nursing. Recommend continuing Ensure Enlive (350kcal, 20g protein) TID and Frozen Nutritional Treat, formerly Thrive Ice Cream (300kcal, 9g protein) BID. Diet remains full liquid which is appropriate. Last recorded weight is 93 kg which is down from last review. Bowel Motility: Last documented BM on 04/18/20. Labs Reviewed: Hgb (11.7), Hct (34.1), Glu (130), BUN (64), Alb (2.6) Meds Noted: Albuterol, Zofran, Decadron, Protonix, Precedex, Atrovent Additional Notes: Nose with breakdown from bipap. No other issues reported. Will continue to monitor with same goal. Nutrition Monitoring and Evaluation: Follow up in 3 days.
--- NOTE | 2020-04-20 13:45 | WPDINTPN ---
Progress Note: A&P Assessment and Plan (1) Acute respiratory failure due to COVID-19: Code(s): U07.1 - COVID-19; J96.00 - Acute respiratory failure, unspecified whether with hypoxia or hypercapnia Status: Acute Assessment and Plan: Acute respiratory failure secondary to COVID-19 pneumonia, SARS-CoV-2 PCR positive CXR worsen 04/12 with increased oxygen requirement hence transferred to ICU Patient is on Airborne, Droplet and Contact Isolation Patient on dexamethasone started 04/11 Remdesivir started 04/12 and course completed 04/12 Convalscent Plasma 1 unit Transfused BNP was elevated hence Lasix 40 mg IV was given for first few days. Rocephin and azithromycin discontinued by ID Culture sent and negative till now Continue to monitor inflammatory markers CXR essentially unchanged and shows stable diffuse bilateral lung infiltrates consistent with ARDS from COVID-19 pneumonia Continues to maintain his oxygenation with AirVol during the day and BiPAP support at night. he is requiring 60-70% FiO2 at this time (2) Sepsis: Code(s): A41.9 - Sepsis, unspecified organism Status: Acute Assessment and Plan: status post Rocephin azithromycin which was started empirically, was discontinued 04/14 as cultures have been negative culture sent and negative till date lactic acid level on presentation was normal (3) Obstructive sleep apnea on CPAP: Code(s): G47.33 - Obstructive sleep apnea (adult) (pediatric); Z99.89 - Dependence on other enabling machines and devices Status: Acute Assessment and Plan: BiPAP at night and p.r.n. (4) Acute metabolic encephalopathy: Code(s): G93.41 - Metabolic encephalopathy Status: Resolved Assessment and Plan: IMPROVING: appears to be delirium and toxic metabolic encephalopathy continue Precedex infusion. follow mental status avoid benzodiazepines and if needed will resume Precedex infusion to allow safe noninvasive mechanical ventilation (5) Chest pain: Code(s): R07.9 - Chest pain, unspecified Status: Acute Assessment and Plan: Resolved - pleuritic and noncardiac in nature from history exam - EKG showed sinus tachycardia with no ST elevation - Troponin and CK-MB remained essentially flat (6) CHF (congestive heart failure): Code(s): I50.9 - Heart failure, unspecified Status: Acute Assessment and Plan: patient was given Lasix initially on presentation to ICU ECHO 04/13 showed diastolic dysfunction and elevated pulmonary pressure Summary 1. Left ventricular chamber dimension is normal. 2. Left ventricular systolic function is normal, estimated at 65-70%. 3. There is mildly increased left ventricular wall thickness. 4. The left ventricular diastolic function is grade I diastolic dysfunction. 5. Left atrial chamber dimension is mildly enlarged. 6. There is mild tricuspid valve regurgitation. 7. Mild pulmonary hypertension, estimated pulmonary arterial systolic pressure is 37 mmHg. 8. There is mild pulmonic regurgitation. Inferior Vena Cava - Dilated inferior vena cava with >50% collapse upon inspiration consistent with elevated right atrial pressure, 10 mmHg. (7) Delirium: Code(s): R41.0 - Disorientation, unspecified Status: Acute Assessment and Plan: see above (8) Urinary obstruction: Code(s): N13.9 - Obstructive and reflux uropathy, unspecified Status: Acute Assessment and Plan: nurses were unable to place Ross catheter. Urology was consulted and Ross placed 04/14 Additional Plan DVT prophylaxis - Lovenox Stress ulcer prophylaxis - PPI Nutrition - clear liquid diet with supplement Code Status - patient is full code as per patient's daughter Ciera PICC line was placed on left side 04/29 for blood draws as patient is a poor IV access and difficult stick. PICC nurse noticed possible DVT in right arm. Dop
--- NOTE | 2020-04-20 14:26 | PM.IMPN ---
Progress Note: A&P Assessment and Plan (1) Suspected COVID-19 virus infection: Code(s): Z20.828 - Contact with and (suspected) exposure to other viral communicable diseases Status: Inactive Assessment and Plan: Pt is a 80-year-old male here for COVID-19 pneumonia. Pt had a rapid response and was transferredto icu for desaturation. Pt recived plasma on remdesivir and iv dexamethasone now. Seen by ICU doctors today 04/20/20 14:26 patient is 80-year-old male with COVID-19 pneumonia resulting in respiratory failure was on ventilator, and extubated, now on BIPAP at night and hgih flow O2 during day, completed remdesivir on 04/16 on dexamethasone 04/10, on and off patient gets agitated pulling out IVs, on PRN Precedex. off Rocephin and azithromycin as patient has viral pneumonia per ID and does not need antibiotics, afebrile last >72 hours, plan is to wean patient off BiPAP and on nasal cannula, once clinically stable will transfer patient out of ICU, however is x-ray shows persistent infiltrate most likely secondary to ARDS and COVID-19 pneumonia, on high-flow AirVol during the day and BiPAP at night requiring FiO2 60-70% will continue present management patient is seen by information security specialist appreciate and further recommendation to follow (2) Sepsis: Code(s): A41.9 - Sepsis, unspecified organism Status: Acute Assessment and Plan: ----- on admission the patient had fever, tachycardia and leukocytosis. Secondary to COVID-19 pneumonia. (3) Bilateral pulmonary infiltrates on CXR: Code(s): R91.8 - Other nonspecific abnormal finding of lung field Status: Acute Assessment and Plan: -----COVID + (4) Acute kidney failure: Code(s): N17.9 - Acute kidney failure, unspecified Status: Acute Assessment and Plan: -c , creat is 1 (5) Obstructive sleep apnea on CPAP: Code(s): G47.33 - Obstructive sleep apnea (adult) (pediatric); Z99.89 - Dependence on other enabling machines and devices Status: Acute (6) Benign prostate hyperplasia: Code(s): N40.0 - Benign prostatic hyperplasia without lower urinary tract symptoms Status: Acute Assessment and Plan: -----Continue finasteride. No evidence to suggest urinary retention. (7) Acute metabolic encephalopathy: Code(s): G93.41 - Metabolic encephalopathy Status: Resolved Subjective Date/time seen: 04/20/20 14:26 patient is 80-year-old male with COVID-19 pneumonia resulting in respiratory failure was on ventilator, and extubated, now on BIPAP at night and hgih flow O2 during day, completed remdesivir on 04/16 on dexamethasone 04/10, on and off patient gets agitated pulling out IVs, on PRN Precedex. off Rocephin and azithromycin as patient has viral pneumonia per ID and does not need antibiotics, afebrile last >72 hours, plan is to wean patient off BiPAP and on nasal cannula, once clinically stable will transfer patient out of ICU, however is x-ray shows persistent infiltrate most likely secondary to ARDS and COVID-19 pneumonia, on high-flow AirVol during the day and BiPAP at night requiring FiO2 60-70% will continue present management patient is seen by information security specialist appreciate and further recommendation to follow Review of Systems Review of Systems: ROS unobtainable: Yes unobtainable due to medical condition Exam Narrative: Exam Narrative: patient is seen but not examine outside glass door Const: General: comfortable and no acute distress HENMT: General nose exam: Normal nares present Neck: Other: no retraction Resp: Effort & Inspection: normal respiratory effort GI: Other: not distant Skin: General skin exam: normal color Neuro: Other: sedated Extrem: General: normal to inspection Psych: Other: sedated Objective Data Vital Signs Vital Signs: Vital Signs - 24 hr 04/19/20 16:00 04/19/20 18:00 04/19/20 20:00 Temperature 98.3 F 97
[2020-04-21] VITALS (23 sets, daily range): BP systolic 109–144; BP diastolic 49–71; PULSE 56–95; RESP 16–28; TEMP 36.2–37.1; O2SAT 87–98
[2020-04-21] MEDS: IPRATROPIUM BR 0.02% INH SOLN 0.5 MG/2.5 ML VIAL INHALATION ×4 (02:34→20:10)
[2020-04-21] MEDS: ALBUTEROL SULFATE NEB 2.5 MG/0.5 ML INH INHALATION ×4 (02:35→20:10)
[2020-04-21] MEDS: CENTRAL LINE FLUSH 10 ML IV PUSH ×3 (04:59→20:56)
[2020-04-21 05:03] LABS: Hematocrit 36.2 % (42.0-52.0); Hemoglobin 12.3 g/dL (14.0-18.0); Mean Corpuscular Hemoglobin 30.3 pg (26-34); Mean Corpuscular Volume 89.2 fl (80-100); Mean Platelet Volume 11.2 fl (7.4-10.4); Platelet Count Result 192 k/mm3 (150-375); Red Blood Count 4.06 M/mm3 (4.6-6.20); Red Cell Distribution Width 15.3 % (11.5-14.5); White Blood Count 24.5 K/mm3 (4.5-10.0)
[2020-04-21 05:16] LABS: Alanine Aminotransferase 12 U/L (4-50); Albumin Level 2.6 g/dL (3.5-5.1); Alkaline Phosphatase 70 U/L (38-126); Anion Gap 6 mmol/L (8-16); Aspartate Amino Transferase 20 U/L (17-59); Bilirubin,Total 0.7 mg/dL (0.2-1.3); Blood Urea Nitrogen 66 mg/dL (9-20); CRP 7.2 mg/dL (<1.0); Calcium 8.7 mg/dL (8.4-10.2); Carbon Dioxide 24 mmol/L (22-30); Chloride 114 mmol/L (98-107); Estimated CRCL calculation 45 ml/min; Estimated Glomerular Filt Rate 58; Glucose 109 mg/dL (75-110); Lactate Dehydrogenase 869 U/L (313-618); Magnesium 2.4 mg/dL (1.6-2.3); Potassium 3.9 mmol/L (3.4-5.0); Sodium 144 mmol/L (137-145)
[2020-04-21] MEDS: PANTOPRAZOLE SODIUM IV 40 MG VIAL IV PUSH (08:54)
[2020-04-21] MEDS: ENOXAPARIN 40 MG/0.4 ML SYRINGE SUB-Q ×2 (08:55→20:55)
--- NOTE | 2020-04-21 11:33 | WPDINTPN ---
Progress Note: A&P Assessment and Plan (1) Acute respiratory failure due to COVID-19: Code(s): U07.1 - COVID-19; J96.00 - Acute respiratory failure, unspecified whether with hypoxia or hypercapnia Status: Acute Assessment and Plan: Acute respiratory failure secondary to COVID-19 pneumonia, SARS-CoV-2 PCR positive CXR worsen 04/12 with increased oxygen requirement hence transferred to ICU Patient is on Airborne, Droplet and Contact Isolation Patient on dexamethasone started 04/11 and completed a 10 day course Remdesivir started 04/12 and course completed 04/12 Convalscent Plasma 1 unit Transfused BNP was elevated hence Lasix 40 mg IV was given for first few days. Rocephin and azithromycin discontinued by ID Lovenox subcu 40 mg q.12 hours due to markedly elevated D-dimer level Culture sent and negative till now Continue to monitor inflammatory markers which have not improved significantly with this patient CXR essentially unchanged and shows stable diffuse bilateral lung infiltrates consistent with ARDS from COVID-19 pneumonia Continues to maintain his oxygenation with AirVo overnight which I will continue. Decrease FiO2 to 70% from 75. I will keep BiPAP on p.r.n. if needed. (2) Sepsis: Code(s): A41.9 - Sepsis, unspecified organism Status: Acute Assessment and Plan: status post Rocephin azithromycin which was started empirically, was discontinued 04/14 as cultures have been negative culture sent and negative till date lactic acid level on presentation was normal (3) Obstructive sleep apnea on CPAP: Code(s): G47.33 - Obstructive sleep apnea (adult) (pediatric); Z99.89 - Dependence on other enabling machines and devices Status: Acute Assessment and Plan: BiPAP at night and p.r.n. (4) Acute metabolic encephalopathy: Code(s): G93.41 - Metabolic encephalopathy Status: Resolved Assessment and Plan: IMPROVING: appears to be delirium and toxic metabolic encephalopathy. patient gets agitated and confused. His PICC line. Due to him being in isolation he is at risk of pulling oxygen, BiPAP mask or IV lines continue Precedex infusion But requested nurse to wean down the does follow mental status avoid benzodiazepines and if needed will resume Precedex infusion to allow safe noninvasive mechanical ventilation (5) Chest pain: Code(s): R07.9 - Chest pain, unspecified Status: Acute Assessment and Plan: Resolved - pleuritic and noncardiac in nature from history exam - EKG showed sinus tachycardia with no ST elevation - Troponin and CK-MB remained essentially flat (6) CHF (congestive heart failure): Code(s): I50.9 - Heart failure, unspecified Status: Acute Assessment and Plan: patient was given Lasix initially on presentation to ICU ECHO 04/13 showed diastolic dysfunction and elevated pulmonary pressure Summary 1. Left ventricular chamber dimension is normal. 2. Left ventricular systolic function is normal, estimated at 65-70%. 3. There is mildly increased left ventricular wall thickness. 4. The left ventricular diastolic function is grade I diastolic dysfunction. 5. Left atrial chamber dimension is mildly enlarged. 6. There is mild tricuspid valve regurgitation. 7. Mild pulmonary hypertension, estimated pulmonary arterial systolic pressure is 37 mmHg. 8. There is mild pulmonic regurgitation. Inferior Vena Cava - Dilated inferior vena cava with >50% collapse upon inspiration consistent with elevated right atrial pressure, 10 mmHg. (7) Delirium: Code(s): R41.0 - Disorientation, unspecified Status: Acute Assessment and Plan: see above (8) Urinary obstruction: Code(s): N13.9 - Obstructive and reflux uropathy, unspecified Status: Acute Assessment and Plan: nurses were unable to place Ross catheter. Urology was consulted and Ross placed 04/14 A
--- NOTE | 2020-04-21 13:02 | PCDIET ---
Nutrition Follow-Up Complete: Nutrition Diagnosis: Inadequate oral intake related to respiratory failure as evidenced by NPO/clear liquid diet x 3 days. Nutrition Goal: Patient to meet estimated nutritional needs. Goal in progress. Patient consumed 50% of breakfast and lunch today. RN reports patient is taking supplements and small amounts of items on tray. Recommend continuing Ensure Enlive TID and Thrive Ice Cream (Frozen Nutrition Treat) BID while on full liquid diet. Nursing will continue to encourage fluid/supplement intake. Last recorded weight is 90.7 kg. Bowel Motility: BM x 1 today. Labs Reviewed: Hgb (12.3), Hct (36.2), BUN (66), Alb (2.6), Cl (114) Meds Noted: Albuterol, Atrovent, Precedex, Protonix Additional Notes: No skin issues, other than macerated nose from previous bipap use. Will continue to monitor with same goal. Nutrition Monitoring and Evaluation: Follow up in 3 days.
[2020-04-21 13:40] LABS: NT Pro B Type Natriuretic Pept 240 PG/ML (5-100)
--- NOTE | 2020-04-21 16:08 | PM.IMPN ---
Progress Note: A&P Assessment and Plan (1) Suspected COVID-19 virus infection: Code(s): Z20.828 - Contact with and (suspected) exposure to other viral communicable diseases Status: Inactive Assessment and Plan: Pt is a 80-year-old male here for COVID-19 pneumonia. Pt had a rapid response and was transferredto icu for desaturation. Pt recived plasma on remdesivir and iv dexamethasone now. Seen by ICU doctors today 04/21/20 16:08 patient is 80-year-old male with COVID-19 pneumonia resulting in respiratory failure was on ventilator, and extubated, now on BIPAP at night and hgih flow O2 during day, completed remdesivir on 04/16 on dexamethasone 04/10, on and off patient gets agitated pulling out IVs, on PRN Precedex. off Rocephin and azithromycin as patient has viral pneumonia per ID and does not need antibiotics, afebrile last >72 hours, plan is to wean patient off BiPAP and on nasal cannula, once clinically stable will transfer patient out of ICU, however is x-ray shows persistent infiltrate most likely secondary to ARDS and COVID-19 pneumonia, on high-flow AirVol during the day and BiPAP at night requiring FiO2 60-70%, patient is still agitated and requiring Precedex will continue present management patient is seen by assistant manager/embalmer appreciate and further recommendation to follow (2) Sepsis: Code(s): A41.9 - Sepsis, unspecified organism Status: Acute Assessment and Plan: ----- on admission the patient had fever, tachycardia and leukocytosis. Secondary to COVID-19 pneumonia. (3) Bilateral pulmonary infiltrates on CXR: Code(s): R91.8 - Other nonspecific abnormal finding of lung field Status: Acute Assessment and Plan: -----COVID + (4) Acute kidney failure: Code(s): N17.9 - Acute kidney failure, unspecified Status: Acute Assessment and Plan: -c , creat is 1 (5) Obstructive sleep apnea on CPAP: Code(s): G47.33 - Obstructive sleep apnea (adult) (pediatric); Z99.89 - Dependence on other enabling machines and devices Status: Acute (6) Benign prostate hyperplasia: Code(s): N40.0 - Benign prostatic hyperplasia without lower urinary tract symptoms Status: Acute Assessment and Plan: -----Continue finasteride. No evidence to suggest urinary retention. (7) Acute metabolic encephalopathy: Code(s): G93.41 - Metabolic encephalopathy Status: Resolved Subjective Date/time seen: 04/21/20 16:08 patient is 80-year-old male with COVID-19 pneumonia resulting in respiratory failure was on ventilator, and extubated, now on BIPAP at night and hgih flow O2 during day, completed remdesivir on 04/16 on dexamethasone 04/10, on and off patient gets agitated pulling out IVs, on PRN Precedex. off Rocephin and azithromycin as patient has viral pneumonia per ID and does not need antibiotics, afebrile last >72 hours, plan is to wean patient off BiPAP and on nasal cannula, once clinically stable will transfer patient out of ICU, however is x-ray shows persistent infiltrate most likely secondary to ARDS and COVID-19 pneumonia, on high-flow AirVol during the day and BiPAP at night requiring FiO2 60-70%, patient is still agitated and requiring Precedex will continue present management patient is seen by assistant manager/embalmer appreciate and further recommendation to follow Review of Systems Review of Systems: ROS unobtainable: Yes unobtainable due to medical condition Exam Narrative: Exam Narrative: patient is seen but not examine outside glass door Const: General: comfortable and no acute distress HENMT: General nose exam: Normal nares present Neck: Other: no retraction Resp: Effort & Inspection: normal respiratory effort GI: Other: not distant Skin: General skin exam: normal color Neuro: Other: sedated Extrem: General: normal to inspection Psych: Other: sedated Objective Data Vital Signs Vital
--- NOTE | 2020-04-21 21:30 | PC.NURSE ---
Addendum entered by Zuleika Hobbs RN 04/21/20 22:12: Halima provided cell phone number to reach her with physician updates. Cell phone: [phone]. Original Note: Spoke with pt's , Halima, over the phone. Updated to pt's current condition.
[2020-04-22] VITALS (27 sets, daily range): BP systolic 97–144; BP diastolic 48–72; PULSE 77–103; RESP 18–27; TEMP 35.9–37.2; O2SAT 84–98
[2020-04-22] MEDS: ALBUTEROL SULFATE NEB 2.5 MG/0.5 ML INH INHALATION ×4 (01:13→21:05)
[2020-04-22] MEDS: IPRATROPIUM BR 0.02% INH SOLN 0.5 MG/2.5 ML VIAL INHALATION ×4 (01:13→21:05)
[2020-04-22] MEDS: CENTRAL LINE FLUSH 10 ML IV PUSH ×3 (05:45→20:33)
[2020-04-22 05:55] LABS: Hematocrit 35.2 % (42.0-52.0); Mean Corpuscular HGB Conc 34.1 g/dl (32-36); Mean Corpuscular Hemoglobin 30.5 pg (26-34); Mean Corpuscular Volume 89.6 fl (80-100); Mean Platelet Volume 11.2 fl (7.4-10.4); Platelet Count Result 184 k/mm3 (150-375); Red Blood Count 3.93 M/mm3 (4.6-6.20); Red Cell Distribution Width 15.2 % (11.5-14.5); White Blood Count 29.8 K/mm3 (4.5-10.0)
[2020-04-22 06:12] LABS: Alanine Aminotransferase 13 U/L (4-50); Albumin Level 2.5 g/dL (3.5-5.1); Alkaline Phosphatase 67 U/L (38-126); Anion Gap 4 mmol/L (8-16); Aspartate Amino Transferase 23 U/L (17-59); Bilirubin,Total 0.8 mg/dL (0.2-1.3); Blood Urea Nitrogen 67 mg/dL (9-20); Calcium 8.5 mg/dL (8.4-10.2); Carbon Dioxide 24 mmol/L (22-30); Chloride 116 mmol/L (98-107); Estimated CRCL calculation 45 ml/min; Estimated Glomerular Filt Rate 58; Glucose 101 mg/dL (75-110); Magnesium 2.4 mg/dL (1.6-2.3); Sodium 144 mmol/L (137-145)
[2020-04-22] MEDS: ENOXAPARIN 40 MG/0.4 ML SYRINGE SUB-Q ×2 (08:14→20:33)
[2020-04-22] MEDS: PANTOPRAZOLE SODIUM IV 40 MG VIAL IV PUSH (08:14)
--- NOTE | 2020-04-22 12:59 | WPDINTPN ---
Progress Note: A&P Assessment and Plan (1) Acute respiratory failure due to COVID-19: Code(s): U07.1 - COVID-19; J96.00 - Acute respiratory failure, unspecified whether with hypoxia or hypercapnia Status: Acute Assessment and Plan: Acute respiratory failure secondary to COVID-19 pneumonia, SARS-CoV-2 PCR positive CXR worsen 04/12 with increased oxygen requirement hence transferred to ICU Patient is on Airborne, Droplet and Contact Isolation Patient on dexamethasone started 04/11 and Will complete a 10 day course Remdesivir started 04/12 and course completed 04/12 Convalscent Plasma 1 unit Transfused BNP was elevated hence Lasix 40 mg IV was given for first few days. Rocephin and azithromycin discontinued by ID Lovenox subcu 40 mg q.12 hours due to markedly elevated D-dimer level Culture sent and negative till now Continue to monitor inflammatory markers which have not improved significantly with this patient CXR essentially unchanged and shows stable diffuse bilateral lung infiltrates consistent with ARDS from COVID-19 pneumonia patient on high-flow therapy overnight and during the day. FiO2 80% with adequate O2 sats. BiPAP if needed (2) Sepsis: Code(s): A41.9 - Sepsis, unspecified organism Status: Acute Assessment and Plan: status post Rocephin azithromycin which was started empirically, was discontinued 04/14 as cultures have been negative culture sent and negative till date lactic acid level on presentation was normal (3) Obstructive sleep apnea on CPAP: Code(s): G47.33 - Obstructive sleep apnea (adult) (pediatric); Z99.89 - Dependence on other enabling machines and devices Status: Acute Assessment and Plan: BiPAP if needed otherwise will continue on high-flow therapy (4) Acute metabolic encephalopathy: Code(s): G93.41 - Metabolic encephalopathy Status: Resolved Assessment and Plan: IMPROVING: appears to be delirium and toxic metabolic encephalopathy. patient gets agitated and confused. patient pulled 1 of his PICC lines. Due to him being in isolation he is at risk of pulling oxygen, BiPAP mask or IV lines, will continue Precedex infusion and wean as tolerated to keep patient awake - continue to monitor of mental status (5) Chest pain: Code(s): R07.9 - Chest pain, unspecified Status: Acute Assessment and Plan: Resolved - pleuritic and noncardiac in nature from history exam - EKG showed sinus tachycardia with no ST elevation - Troponin and CK-MB remained essentially flat (6) CHF (congestive heart failure): Code(s): I50.9 - Heart failure, unspecified Status: Acute Assessment and Plan: patient was given Lasix initially on presentation to ICU ECHO 04/13 showed diastolic dysfunction and elevated pulmonary pressure Summary 1. Left ventricular chamber dimension is normal. 2. Left ventricular systolic function is normal, estimated at 65-70%. 3. There is mildly increased left ventricular wall thickness. 4. The left ventricular diastolic function is grade I diastolic dysfunction. 5. Left atrial chamber dimension is mildly enlarged. 6. There is mild tricuspid valve regurgitation. 7. Mild pulmonary hypertension, estimated pulmonary arterial systolic pressure is 37 mmHg. 8. There is mild pulmonic regurgitation. Inferior Vena Cava - Dilated inferior vena cava with >50% collapse upon inspiration consistent with elevated right atrial pressure, 10 mmHg. (7) Delirium: Code(s): R41.0 - Disorientation, unspecified Status: Acute Assessment and Plan: see above (8) Urinary obstruction: Code(s): N13.9 - Obstructive and reflux uropathy, unspecified Status: Acute Assessment and Plan: nurses were unable to place Ross catheter. Urology was consulted and Ross placed 04/14 Additional Plan DVT prophylaxis - Lovenox. increased to twice a day due
--- NOTE | 2020-04-22 14:35 | PM.IMPN ---
Progress Note: A&P Assessment and Plan (1) Suspected COVID-19 virus infection: Code(s): Z20.828 - Contact with and (suspected) exposure to other viral communicable diseases Status: Inactive Assessment and Plan: Pt is a 80-year-old male here for COVID-19 pneumonia. Pt had a rapid response and was transferredto icu for desaturation. Pt recived plasma on remdesivir and iv dexamethasone now. Seen by ICU doctors today 04/22/20 14:35 patient is 80-year-old male with COVID-19 pneumonia resulting in respiratory failure was on ventilator, and extubated, now on BIPAP at night and hgih flow O2 during day, completed remdesivir on 04/16 on dexamethasone 04/10, on and off patient gets agitated pulling out IVs, on PRN Precedex. off Rocephin and azithromycin as patient has viral pneumonia per ID and does not need antibiotics, afebrile last >72 hours, plan is to wean patient off BiPAP and on nasal cannula, once clinically stable will transfer patient out of ICU, however is x-ray shows persistent infiltrate most likely secondary to ARDS and COVID-19 pneumonia, on high-flow AirVol during the day and BiPAP at night requiring FiO2 60-70%, patient is still agitated and requiring Precedex, today discussed with the metallography teacher prognosis is poor, will continue present management patient is seen by metallography teacher appreciate and further recommendation to follow (2) Sepsis: Code(s): A41.9 - Sepsis, unspecified organism Status: Acute Assessment and Plan: ----- on admission the patient had fever, tachycardia and leukocytosis. Secondary to COVID-19 pneumonia. (3) Bilateral pulmonary infiltrates on CXR: Code(s): R91.8 - Other nonspecific abnormal finding of lung field Status: Acute Assessment and Plan: -----COVID + (4) Acute kidney failure: Code(s): N17.9 - Acute kidney failure, unspecified Status: Acute Assessment and Plan: -c , creat is 1 (5) Obstructive sleep apnea on CPAP: Code(s): G47.33 - Obstructive sleep apnea (adult) (pediatric); Z99.89 - Dependence on other enabling machines and devices Status: Acute (6) Benign prostate hyperplasia: Code(s): N40.0 - Benign prostatic hyperplasia without lower urinary tract symptoms Status: Acute Assessment and Plan: -----Continue finasteride. No evidence to suggest urinary retention. (7) Acute metabolic encephalopathy: Code(s): G93.41 - Metabolic encephalopathy Status: Resolved Subjective Date/time seen: 04/22/20 14:35 patient is 80-year-old male with COVID-19 pneumonia resulting in respiratory failure was on ventilator, and extubated, now on BIPAP at night and hgih flow O2 during day, completed remdesivir on 04/16 on dexamethasone 04/10, on and off patient gets agitated pulling out IVs, on PRN Precedex. off Rocephin and azithromycin as patient has viral pneumonia per ID and does not need antibiotics, afebrile last >72 hours, plan is to wean patient off BiPAP and on nasal cannula, once clinically stable will transfer patient out of ICU, however is x-ray shows persistent infiltrate most likely secondary to ARDS and COVID-19 pneumonia, on high-flow AirVol during the day and BiPAP at night requiring FiO2 60-70%, patient is still agitated and requiring Precedex, today discussed with the metallography teacher prognosis is poor, will continue present management patient is seen by metallography teacher appreciate and further recommendation to follow Review of Systems Review of Systems: ROS unobtainable: Yes unobtainable due to medical condition Exam Narrative: Exam Narrative: patient is seen but not examine outside glass door Const: General: comfortable and no acute distress HENMT: General nose exam: Normal nares present Neck: Other: no retraction Resp: Effort & Inspection: normal respiratory effort GI: Other: not distant Skin: General skin exam: normal color Neuro:
[2020-04-23] VITALS (41 sets, daily range): BP systolic 88–143; BP diastolic 39–101; PULSE 72–120; RESP 19–33; TEMP 36.2–38.1; O2SAT 85–100
[2020-04-23] MEDS: IPRATROPIUM BR 0.02% INH SOLN 0.5 MG/2.5 ML VIAL INHALATION ×4 (02:37→21:06)
[2020-04-23] MEDS: ALBUTEROL SULFATE NEB 2.5 MG/0.5 ML INH INHALATION ×4 (02:37→21:06)
[2020-04-23] MEDS: CENTRAL LINE FLUSH 10 ML IV PUSH ×3 (05:24→21:11)
[2020-04-23 05:54] LABS: Basophils Percent Auto 0.2 % (0.2-1.2); Eosinophils Percent Auto 0.1 % (0-4.4); Hematocrit 34.2 % (42.0-52.0); Hemoglobin 11.5 g/dL (14.0-18.0); Immature Granulocyte Absolute 0.15 K/mm3 (0.00-0.031); Immature Granulocyte Percent A 0.7 % (0-0.5); Lymphocytes Absolute Auto 0.75 K/mm3 (0.9-3.2); Lymphocytes Percent Auto 3.5 % (18.3-44.2); Mean Corpuscular HGB Conc 33.6 g/dl (32-36); Mean Corpuscular Hemoglobin 30.2 pg (26-34); Mean Corpuscular Volume 89.8 fl (80-100); Mean Platelet Volume 11.3 fl (7.4-10.4); Monocytes Absolute Auto 0.6 K/mm3 (0.1-0.6); Monocytes Percent Auto 2.7 % (2.6-8.5); Neutrophils Percent Auto 92.8 % (45.5-73.1); Platelet Count Result 183 k/mm3 (150-375); Red Blood Count 3.81 M/mm3 (4.6-6.20); White Blood Count 21.6 K/mm3 (4.5-10.0)
[2020-04-23 06:17] LABS: Alanine Aminotransferase 18 U/L (4-50); Albumin Level 2.4 g/dL (3.5-5.1); Alkaline Phosphatase 69 U/L (38-126); Anion Gap 4 mmol/L (8-16); Aspartate Amino Transferase 26 U/L (17-59); Blood Urea Nitrogen 61 mg/dL (9-20); Calcium 8.3 mg/dL (8.4-10.2); Carbon Dioxide 25 mmol/L (22-30); Chloride 116 mmol/L (98-107); Estimated CRCL calculation 42 ml/min; Estimated Glomerular Filt Rate 53; Glucose 123 mg/dL (75-110); Lactate Dehydrogenase 841 U/L (313-618); Magnesium 2.4 mg/dL (1.6-2.3); Phosphorus 3.9 mg/dL (2.5-4.5); Potassium 4.1 mmol/L (3.4-5.0); Sodium 145 mmol/L (137-145)
[2020-04-23 06:19] LABS: D Dimer 8.71 ug/mL (<0.48)
[2020-04-23 06:32] LABS: CRP 8.3 mg/dL (<1.0); Lactate Dehydrogenase 807 U/L (313-618); Phosphorus 3.1 mg/dL (2.5-4.5)
[2020-04-23 07:31] LABS: Ovalocytes 1+ (NORMAL); Platelet Estimate Adequate (Adequate); Poikilocytosis 1+ (NORMAL)
[2020-04-23] MEDS: PANTOPRAZOLE SODIUM IV 40 MG VIAL IV PUSH (08:39)
[2020-04-23] MEDS: ENOXAPARIN 40 MG/0.4 ML SYRINGE SUB-Q ×2 (08:39→20:01)
[2020-04-23 09:45] LABS: Alveolar/Arterial O2 Gradient 601.4 mmHg; Base Excess ABG -1.2 mEq/l (+/-2.0); Fractional Inspired Oxygen 94 %; HCO3 ABG 20.9 mEq/l (22.0-26.0); Oxygen Content ABG 14.1 %vol (16.0-22.0); Oxyhemoglobin 76.8 % THb (90.0-100.0); PCO2 ABG 27.9 mmHg (35.0-45.0); PO2 FiO2 Ratio Arterial Blood 0.43 %; Total Hemoglobin 13.1 g/dL (12.0-18.0); pH ABG 7.493 (7.350-7.450)
[2020-04-23 09:46] LABS: Oxygen Saturation ABG 81.1 % (95.0-100.0); PO2 ABG 40.5 mmHg (80.0-100.0); Site Drawn LEFT RADIAL
[2020-04-23 09:47] LABS: Device HIGH FLOW THERAPY; Modified Allen's Test Pass
--- NOTE | 2020-04-23 10:15 | PC.NURSE ---
Spoke to patients daughter Melinda, after discussion with her mother and sister they have elected to have patient intubated. Dr. Hamilton notified.
[2020-04-23] MEDS: MIDAZOLAM HCL 2 MG/2 ML VIAL IV PUSH (11:20)
[2020-04-23 12:22] LABS: Alveolar/Arterial O2 Gradient 608.5 mmHg; Base Excess ABG -1.5 mEq/l (+/-2.0); Carboxyhemoglobin 0.3 % THb (0-2.0); Fractional Inspired Oxygen 100 %; HCO3 ABG 24.1 mEq/l (22.0-26.0); Methemoglobin ABG 0.3 %THb (0-1.5); Oxygen Content ABG 16.1 %vol (16.0-22.0); Oxygen Saturation ABG 90.3 % (95.0-100.0); Oxyhemoglobin 87.6 % THb (90.0-100.0); PCO2 ABG 43.8 mmHg (35.0-45.0); PO2 ABG 60.7 mmHg (80.0-100.0); PO2 FiO2 Ratio Arterial Blood 0.61 %; Reduced Hemoglobin 11.8 %THb (0-5.0); Total Hemoglobin 13.1 g/dL (12.0-18.0); pH ABG 7.358 (7.350-7.450)
[2020-04-23 12:23] LABS: Arterial Blood Gas Ventilator rate 24 /MIN; Device VENTILATOR; Modified Allen's Test Pass; Site Drawn LEFT RADIAL
[2020-04-23 12:24] LABS: Arterial Blood Gas PEEP 10 cmH2O; Arterial Blood Gas Pressure Support 0 cmH2O; Arterial Blood Gas Tidal Volume 450 ml; Arterial Blood Gas Vent Mode CMV
--- NOTE | 2020-04-23 13:52 | WPDINTPN ---
Progress Note: A&P Assessment and Plan (1) Acute respiratory failure due to COVID-19: Code(s): U07.1 - COVID-19; J96.00 - Acute respiratory failure, unspecified whether with hypoxia or hypercapnia Status: Acute Assessment and Plan: Acute respiratory failure secondary to COVID-19 pneumonia, SARS-CoV-2 PCR positive CXR worsen 04/12 with increased oxygen requirement hence transferred to ICU Patient is on Airborne, Droplet and Contact Isolation Patient on dexamethasone started 04/11 and Will complete a 10 day course Remdesivir started 04/12 and course completed 04/12 Convalscent Plasma 1 unit Transfused Rocephin and azithromycin discontinued by ID Lovenox subcu 40 mg q.12 hours due to markedly elevated D-dimer level Culture sent and negative till now Continue to monitor inflammatory markers which have not improved significantly with this patient patient will lethargic and confused this morning, hypoxic with O2 sats in the mid and upper 80s, ABGs reveal severe hypoxemia, discussed with Halima and daughter Melinda and day requested patient to be intubated. Patient was intubated on 04/23/2020, intubation was uneventful. Patient currently on CMV mode of ventilation, 100% FiO2 and peep of 10 with adequate O2 sats. CXR essentially unchanged and shows stable diffuse bilateral lung infiltrates consistent with ARDS from COVID-19 pneumonia (2) Sepsis: Code(s): A41.9 - Sepsis, unspecified organism Status: Acute Assessment and Plan: status post Rocephin azithromycin which was started empirically, was discontinued 04/14 as cultures have been negative culture sent and negative till date lactic acid level on presentation was normal - Currently hemodynamically stable (3) Obstructive sleep apnea on CPAP: Code(s): G47.33 - Obstructive sleep apnea (adult) (pediatric); Z99.89 - Dependence on other enabling machines and devices Status: Acute Assessment and Plan: intubated on mechanical ventilation at this time (4) Acute metabolic encephalopathy: Code(s): G93.41 - Metabolic encephalopathy Status: Resolved Assessment and Plan: encephalopathy was worse this morning most likely secondary to hypoxemia (5) Chest pain: Code(s): R07.9 - Chest pain, unspecified Status: Acute Assessment and Plan: Resolved - pleuritic and noncardiac in nature from history exam - EKG showed sinus tachycardia with no ST elevation - Troponin and CK-MB remained essentially flat (6) CHF (congestive heart failure): Code(s): I50.9 - Heart failure, unspecified Status: Acute Assessment and Plan: patient was given Lasix initially on presentation to ICU ECHO 04/13 showed diastolic dysfunction and elevated pulmonary pressure Summary 1. Left ventricular chamber dimension is normal. 2. Left ventricular systolic function is normal, estimated at 65-70%. 3. There is mildly increased left ventricular wall thickness. 4. The left ventricular diastolic function is grade I diastolic dysfunction. 5. Left atrial chamber dimension is mildly enlarged. 6. There is mild tricuspid valve regurgitation. 7. Mild pulmonary hypertension, estimated pulmonary arterial systolic pressure is 37 mmHg. 8. There is mild pulmonic regurgitation. Inferior Vena Cava - Dilated inferior vena cava with >50% collapse upon inspiration consistent with elevated right atrial pressure, 10 mmHg. (7) Delirium: Code(s): R41.0 - Disorientation, unspecified Status: Acute Assessment and Plan: see above (8) Urinary obstruction: Code(s): N13.9 - Obstructive and reflux uropathy, unspecified Status: Acute Assessment and Plan: nurses were unable to place Ross catheter. Urology was consulted and Ross placed 04/14 Additional Plan DVT prophylaxis - Lovenox 40 mg SQ q.12 hours Stress ulcer prophylaxis - PPI Nutrition - will start
--- NOTE | 2020-04-23 13:59 | P.PCNBED_ITS ---
Procedures Intubation Intubation Date: 04/23/20 A pre-procedural Time-Out was completed immediately before starting the procedure and confirmed: Patient Identification, Site, Procedure, Patient Position and the Availability of Requisite Equipment: Yes Sedative: etomidate Paralytic: succinylcholine Laryngoscope: fiber optic video scope Assist device used: fiber optic device ET tube size: 8 Tube secured depth (cm): 23 Tube secured location: lips Tube placement confirmation: visualized tube passing through cords, equal breath sounds bilaterally, no breath sounds over epigastrium and confirmation by capnometry Patient tolerated procedure: well Intubation complications: none Additional comments: After obtaining consent from the and explaining the rationale for intubation. it was decided to go ahead and intubate the patient. The patient was lying in the supine position. Preoxygenation via BVM was provided for a minimum of 3 minutes. The patient had continuous cardiac as well as pulse oximetry monitoring during the procedure. Rapid sequence induction was provided by administration of Etomidate and Succinylcholine. A Glidescope blade 4 was used to directly visualize the vocal cords. A 8 mm endotracheal tube was visualized advancing between the cords to a level of 23 cm at the lip. The stylette was then removed. Tube placement was also noted by fogging in the tube, equal and bilateral breath sounds, no sounds over the epigastrium, and end-tidal colorimetric monitoring. The cuff was then inflated with 10 ml of air and the tube secured using a commercially available device. A good pulse oximetry wave f orm was seen on the monitor throughout the procedure. The patient was then connected to the ventilator at a tidal volume of 450 ml; rate of 24; FiO2 of 100%; and PEEP of 10. A portable chest x-ray has been ordered for placement. Continued sedation will be provided by Fentanyl and Versed continuous infusion titrated to a RASS of 0 to -2. The patient tolerated the procedure well.
[2020-04-23 18:27] LABS: Glucose Point of Care 75 (65-105)
[2020-04-23] MEDS: ACETAMINOPHEN 325 MG TABLET 650 MG PO (20:02)
[2020-04-23 20:45] LABS: Glucose Point of Care 71 (65-105)
[2020-04-23 21:57] LABS: Glucose Point of Care 109 (65-105)
[2020-04-23] MEDS: hetaSTARCH 6%/NACL 500 ML 250 ML IV CONT (22:21)
[2020-04-23] MEDS: NOREPINEPHRINE 8 MG/D5W 250 ML 8 MG/250 ML BAG 9.4 MG IV CONT (23:31)
[2020-04-24] VITALS (32 sets, daily range): BP systolic 109–140; BP diastolic 44–53; PULSE 104–129; RESP 14–33; TEMP 36.1–38.1; O2SAT 95–99; BMI 29.2
[2020-04-24 00:09] LABS: Glucose Point of Care 105 (65-105)
[2020-04-24] MEDS: IPRATROPIUM BR 0.02% INH SOLN 0.5 MG/2.5 ML VIAL INHALATION ×4 (02:22→20:10)
[2020-04-24] MEDS: ALBUTEROL SULFATE NEB 2.5 MG/0.5 ML INH INHALATION ×4 (02:22→20:10)
[2020-04-24 04:54] LABS: Hematocrit 32.3 % (42.0-52.0); Hemoglobin 10.6 g/dL (14.0-18.0); Mean Corpuscular HGB Conc 32.8 g/dl (32-36); Mean Corpuscular Hemoglobin 29.9 pg (26-34); Mean Corpuscular Volume 91.2 fl (80-100); Platelet Count Result 209 k/mm3 (150-375); Red Blood Count 3.54 M/mm3 (4.6-6.20); Red Cell Distribution Width 15.5 % (11.5-14.5); White Blood Count 24.9 K/mm3 (4.5-10.0)
[2020-04-24 05:12] LABS: Alanine Aminotransferase 16 U/L (4-50); Albumin Level 2.2 g/dL (3.5-5.1); Alkaline Phosphatase 60 U/L (38-126); Anion Gap 3 mmol/L (8-16); Aspartate Amino Transferase 22 U/L (17-59); Bilirubin,Total 1.2 mg/dL (0.2-1.3); Blood Urea Nitrogen 73 mg/dL (9-20); Carbon Dioxide 24 mmol/L (22-30); Chloride 118 mmol/L (98-107); Estimated CRCL calculation 28 ml/min; Estimated Glomerular Filt Rate 32; Glucose 144 mg/dL (75-110); Magnesium 2.5 mg/dL (1.6-2.3); Potassium 4.3 mmol/L (3.4-5.0); Sodium 145 mmol/L (137-145)
[2020-04-24 05:19] LABS: Base Excess ABG -3.7 mEq/l (+/-2.0); Carboxyhemoglobin 0.3 % THb (0-2.0); Fractional Inspired Oxygen 60 %; HCO3 ABG 21.1 mEq/l (22.0-26.0); Methemoglobin ABG 0.3 %THb (0-1.5); Oxygen Content ABG 14.3 %vol (16.0-22.0); Oxyhemoglobin 86.2 % THb (90.0-100.0); PCO2 ABG 37.3 mmHg (35.0-45.0); PO2 ABG 56.8 mmHg (80.0-100.0); PO2 FiO2 Ratio Arterial Blood 0.95 %; Reduced Hemoglobin 13.2 %THb (0-5.0); Total Hemoglobin 11.8 g/dL (12.0-18.0); pH ABG 7.371 (7.350-7.450)
[2020-04-24 05:20] LABS: Arterial Blood Gas PEEP 10 cmH2O; Arterial Blood Gas Tidal Volume 450 ml; Arterial Blood Gas Vent Mode CMV; Arterial Blood Gas Ventilator rate 24 /MIN; Device VENTILATOR; Modified Allen's Test Pass; Site Drawn RIGHT RADIAL
[2020-04-24] MEDS: CENTRAL LINE FLUSH 10 ML IV PUSH ×3 (05:39→20:40)
[2020-04-24] MEDS: ENOXAPARIN 40 MG/0.4 ML SYRINGE SUB-Q ×2 (08:10→20:39)
[2020-04-24] MEDS: PANTOPRAZOLE SODIUM IV 40 MG VIAL IV PUSH (08:10)
[2020-04-24] MEDS: SODIUM CHLORIDE 0.9% IV 500 ML IV CONT (08:17)
[2020-04-24] MEDS: METOCLOPRAMIDE HCL INJ 10 MG/2 ML VIAL IV PUSH ×2 (11:39→17:00)
--- NOTE | 2020-04-24 11:48 | PCDIET ---
Nutrition Follow-Up Complete: Nutrition Diagnosis: Inadequate oral intake related to respiratory failure as evidenced by NPO/clear liquid diet x 3 days. Nutrition Goal: Patient to meet estimated nutritional needs. Goal in progress. Patient intubated and now receiving Vital 1.2 at 30mL/hr. Rate not further increased due to elevated residual, per nursing. MD to add Reglan. Recommended ultimate goal of 65mL/hr Vital 1.2 x 22 hours/day for 1716kcal and 107g protein. If renal function does not improve with fluid bolus, may need to adjust recommendation on next review. Last recorded weight is 92.5 kg which is increased, despite -I/O. Will monitor. Bowel Motility: Small BM reported today. Labs Reviewed: Hgb (10.6), Hct (32.3), Glu (144), BUN (73), Cr (2.0), Alb (2.2), Brendan Ca (9.44) Meds Noted: Albuterol, Atrovent, Protonix, Fentanyl, Versed, Novolog, Levophed, Zofran Additional Notes: Macerated area to nose; buttocks reddened. Will continue to monitor with same goal. Nutrition Monitoring and Evaluation: Follow up every Friday/Friday. Follow daily in ICU rounds.
[2020-04-24 11:52] LABS: Glucose Point of Care 120 (65-105)
--- NOTE | 2020-04-24 13:22 | WPDINTPN ---
Progress Note: A&P Assessment and Plan (1) Acute respiratory failure due to COVID-19: Code(s): U07.1 - COVID-19; J96.00 - Acute respiratory failure, unspecified whether with hypoxia or hypercapnia Status: Acute Assessment and Plan: Acute respiratory failure secondary to COVID-19 pneumonia, SARS-CoV-2 PCR positive CXR worsen 04/12 with increased oxygen requirement hence transferred to ICU Patient is on Airborne, Droplet and Contact Isolation Patient on dexamethasone started 04/11 and Will complete a 10 day course Remdesivir started 04/12 and course completed 04/12 Convalscent Plasma 1 unit Transfused Rocephin and azithromycin discontinued by ID Lovenox subcu 40 mg q.12 hours due to markedly elevated D-dimer level Culture sent and negative till now Continue to monitor inflammatory markers which have not improved significantly with this patient - Patient was intubated on 04/23/2020, due to severe hypoxemia on ABG along with with decreased mental status - continue patient on CMV mode of ventilation, 70% FiO2, peep of 10. Low tidal volume strategy to avoid volu trauma CXR essentially unchanged and shows stable diffuse bilateral lung infiltrates consistent with ARDS from COVID-19 pneumonia (2) Sepsis: Code(s): A41.9 - Sepsis, unspecified organism Status: Acute Assessment and Plan: - leukocytosis along with fevers, tachycardia, could be developing underlying bacterial infection - will start imipenem and vancomycin - obtain sputum and blood culture - patient also hypotensive likely related to sedation and/or infection, along with acute kidney injury - continue Levophed to maintain mean arterial pressures > 65 mmHg - (3) Acute metabolic encephalopathy: Code(s): G93.41 - Metabolic encephalopathy Status: Resolved Assessment and Plan: worsening encephalopathy on 04/23/2020 likely secondary to hypoxemia. Patient currently intubated and sedated (4) Chest pain: Code(s): R07.9 - Chest pain, unspecified Status: Acute Assessment and Plan: Resolved - pleuritic and noncardiac in nature from history exam - EKG showed sinus tachycardia with no ST elevation - Troponin and CK-MB remained essentially flat (5) CHF (congestive heart failure): Code(s): I50.9 - Heart failure, unspecified Status: Acute Assessment and Plan: patient was given Lasix initially on presentation to ICU ECHO 04/13 showed diastolic dysfunction and elevated pulmonary pressure Summary 1. Left ventricular chamber dimension is normal. 2. Left ventricular systolic function is normal, estimated at 65-70%. 3. There is mildly increased left ventricular wall thickness. 4. The left ventricular diastolic function is grade I diastolic dysfunction. 5. Left atrial chamber dimension is mildly enlarged. 6. There is mild tricuspid valve regurgitation. 7. Mild pulmonary hypertension, estimated pulmonary arterial systolic pressure is 37 mmHg. 8. There is mild pulmonic regurgitation. Inferior Vena Cava - Dilated inferior vena cava with >50% collapse upon inspiration consistent with elevated right atrial pressure, 10 mmHg. (6) Urinary obstruction: Code(s): N13.9 - Obstructive and reflux uropathy, unspecified Status: Acute Assessment and Plan: nurses were unable to place Ross catheter. Urology was consulted and Ross placed 04/14 (7) Acute kidney injury: Code(s): N17.9 - Acute kidney failure, unspecified Status: Acute Assessment and Plan: acute kidney injury most likely related to hypotension, sepsis, infection - patient was given IV fluid bolus of 500 cc x1 - will continue to monitor urine output, electrolytes and renal function (8) DVT prophylaxis: Code(s): Z29.9 - Encounter for prophylactic measures, unspecified Status: Acute Assessment and Plan: Lovenox 40 mg SQ q.12 hours (9) Dietary counseling an
[2020-04-24 14:33] LABS: Lactic Acid Reflex 1.1 mmol/L (0.7-2.1)
--- NOTE | 2020-04-24 16:22 | PM.IMPN ---
Progress Note: A&P Assessment and Plan (1) Acute respiratory failure due to COVID-19: Code(s): U07.1 - COVID-19; J96.00 - Acute respiratory failure, unspecified whether with hypoxia or hypercapnia Status: Acute Assessment and Plan: Received dexamethasone, remdesivir and convalescent plasma. On high dose lovenox due to elevated D dimer and hypercoagulable state due to covid. (2) Sepsis: Code(s): A41.9 - Sepsis, unspecified organism Status: Acute Assessment and Plan: Severe sepsis with shock thought to be secondary to COVID pneumonia but now with concern of superimposed bacterial PNA. On wide spectrum antibiotics imipenem and vancomycin. Sputum and blood cultures per critical care team. (3) Acute kidney injury: Code(s): N17.9 - Acute kidney failure, unspecified Status: Acute Assessment and Plan: acute kidney injury most likely related to hypotension, sepsis, infection will continue to monitor urine output, electrolytes and renal function (4) DVT prophylaxis: Code(s): Z29.9 - Encounter for prophylactic measures, unspecified Status: Acute Assessment and Plan: Lovenox 40 mg SQ q.12 hours Subjective Date/time seen: Remains intubated and sedated. 04/24/20 16:22 Exam Const: Other: Sedated and intubated Neck: Neck: no JVD Resp: Auscultation: rhonchi and diminished lung sounds Cardio: Rate: regular rate Rhythm: regular rhythm GI: Auscultation: normal bowel sounds Neuro: Other: Sedated, not following commands. Objective Data Vital Signs Vital Signs: Vital Signs - 24 hr 04/23/20 17:04 04/23/20 17:54 04/23/20 18:00 Temperature Pulse Rate 104 H 108 H 108 H Respiratory Rate 24 H Blood Pressure 122/57 L Pulse Oximetry 97 97 04/23/20 20:00 04/23/20 20:02 04/23/20 20:08 Temperature 100.6 F H 100.6 F H Pulse Rate 113 H 112 H Respiratory Rate 30 H 30 H Blood Pressure 131/55 L Pulse Oximetry 96 04/23/20 20:40 04/23/20 21:02 04/23/20 21:06 Temperature 99.2 F Pulse Rate 106 H 106 H Respiratory Rate 24 H Blood Pressure Pulse Oximetry 96 04/23/20 21:15 04/23/20 21:16 04/23/20 22:00 Temperature 98.9 F Pulse Rate 114 H 111 H 104 H Respiratory Rate 24 H 24 H 24 H Blood Pressure 88/48 L Pulse Oximetry 95 04/23/20 22:30 04/23/20 23:30 04/23/20 23:31 Temperature Pulse Rate 105 H Respiratory Rate Blood Pressure 106/50 L 108/39 L 108/39 L Pulse Oximetry 04/23/20 23:40 04/24/20 00:00 04/24/20 02:00 Temperature 98.9 F Pulse Rate 104 H 119 H 109 H Respiratory Rate 26 H 24 H Blood Pressure 143/50 H 126/53 L 116/46 L Pulse Oximetry 98 96 97 04/24/20 02:22 04/24/20 02:29 04/24/20 02:30 Temperature Pulse Rate 107 H 108 H 112 H Respiratory Rate 26 H 28 H Blood Pressure Pulse Oximetry 98 04/24/20 04:00 04/24/20 04:52 04/24/20 05:26 Temperature 98.7 F Pulse Rate 114 H 104 H 114 H Respiratory Rate 26 H Blood Pressure 113/47 L Pulse Oximetry 96 97 04/24/20 06:00 04/24/20 08:00 04/24/20 08:18 Temperature 97 F L Pulse Rate 111 H 112 H 114 H Respiratory Rate 17 24 H 16 Blood Pressure 122/44 L 140/48 L Pulse Oximetry 97 97 04/24/20 08:26 04/24/20 08:36 04/24/20 10:00 Temperature Pulse Rate 112 H 117 H 124 H Respiratory Rate 31 H 32 H 24 H Blood Pressure 127/53 L Pulse Oximetry 96 98 04/24/20 10:17 04/24/20 11:04 04/24/20 11:41 Temperature Pulse Rate 124 H 124 H 121 H Respiratory Rate 17 20 Blood Pressure Pulse Oximetry 98 04/24/20 12:00 04/24/20 14:00 04/24/20 14:17 Temperature 98.5 F Pulse Rate 121 H 122 H 122 H Respiratory Rate 18 20 33 H Blood Pressure 130/49 L 118/53 L Pulse Oximetry 99 98 99 04/24/20 15:58 Temperature Pulse Rate 124 H Respiratory Rate 20 Blood Pressure Pulse Oximetry Intake/Output Intake/Output: Intake & Output 04/21/20 04/22/20 04/23/20 04/24/20
[2020-04-24 16:45] LABS: Glucose Point of Care 164 (65-105)
[2020-04-24] MEDS: ACETAMINOPHEN 325 MG TABLET 650 MG PO (20:40)
[2020-04-25] VITALS (40 sets, daily range): BP systolic 96–163; BP diastolic 38–91; PULSE 110–137; RESP 14–30; TEMP 36.6–37.4; O2SAT 90–100
[2020-04-25] MEDS: METOCLOPRAMIDE HCL INJ 10 MG/2 ML VIAL IV PUSH ×5 (00:16→23:12)
[2020-04-25 00:44] LABS: Glucose Point of Care 136 (65-105)
[2020-04-25] MEDS: IPRATROPIUM BR 0.02% INH SOLN 0.5 MG/2.5 ML VIAL INHALATION ×3 (02:38→14:33)
[2020-04-25] MEDS: ALBUTEROL SULFATE NEB 2.5 MG/0.5 ML INH INHALATION ×3 (02:38→14:34)
[2020-04-25 04:33] LABS: Hematocrit 30.2 % (42.0-52.0); Hemoglobin 9.7 g/dL (14.0-18.0); Mean Corpuscular HGB Conc 32.1 g/dl (32-36); Mean Corpuscular Hemoglobin 30.1 pg (26-34); Mean Corpuscular Volume 93.8 fl (80-100); Mean Platelet Volume 11.5 fl (7.4-10.4); Platelet Count Result 193 k/mm3 (150-375); Red Blood Count 3.22 M/mm3 (4.6-6.20); Red Cell Distribution Width 15.7 % (11.5-14.5); White Blood Count 21.4 K/mm3 (4.5-10.0)
[2020-04-25] MEDS: CENTRAL LINE FLUSH 10 ML IV PUSH ×3 (04:33→20:20)
[2020-04-25 04:36] LABS: Base Excess ABG -3.6 mEq/l (+/-2.0); Carboxyhemoglobin 0.3 % THb (0-2.0); Fractional Inspired Oxygen 70 %; HCO3 ABG 21.9 mEq/l (22.0-26.0); Methemoglobin ABG 0.5 %THb (0-1.5); Oxygen Content ABG 16.9 %vol (16.0-22.0); Oxygen Saturation ABG 92.3 % (95.0-100.0); PCO2 ABG 41.1 mmHg (35.0-45.0); PO2 ABG 66.9 mmHg (80.0-100.0); PO2 FiO2 Ratio Arterial Blood 0.96 %; Reduced Hemoglobin 8.2 %THb (0-5.0); Total Hemoglobin 13.2 g/dL (12.0-18.0); pH ABG 7.344 (7.350-7.450)
[2020-04-25 04:37] LABS: Device VENTILATOR; Modified Allen's Test Pass; Site Drawn LEFT RADIAL
[2020-04-25 04:38] LABS: Arterial Blood Gas PEEP 10 cmH2O; Arterial Blood Gas Tidal Volume 450 ml; Arterial Blood Gas Vent Mode CMV; Arterial Blood Gas Ventilator rate 24 /MIN
[2020-04-25 04:39] LABS: D Dimer 3.51 ug/mL (<0.48)
[2020-04-25 04:50] LABS: Alanine Aminotransferase 11 U/L (4-50); Alkaline Phosphatase 61 U/L (38-126); Anion Gap 3 mmol/L (8-16); Aspartate Amino Transferase 17 U/L (17-59); Bilirubin,Total 0.5 mg/dL (0.2-1.3); Blood Urea Nitrogen 65 mg/dL (9-20); Calcium 7.5 mg/dL (8.4-10.2); Carbon Dioxide 25 mmol/L (22-30); Chloride 116 mmol/L (98-107); Estimated CRCL calculation 36 ml/min; Estimated Glomerular Filt Rate 39; Glucose 191 mg/dL (75-110); Lactate Dehydrogenase 589 U/L (313-618); Magnesium 2.5 mg/dL (1.6-2.3); Sodium 144 mmol/L (137-145)
[2020-04-25 05:02] LABS: CRP 25.6 mg/dL (<1.0)
[2020-04-25] MEDS: PANTOPRAZOLE SODIUM IV 40 MG VIAL IV PUSH (08:57)
[2020-04-25] MEDS: ENOXAPARIN 40 MG/0.4 ML SYRINGE SUB-Q (08:57)
--- NOTE | 2020-04-25 08:58 | WPDINTPN ---
Progress Note: A&P Assessment and Plan (1) Acute respiratory failure due to COVID-19: Code(s): U07.1 - COVID-19; J96.00 - Acute respiratory failure, unspecified whether with hypoxia or hypercapnia Status: Acute Assessment and Plan: Acute respiratory failure secondary to COVID-19 pneumonia, SARS-CoV-2 PCR positive CXR worsen 04/12 with increased oxygen requirement hence transferred to ICU Patient is on Airborne, Droplet and Contact Isolation Patient on dexamethasone started 04/11 and completed 10 day course Remdesivir started 04/12 and course completed 04/12 Convalscent Plasma 1 unit Transfused Lovenox subcu 40 mg q.12 hours due to markedly elevated D-dimer level monitoring inflammatory markers - Patient was intubated on 04/23/2020, due to severe hypoxemia on ABG along with with decreased mental status - continue patient on CMV mode of ventilation, 70% FiO2, peep of 10. Low tidal volume strategy to avoid volu trauma - CXR essentially unchanged and shows stable diffuse bilateral lung infiltrates consistent with ARDS from COVID-19 pneumonia (2) Sepsis: Code(s): A41.9 - Sepsis, unspecified organism Status: Acute Assessment and Plan: - leukocytosis along with fevers, tachycardia, could be developing underlying bacterial infection - continue imipenem and vancomycin - obtain sputum, blood and urine cultures - patient also hypotensive likely related to sedation and/or infection, along with acute kidney injury - continue Levophed to maintain mean arterial pressures > 65 mmHg - continues to tachycardic, will check venous Dopplers for DVT (3) Acute metabolic encephalopathy: Code(s): G93.41 - Metabolic encephalopathy Status: Resolved Assessment and Plan: worsening encephalopathy on 04/23/2020 likely secondary to hypoxemia. Patient currently intubated and sedated (4) Chest pain: Code(s): R07.9 - Chest pain, unspecified Status: Acute Assessment and Plan: Resolved - pleuritic and noncardiac in nature from history exam - EKG showed sinus tachycardia with no ST elevation - Troponin and CK-MB remained essentially flat (5) CHF (congestive heart failure): Code(s): I50.9 - Heart failure, unspecified Status: Acute Assessment and Plan: patient was given Lasix initially on presentation to ICU ECHO 04/13 showed diastolic dysfunction and elevated pulmonary pressure Summary 1. Left ventricular chamber dimension is normal. 2. Left ventricular systolic function is normal, estimated at 65-70%. 3. There is mildly increased left ventricular wall thickness. 4. The left ventricular diastolic function is grade I diastolic dysfunction. 5. Left atrial chamber dimension is mildly enlarged. 6. There is mild tricuspid valve regurgitation. 7. Mild pulmonary hypertension, estimated pulmonary arterial systolic pressure is 37 mmHg. 8. There is mild pulmonic regurgitation. Inferior Vena Cava - Dilated inferior vena cava with >50% collapse upon inspiration consistent with elevated right atrial pressure, 10 mmHg. (6) Urinary obstruction: Code(s): N13.9 - Obstructive and reflux uropathy, unspecified Status: Acute Assessment and Plan: nurses were unable to place Ross catheter. Urology was consulted and Ross placed 04/14 (7) Acute kidney injury: Code(s): N17.9 - Acute kidney failure, unspecified Status: Acute Assessment and Plan: acute kidney injury most likely related to hypotension, sepsis, infection - patient was given IV fluid bolus of 500 cc x1 - will continue to monitor urine output, electrolytes and renal function (8) DVT prophylaxis: Code(s): Z29.9 - Encounter for prophylactic measures, unspecified Status: Acute Assessment and Plan: Lovenox 40 mg SQ q.12 hours (9) Dietary counseling and surveillance: Code(s): Z71.3 - Dietary counseling and surveillance
[2020-04-25] MEDS: SODIUM CHLORIDE 0.9% IV 500 ML IV CONT (11:20)
[2020-04-25 11:39] LABS: Glucose Point of Care 106 (65-105)
[2020-04-25] MEDS: ENOXAPARIN 60 MG/0.6 ML SYRINGE 55 MG SUB-Q (11:57)
[2020-04-25 12:13] LABS: Add Urine Microscopic? YES; Amorphous Sediment Urine Few; Appearance Urine Cloudy (Clear); Bilirubin Urine Negative (Negative); Blood Urine 3+ (Negative); Calcium Oxalate Crystals Urine Present /hpf; Color Urine Yellow (Yellow); Glucose Urine UA 1+ mg/dL (Negative); Ketones Urine Negative (Negative); Leukocyte Esterase Ur Trace LEU/UL (NEGATIVE); Mucus Urine Rare /lpf; Nitrate Urine Negative (Negative); Protein Urine 1+ mg/dL (Negative); RBC Urine >75 /hpf (0-2); Specific Grav Ur 1.021 (1.001-1.035); Squamous Epithelial Cell Urine Rare /hpf (Few); WBC Urine 31-50 /hpf (0-3)
--- NOTE | 2020-04-25 13:19 | PCDIET ---
Nutrition Follow-Up Complete: Nutrition Diagnosis: Inadequate oral intake related to respiratory failure as evidenced by NPO/clear liquid diet x 3 days. Nutrition Goal: Patient to meet estimated nutritional needs. Goal in progress. Vital 1.2 increased to 40mL/hr earlier today with goal of 65mL/hr. Residuals 150mL and below. Last recorded weight is 95.7 kg which is increased from last review. +I/O. Urine output somewhat improved with decrease in BUN/Creat. Bowel Motility: Smear BMs reported; MD informed. Labs Reviewed: Hgb (9.7), Hct (30.2), Glu (136), BUN (65), Cr (1.7), Mg (2.5), Alb (2.0), Brendan Ca (9.1) Meds Noted: Albuterol, Atrovent, Vancomycin, Fentanyl, Reglan, Primaxin, Versed, Levophed, Protonix, Novolog Additional Notes: Abrasions to lip and upper nose. No reported pressure sores. Will continue to monitor with same goal. Nutrition Monitoring and Evaluation: Follow up every Friday/Friday. Follow daily in ICU rounds.
--- NOTE | 2020-04-25 13:38 | PM.IMPN ---
Progress Note: A&P Assessment and Plan (1) Acute respiratory failure due to COVID-19: Code(s): U07.1 - COVID-19; J96.00 - Acute respiratory failure, unspecified whether with hypoxia or hypercapnia Status: Acute Assessment and Plan: Received dexamethasone, remdesivir and convalescent plasma. Was found to have a DVT, possible PE as well since he remains tachycardic, on full dose lovenox now. (2) Sepsis: Code(s): A41.9 - Sepsis, unspecified organism Status: Acute Assessment and Plan: Severe sepsis with shock thought to be secondary to COVID pneumonia but now with concern of superimposed bacterial PNA. On wide spectrum antibiotics imipenem and vancomycin. Sputum and blood cultures per critical care team. (3) Acute kidney injury: Code(s): N17.9 - Acute kidney failure, unspecified Status: Acute Assessment and Plan: acute kidney injury most likely related to hypotension, sepsis, infection will continue to monitor urine output, electrolytes and renal function (4) DVT prophylaxis: Code(s): Z29.9 - Encounter for prophylactic measures, unspecified Status: Acute Assessment and Plan: Full dose lovenox. Subjective Date/time seen: Remains intubated. 04/25/20 13:38 Exam Const: Other: Sedated and intubated Neck: Neck: no JVD Resp: Auscultation: rhonchi and diminished lung sounds Cardio: Rate: regular rate Rhythm: regular rhythm Other: Tachycardic. GI: Auscultation: normal bowel sounds Neuro: Other: Sedated, not following commands. Objective Data Vital Signs Vital Signs: Vital Signs - 24 hr 04/24/20 14:00 04/24/20 14:17 04/24/20 15:58 Temperature Pulse Rate 122 H 122 H 124 H Respiratory Rate 20 33 H 20 Blood Pressure 118/53 L Pulse Oximetry 98 99 04/24/20 16:00 04/24/20 16:57 04/24/20 17:31 Temperature 99 F Pulse Rate 125 H 121 H 124 H Respiratory Rate 24 H 24 H Blood Pressure 129/51 L Pulse Oximetry 95 96 04/24/20 18:00 04/24/20 20:00 04/24/20 20:11 Temperature 100.2 F H Pulse Rate 125 H 128 H 128 H Respiratory Rate 24 H 14 26 H Blood Pressure 118/46 L 131/49 L Pulse Oximetry 96 97 96 04/24/20 20:26 04/24/20 20:40 04/24/20 22:00 Temperature 100.2 F H Pulse Rate 122 H 125 H Respiratory Rate 27 H 23 H Blood Pressure 109/47 L Pulse Oximetry 97 04/24/20 23:27 04/25/20 00:00 04/25/20 01:08 Temperature 98.7 F Pulse Rate 121 H 126 H 112 H Respiratory Rate 22 H Blood Pressure 128/45 L Pulse Oximetry 99 100 04/25/20 02:00 04/25/20 02:39 04/25/20 02:52 Temperature Pulse Rate 116 H 112 H 114 H Respiratory Rate 19 28 H 27 H Blood Pressure 113/44 L Pulse Oximetry 99 100 04/25/20 03:46 04/25/20 03:48 04/25/20 03:49 Temperature Pulse Rate 112 H 112 H 118 H Respiratory Rate 18 Blood Pressure Pulse Oximetry 04/25/20 04:00 04/25/20 04:03 04/25/20 06:00 Temperature 97.9 F Pulse Rate 111 H 113 H 118 H Respiratory Rate 20 15 Blood Pressure 128/56 L 163/91 H Pulse Oximetry 100 97 94 04/25/20 06:09 04/25/20 07:29 04/25/20 07:30 Temperature Pulse Rate 118 H 122 H 120 H Respiratory Rate 15 14 15 Blood Pressure Pulse Oximetry 04/25/20 08:00 04/25/20 08:25 04/25/20 08:35 Temperature 99.1 F Pulse Rate 124 H 123 H 123 H Respiratory Rate 24 H 27 H 27 H Blood Pressure 129/53 L Pulse Oximetry 98 98 04/25/20 09:02 04/25/20 10:00 04/25/20 11:01 Temperature Pulse Rate 132 H 124 H 127 H Respiratory Rate 30 H 26 H Blood Pressure 128/48 L Pulse Oximetry 94 97 04/25/20 11:20 04/25/20 12:00 04/25/20 12:26 Temperature 99.1 F Pulse Rate 124 H 128 H 124 H Respiratory Rate 28 H 20 28 H Blood Pressure 121/46 L Pulse Oximetry 97 04/25/20 12:27 Temperature Pulse Rate 123 H Respiratory Rate 28 H Blood Pressure Pulse Oximetry Intake/Output Intake/Output: Intake & Output 04/22/20 04/23/2004/24/
[2020-04-25] MEDS: NOREPINEPHRINE 8 MG/D5W 250 ML 8 MG/250 ML BAG 5.6 MG IV CONT (16:34)
[2020-04-25 18:09] LABS: Glucose Point of Care 129 (65-105)
[2020-04-25] MEDS: ACETAMINOPHEN 325 MG TABLET 650 MG PO (19:49)
[2020-04-25] MEDS: ENOXAPARIN 100 MG/ML SYRINGE 95 MG SUB-Q (20:19)
[2020-04-25 23:16] LABS: Glucose Point of Care 104 (65-105)
[2020-04-26] VITALS (65 sets, daily range): BP systolic 77–164; BP diastolic 36–107; PULSE 113–139; RESP 16–29; TEMP 36.6–38.1; O2SAT 90–100
[2020-04-26] MEDS: IPRATROPIUM BR 0.02% INH SOLN 0.5 MG/2.5 ML VIAL INHALATION ×4 (01:54→20:55)
[2020-04-26] MEDS: ALBUTEROL SULFATE NEB 2.5 MG/0.5 ML INH INHALATION ×4 (01:54→20:55)
[2020-04-26 04:38] LABS: Hematocrit 29.5 % (42.0-52.0); Hemoglobin 9.6 g/dL (14.0-18.0); Mean Corpuscular HGB Conc 32.5 g/dl (32-36); Mean Corpuscular Hemoglobin 30.4 pg (26-34); Mean Corpuscular Volume 93.4 fl (80-100); Mean Platelet Volume 11.2 fl (7.4-10.4); Platelet Count Result 198 k/mm3 (150-375); Red Blood Count 3.16 M/mm3 (4.6-6.20); Red Cell Distribution Width 15.8 % (11.5-14.5); White Blood Count 22.4 K/mm3 (4.5-10.0)
[2020-04-26 04:49] LABS: Anion Gap 3 mmol/L (8-16); Blood Urea Nitrogen 68 mg/dL (9-20); Calcium 7.8 mg/dL (8.4-10.2); Carbon Dioxide 23 mmol/L (22-30); Chloride 116 mmol/L (98-107); Estimated CRCL calculation 32 ml/min; Estimated Glomerular Filt Rate 39; Glucose 172 mg/dL (75-110); Potassium 4.1 mmol/L (3.4-5.0); Sodium 142 mmol/L (137-145)
[2020-04-26 04:55] LABS: Alveolar/Arterial O2 Gradient 485.2 mmHg; Base Excess ABG -2.4 mEq/l (+/-2.0); Carboxyhemoglobin 0.3 % THb (0-2.0); Fractional Inspired Oxygen 80 %; HCO3 ABG 21.8 mEq/l (22.0-26.0); Methemoglobin ABG 0.3 %THb (0-1.5); Oxygen Content ABG 12.8 %vol (16.0-22.0); Oxyhemoglobin 83.4 % THb (90.0-100.0); PCO2 ABG 35.7 mmHg (35.0-45.0); Total Hemoglobin 10.9 g/dL (12.0-18.0); pH ABG 7.404 (7.350-7.450)
[2020-04-26 04:58] LABS: Device VENTILATOR; Modified Allen's Test Pass; Oxygen Saturation ABG 84.1 % (95.0-100.0); PO2 ABG 47.7 mmHg (80.0-100.0); Site Drawn RIGHT RADIAL
[2020-04-26 04:59] LABS: Arterial Blood Gas PEEP 10 cmH2O; Arterial Blood Gas Tidal Volume 450 ml; Arterial Blood Gas Vent Mode CMV; Arterial Blood Gas Ventilator rate 24 /MIN
[2020-04-26] MEDS: METOCLOPRAMIDE HCL INJ 10 MG/2 ML VIAL IV PUSH ×3 (05:03→16:49)
[2020-04-26] MEDS: CENTRAL LINE FLUSH 10 ML IV PUSH ×3 (05:03→22:00)
[2020-04-26 06:25] LABS: Alveolar/Arterial O2 Gradient 418.8 mmHg; Base Excess ABG -3.3 mEq/l (+/-2.0); Carboxyhemoglobin 0.3 % THb (0-2.0); Fractional Inspired Oxygen 70 %; HCO3 ABG 20.3 mEq/l (22.0-26.0); Methemoglobin ABG 0.4 %THb (0-1.5); Oxygen Content ABG 12.6 %vol (16.0-22.0); Oxyhemoglobin 82.1 % THb (90.0-100.0); PCO2 ABG 31.5 mmHg (35.0-45.0); PO2 FiO2 Ratio Arterial Blood 0.66 %; Reduced Hemoglobin 17.2 %THb (0-5.0); Total Hemoglobin 10.9 g/dL (12.0-18.0); pH ABG 7.427 (7.350-7.450)
[2020-04-26 06:28] LABS: Device VENTILATOR; Modified Allen's Test Unable to perform; Oxygen Saturation ABG 84.1 % (95.0-100.0); PO2 ABG 46.4 mmHg (80.0-100.0); Site Drawn RIGHT RADIAL
[2020-04-26 06:29] LABS: Arterial Blood Gas PEEP 10 cmH2O; Arterial Blood Gas Tidal Volume 450 ml; Arterial Blood Gas Vent Mode CMV; Arterial Blood Gas Ventilator rate 24 /MIN
[2020-04-26] MEDS: PROPOFOL IV EMULSION 100 ML 2.8 MG IV CONT (07:32)
[2020-04-26] MEDS: ACETAMINOPHEN 325 MG TABLET 650 MG PO (08:17)
[2020-04-26] MEDS: PANTOPRAZOLE SODIUM IV 40 MG VIAL IV PUSH (08:21)
[2020-04-26] MEDS: ENOXAPARIN 100 MG/ML SYRINGE 95 MG SUB-Q ×2 (08:21→20:00)
--- NOTE | 2020-04-26 09:10 | WPDINTPN ---
Progress Note: A&P Assessment and Plan (1) Acute respiratory failure due to COVID-19: Code(s): U07.1 - COVID-19; J96.00 - Acute respiratory failure, unspecified whether with hypoxia or hypercapnia Status: Acute Assessment and Plan: Acute respiratory failure secondary to COVID-19 pneumonia, SARS-CoV-2 PCR positive CXR worsen 04/12 with increased oxygen requirement hence transferred to ICU Patient is on Airborne, Droplet and Contact Isolation Patient on dexamethasone started 04/11 and completed 10 day course Remdesivir started 04/12 and course completed 04/12 Convalscent Plasma 1 unit Transfused - Patient was intubated on 04/23/2020, due to severe hypoxemia on ABG along with with decreased mental status 04/26/2020: Patient's oxygen requirements were increased over and currently on 100% FiO2. Patient also had elevated peak pressures and he was dyssynchronous with the ventilator. Switched patient to ASV mode of ventilation With better ventilator synchrony, improvement in peak pressure been adequate O2 sats. on 90% FiO2 monitoring inflammatory markers - CXR 04/26: Extensive ill-defined bilateral acute airspace disease, interval progression. (2) Sepsis: Code(s): A41.9 - Sepsis, unspecified organism Status: Acute Assessment and Plan: - leukocytosis along with fevers, tachycardia, could be developing underlying bacterial infection - continue imipenem and vancomycin - blood cultures negative x2 so far, urine and sputum cultures are pending - patient also hypotensive likely related to sedation and/or infection, along with acute kidney injury - continue Levophed to maintain mean arterial pressures > 65 mmHg - continues to tachycardic, lower extremity venous Doppler positive for left common femoral DVT. Started on therapeutic Lovenox. possible PE given hypertension and tachycardia, Given his renal dysfunction unable to obtain Chest CTA. Even if the patient has a PE, therapy would not be different at this time since he is on therapeutic Lovenox (3) Acute metabolic encephalopathy: Code(s): G93.41 - Metabolic encephalopathy Status: Resolved Assessment and Plan: worsening encephalopathy on 04/23/2020 likely secondary to hypoxemia. Patient currently intubated and sedated (4) Chest pain: Code(s): R07.9 - Chest pain, unspecified Status: Acute Assessment and Plan: Resolved - pleuritic and noncardiac in nature from history exam - EKG showed sinus tachycardia with no ST elevation - Troponin and CK-MB remained essentially flat (5) CHF (congestive heart failure): Code(s): I50.9 - Heart failure, unspecified Status: Acute Assessment and Plan: patient was given Lasix initially on presentation to ICU ECHO 04/13 showed diastolic dysfunction and elevated pulmonary pressure Summary 1. Left ventricular chamber dimension is normal. 2. Left ventricular systolic function is normal, estimated at 65-70%. 3. There is mildly increased left ventricular wall thickness. 4. The left ventricular diastolic function is grade I diastolic dysfunction. 5. Left atrial chamber dimension is mildly enlarged. 6. There is mild tricuspid valve regurgitation. 7. Mild pulmonary hypertension, estimated pulmonary arterial systolic pressure is 37 mmHg. 8. There is mild pulmonic regurgitation. Inferior Vena Cava - Dilated inferior vena cava with >50% collapse upon inspiration consistent with elevated right atrial pressure, 10 mmHg. (6) Urinary obstruction: Code(s): N13.9 - Obstructive and reflux uropathy, unspecified Status: Acute Assessment and Plan: nurses were unable to place Ross catheter. Urology was consulted and Ross placed 04/14 (7) Acute kidney injury: Code(s): N17.9 - Acute kidney failure, unspecified Status: Acute Assessment and Plan: acute kidney injury most likely related to hypotension, s
[2020-04-26] MEDS: polyethylene glycoL 3350 17 GM POWD.PACK PO (10:19)
[2020-04-26 10:21] LABS: Alveolar/Arterial O2 Gradient 518.6 mmHg; Base Excess ABG -5.1 mEq/l (+/-2.0); Fractional Inspired Oxygen 90 %; Oxygen Content ABG 16.1 %vol (16.0-22.0); Oxygen Saturation ABG 92.3 % (95.0-100.0); Oxyhemoglobin 91.4 % THb (90.0-100.0); PCO2 ABG 49.4 mmHg (35.0-45.0); PO2 ABG 72.5 mmHg (80.0-100.0); PO2 FiO2 Ratio Arterial Blood 0.81 %; Total Hemoglobin 12.5 g/dL (12.0-18.0)
[2020-04-26 10:25] LABS: Arterial Blood Gas PEEP 12 cmH2O; Arterial Blood Gas Vent Mode ASV; Device VENTILATOR; Modified Allen's Test Pass; Site Drawn RIGHT RADIAL; pH ABG 7.267 (7.350-7.450)
[2020-04-26 10:26] LABS: Arterial Blood Gas Minute Volume 9 LPM
--- NOTE | 2020-04-26 11:10 | PCDIET ---
ICU Rounding Note: Patient continues on Vital 1.2 which is advancing toward goal rate of 65mL/hr. Previously held for 215mL residual but now nearing goal rate at 60mL/hr. Last recorded weight is 93.1kg which is down from last review, despite -I/O. Bowel Motility: Small BM on 04/24/20. adding Miralax. Labs Reviewed: Hgb (9.6), Hct (29.5), Glu (172), BUN (68), Cr (1.7), Alb (2.0), Brendan Ca (9.4) Meds Noted: Albuterol, Primaxin, Protonix, Fentanyl, Novolog, Atrovent, Reglan, Vancomycin, Versed, Levophed, Miralax, Propofol (rate of 11.2mL/hr provides 296kcal, total of 2012kcal with tube feedings at goal - 22kcal/kg) Additional Notes: Nose abrasion. No pressure ulcers. Recommend continuing current tube feeding. Following daily in ICU rounds. Assessing/reassessing every Friday/Friday.
[2020-04-26 13:04] LABS: Glucose Point of Care 136 (65-105)
[2020-04-26] MEDS: SODIUM CHLORIDE 0.9% IV 500 ML IV CONT (13:25)
[2020-04-26] MEDS: PROPOFOL IV EMULSION 100 ML 16.8 MG IV CONT ×2 (13:36→19:40)
--- NOTE | 2020-04-26 13:52 | PM.IMPN ---
Progress Note: A&P Assessment and Plan (1) Acute respiratory failure due to COVID-19: Code(s): U07.1 - COVID-19; J96.00 - Acute respiratory failure, unspecified whether with hypoxia or hypercapnia Status: Acute Assessment and Plan: Received dexamethasone, remdesivir and convalescent plasma. Was found to have a DVT, possible PE as well since he remains tachycardic, on full dose lovenox now. Getting worse with higher Fi O2 requirements, poor prognosis. (2) Sepsis: Code(s): A41.9 - Sepsis, unspecified organism Status: Acute Assessment and Plan: Severe sepsis with shock thought to be secondary to COVID pneumonia but now with concern of superimposed bacterial PNA. On wide spectrum antibiotics imipenem and vancomycin. Sputum and blood cultures per critical care team. (3) Acute kidney injury: Code(s): N17.9 - Acute kidney failure, unspecified Status: Acute Assessment and Plan: acute kidney injury most likely related to hypotension, sepsis, infection will continue to monitor urine output, electrolytes and renal function (4) DVT prophylaxis: Code(s): Z29.9 - Encounter for prophylactic measures, unspecified Status: Acute Assessment and Plan: Full dose lovenox. Subjective Date/time seen: Remains intubated and tachycardic, Fi O 2 requirement went up to 100%. 04/26/20 13:52 Exam Const: Other: Sedated and intubated Neck: Neck: no JVD Resp: Auscultation: rhonchi and diminished lung sounds Cardio: Rate: regular rate Rhythm: regular rhythm Other: Tachycardic. GI: Auscultation: normal bowel sounds Neuro: Other: Sedated, not following commands. Objective Data Vital Signs Vital Signs: Vital Signs - 24 hr 04/25/20 14:00 04/25/20 14:30 04/25/20 14:34 Temperature Pulse Rate 124 H 125 H 125 H Respiratory Rate 24 H 30 H Blood Pressure 122/38 L Pulse Oximetry 97 96 04/25/20 14:45 04/25/20 16:00 04/25/20 17:15 Temperature 99.4 F Pulse Rate 125 H 127 H 123 H Respiratory Rate 30 H 20 Blood Pressure 96/40 L Pulse Oximetry 93 96 04/25/20 18:00 04/25/20 18:02 04/25/20 19:49 Temperature 99.4 F Pulse Rate 126 H 125 H Respiratory Rate 24 H 24 H Blood Pressure 115/41 L Pulse Oximetry 92 04/25/20 20:00 04/25/20 20:02 04/25/20 20:49 Temperature 99.4 F 98.9 F Pulse Rate 137 H 136 H Respiratory Rate 17 Blood Pressure 120/40 L Pulse Oximetry 90 97 04/25/20 22:00 04/25/20 22:45 04/25/20 23:13 Temperature Pulse Rate 113 H 110 H 125 H Respiratory Rate 17 22 H Blood Pressure 121/52 L Pulse Oximetry 93 91 04/26/20 00:00 04/26/20 01:56 04/26/20 01:57 Temperature 97.9 F Pulse Rate 122 H 121 H 125 H Respiratory Rate 17 28 H Blood Pressure 102/51 L Pulse Oximetry 91 100 04/26/20 02:00 04/26/20 02:04 04/26/20 02:16 Temperature Pulse Rate 125 H 126 H 125 H Respiratory Rate 19 29 H Blood Pressure 138/49 L 152/58 H Pulse Oximetry 96 04/26/20 04:00 04/26/20 04:15 04/26/20 04:16 Temperature 98.7 F Pulse Rate 113 H 120 H 120 H Respiratory Rate 17 23 H Blood Pressure 121/51 L 164/71 H Pulse Oximetry 91 04/26/20 04:38 04/26/20 05:00 04/26/20 05:33 Temperature Pulse Rate 122 H 120 H 119 H Respiratory Rate 22 H 20 Blood Pressure 128/107 H Pulse Oximetry 90 04/26/20 06:00 04/26/20 06:40 04/26/20 06:46 Temperature Pulse Rate 120 H 123 H 123 H Respiratory Rate 21 H 20 20 Blood Pressure 98/45 L 114/49 L Pulse Oximetry 96 91 04/26/20 06:48 04/26/20 07:32 04/26/20 07:46 Temperature Pulse Rate 123 H 131 H 129 H Respiratory Rate 20 28 H 27 H Blood Pressure Pulse Oximetry 04/26/20 08:00 04/26/20 08:17 04/26/20 08:18 Temperature 100.6 F H 100.6 F H Pulse Rate 127 H 126 H Respiratory Rate 24 H 25 H Blood Pressure 98/43 L Pulse Oximetry 99 04/26/20 08:19 04/26/20 08:23 04/26/20 08:28 Temperature Pulse Ra
[2020-04-26 16:52] LABS: Glucose Point of Care 120 (65-105)
[2020-04-26 18:05] LABS: Alveolar/Arterial O2 Gradient 504.6 mmHg; Base Excess ABG -4.3 mEq/l (+/-2.0); Fractional Inspired Oxygen 90 %; HCO3 ABG 22.2 mEq/l (22.0-26.0); Oxygen Saturation ABG 95.9 % (95.0-100.0); Oxyhemoglobin 94.7 % THb (90.0-100.0); PCO2 ABG 46.6 mmHg (35.0-45.0); PO2 ABG 89.3 mmHg (80.0-100.0); PO2 FiO2 Ratio Arterial Blood 0.99 %; Total Hemoglobin 11.2 g/dL (12.0-18.0); pH ABG 7.296 (7.350-7.450)
[2020-04-26 18:06] LABS: Arterial Blood Gas Vent Mode ASV; Device VENTILATOR; Modified Allen's Test Pass; Site Drawn RIGHT RADIAL
[2020-04-26 18:07] LABS: Arterial Blood Gas Minute Volume 9 LPM; Arterial Blood Gas PEEP 12 cmH2O
[2020-04-26] MEDS: NOREPINEPHRINE 8 MG/D5W 250 ML 8 MG/250 ML BAG 11.3 MG IV CONT (21:47)
[2020-04-26] MEDS: ACETAMINOPHEN ELIXIR 325 MG/10.15 ML UDC 650 MG PO (21:49)
[2020-04-27] VITALS (38 sets, daily range): BP systolic 95–144; BP diastolic 43–62; PULSE 101–134; RESP 22–30; TEMP 36.6–37.6; O2SAT 89–98
[2020-04-27] MEDS: METOCLOPRAMIDE HCL INJ 10 MG/2 ML VIAL IV PUSH ×4 (00:13→18:02)
[2020-04-27 00:16] LABS: Glucose Point of Care 133 (65-105)
[2020-04-27] MEDS: PROPOFOL IV EMULSION 100 ML 19.6 MG IV CONT ×2 (00:42→05:10)
[2020-04-27] MEDS: ALBUTEROL SULFATE NEB 2.5 MG/0.5 ML INH INHALATION ×4 (02:34→20:49)
[2020-04-27] MEDS: IPRATROPIUM BR 0.02% INH SOLN 0.5 MG/2.5 ML VIAL INHALATION ×4 (02:34→20:49)
[2020-04-27 04:21] LABS: Hematocrit 29.7 % (42.0-52.0); Hemoglobin 9.5 g/dL (14.0-18.0); Mean Corpuscular Hemoglobin 30.4 pg (26-34); Mean Corpuscular Volume 95.2 fl (80-100); Mean Platelet Volume 10.7 fl (7.4-10.4); Platelet Count Result 208 k/mm3 (150-375); Red Blood Count 3.12 M/mm3 (4.6-6.20); White Blood Count 22.5 K/mm3 (4.5-10.0)
[2020-04-27 05:03] LABS: Alveolar/Arterial O2 Gradient 426.1 mmHg; Carboxyhemoglobin 0.3 % THb (0-2.0); Fractional Inspired Oxygen 75 %; HCO3 ABG 21.8 mEq/l (22.0-26.0); Methemoglobin ABG 0.4 %THb (0-1.5); Oxygen Content ABG 13.4 %vol (16.0-22.0); Oxygen Saturation ABG 90.5 % (95.0-100.0); Oxyhemoglobin 89.4 % THb (90.0-100.0); PCO2 ABG 42.9 mmHg (35.0-45.0); PO2 ABG 63.1 mmHg (80.0-100.0); PO2 FiO2 Ratio Arterial Blood 0.84 %; Reduced Hemoglobin 9.9 %THb (0-5.0); Total Hemoglobin 10.6 g/dL (12.0-18.0); pH ABG 7.324 (7.350-7.450)
[2020-04-27 05:04] LABS: Device VENTILATOR; Modified Allen's Test Pass; Site Drawn RIGHT RADIAL
[2020-04-27 05:05] LABS: Arterial Blood Gas Minute Volume 120 LPM; Arterial Blood Gas PEEP 12 cmH2O; Arterial Blood Gas Vent Mode ASV
[2020-04-27 05:10] LABS: CRP 26.2 mg/dL (<1.0); Estimated CRCL calculation 29 ml/min; Estimated Glomerular Filt Rate 34
[2020-04-27 05:27] LABS: Anion Gap 5 mmol/L (8-16); Blood Urea Nitrogen 74 mg/dL (9-20); Calcium 8.1 mg/dL (8.4-10.2); Carbon Dioxide 24 mmol/L (22-30); Chloride 115 mmol/L (98-107); Glucose 138 mg/dL (75-110); Potassium 4.5 mmol/L (3.4-5.0); Sodium 144 mmol/L (137-145)
[2020-04-27] MEDS: CENTRAL LINE FLUSH 10 ML IV PUSH ×3 (06:18→21:03)
[2020-04-27] MEDS: DORNASE ALFA INH SOLN 1 MG/ML 2.5 ML AMP 2.5 MG INHALATION (08:47)
[2020-04-27] MEDS: PANTOPRAZOLE SODIUM IV 40 MG VIAL IV PUSH (09:08)
[2020-04-27] MEDS: ENOXAPARIN 100 MG/ML SYRINGE 95 MG SUB-Q ×2 (09:08→20:12)
[2020-04-27] MEDS: polyethylene glycoL 3350 17 GM POWD.PACK PO (09:08)
[2020-04-27] MEDS: PROPOFOL IV EMULSION 100 ML 16.8 MG IV CONT ×3 (10:31→21:10)
--- NOTE | 2020-04-27 10:55 | WPDINTPN ---
Progress Note: A&P Assessment and Plan (1) Acute respiratory failure due to COVID-19: Code(s): U07.1 - COVID-19; J96.00 - Acute respiratory failure, unspecified whether with hypoxia or hypercapnia Status: Acute Assessment and Plan: Acute respiratory failure secondary to COVID-19 pneumonia, SARS-CoV-2 PCR positive CXR worsen 04/12 with increased oxygen requirement hence transferred to ICU Patient is on Airborne, Droplet and Contact Isolation Patient on dexamethasone started 04/11 and completed 10 day course, Remdesivir started 04/12 and course completed, 04/12 Convalscent Plasma 1 unit Transfused - Patient was intubated on 04/23/2020, due to severe hypoxemia on ABG along with with decreased mental status - chest x-ray and ABGs reviewed - remains on ASV mode of ventilation, 75% FiO2, improvement in peak pressures this patient had elevated peak pressures on CMV and pressure control mode on 04/26/2020. - Sedated with fentanyl and Versed infusion, the sedation vacation and maintain RASS of 0 to -2 - CRP elevated to 26.2, (2) Sepsis: Code(s): A41.9 - Sepsis, unspecified organism Status: Acute Assessment and Plan: - leukocytosis along with fevers, tachycardia, could be developing underlying bacterial infection - continue imipenem and vancomycin - blood cultures negative x2 so far, urine and sputum cultures negative - patient also hypotensive likely related to sedation and/or infection, along with acute kidney injury - continue Levophed to maintain mean arterial pressures > 65 mmHg - continues to tachycardic, lower extremity venous Doppler positive for left common femoral DVT. Started on therapeutic Lovenox. possible PE given hypertension and tachycardia, Given his renal dysfunction unable to obtain Chest CTA. Even if the patient has a PE, therapy would not be different at this time since he is on therapeutic Lovenox (3) Acute metabolic encephalopathy: Code(s): G93.41 - Metabolic encephalopathy Status: Resolved Assessment and Plan: worsening encephalopathy on 04/23/2020 likely secondary to hypoxemia. Patient currently intubated and sedated (4) Chest pain: Code(s): R07.9 - Chest pain, unspecified Status: Acute Assessment and Plan: Resolved - pleuritic and noncardiac in nature from history exam - EKG showed sinus tachycardia with no ST elevation - Troponin and CK-MB remained essentially flat (5) CHF (congestive heart failure): Qualifiers: Heart failure type: diastolic Heart failure chronicity: unspecified Qualified Code(s): I50.30 - Unspecified diastolic (congestive) heart failure Code(s): I50.9 - Heart failure, unspecified Status: Acute Assessment and Plan: patient was given Lasix initially on presentation to ICU ECHO 04/13 showed diastolic dysfunction and elevated pulmonary pressure Summary 1. Left ventricular chamber dimension is normal. 2. Left ventricular systolic function is normal, estimated at 65-70%. 3. There is mildly increased left ventricular wall thickness. 4. The left ventricular diastolic function is grade I diastolic dysfunction. 5. Left atrial chamber dimension is mildly enlarged. 6. There is mild tricuspid valve regurgitation. 7. Mild pulmonary hypertension, estimated pulmonary arterial systolic pressure is 37 mmHg. 8. There is mild pulmonic regurgitation. Inferior Vena Cava - Dilated inferior vena cava with >50% collapse upon inspiration consistent with elevated right atrial pressure, 10 mmHg. (6) Urinary obstruction: Code(s): N13.9 - Obstructive and reflux uropathy, unspecified Status: Acute Assessment and Plan: nurses were unable to place Ross catheter. Urology was consulted and Ross placed 04/14 (7) Acute kidney injury: Code(s): N17.9 - Acute kidney failure, unspecified Status: Acute Assessment and Plan: acute kidney injury
--- NOTE | 2020-04-27 11:00 | PCDIET ---
ICU Rounding Note: Patient with fair tolerance to enteral feeding with residuals 300mL and below. Continues on Vital 1.2 with rate currently reduced to 40mL/hr due to some higher than expected residuals. Patient on Reglan and Miralax. Recommend continuing to advance rate as tolerated with goal of 55mL/hr if Propofol continues at present rate. Last recorded weight is 99.3kg which is increased from last review. +I/O. Bowel Motility: Last documented BM on 04/24/20. MD plans to add another medication if no BM today. Labs Reviewed: Hgb (9.5), Hct (29.7), BUN (74), Cr (1.9), Cl (115) Meds Noted: Albuterol, Fentanyl, Primaxin, Novolog, Atrovent, Reglan, Versed, Levophed, Protonix, Miralax, Vancomycin, Propofol (current rate of 19.6mL/hr provides 517kcal per 24 hours) Additional Notes: Nose abrasion but no other skin breakdown reported. Following daily in ICU rounds. Assessing/reassessing every Friday/Friday.
[2020-04-27 12:42] LABS: Glucose Point of Care 113 (65-105)
[2020-04-27] MEDS: ACETAMINOPHEN ELIXIR 325 MG/10.15 ML UDC 650 MG PO (13:45)
[2020-04-27 15:11] LABS: Vancomycin Trough 10.1 ug/mL (10.0-20.0)
[2020-04-27] MEDS: NOREPINEPHRINE 8 MG/D5W 250 ML 8 MG/250 ML BAG 7.5 MG IV CONT (15:42)
--- NOTE | 2020-04-27 16:46 | PM.IMPN ---
Progress Note: A&P Assessment and Plan (1) Acute respiratory failure due to COVID-19: Code(s): U07.1 - COVID-19; J96.00 - Acute respiratory failure, unspecified whether with hypoxia or hypercapnia Status: Acute Assessment and Plan: Received dexamethasone, remdesivir and convalescent plasma. Was found to have a DVT 04/25 , possible PE as well since he remains tachycardic, on full dose lovenox now. Getting worse with higher Fi O2 requirements, poor prognosis. (2) Sepsis: Code(s): A41.9 - Sepsis, unspecified organism Status: Acute Assessment and Plan: Severe sepsis with shock thought to be secondary to COVID pneumonia but now with concern of superimposed bacterial PNA. On wide spectrum antibiotics imipenem and vancomycin. day 4. Sputum and blood cultures per critical care team. (3) Acute kidney injury: Code(s): N17.9 - Acute kidney failure, unspecified Status: Acute Assessment and Plan: acute kidney injury most likely related to hypotension, sepsis, infection will continue to monitor urine output, electrolytes and renal function creatinine 1.9 today (4) DVT prophylaxis: Code(s): Z29.9 - Encounter for prophylactic measures, unspecified Status: Acute Assessment and Plan: Full dose lovenox. (5) CHF (congestive heart failure): Qualifiers: Heart failure type: diastolic Heart failure chronicity: unspecified Qualified Code(s): I50.30 - Unspecified diastolic (congestive) heart failure Code(s): I50.9 - Heart failure, unspecified Status: Acute Assessment and Plan: History of diastolic heart failure with echo ejection fraction of 65% Subjective Date/time seen: 04/27/20 16:46 Interval history: date of visit 04/27. Pt is a 80-year-old male here for COVID-19 pneumonia. Pt had a rapid response and was transferred to icu for desaturation. Pt recived plasma , remdesivir and iv dexamethasone. intubated 04/23 and currently sedated and mechanically ventilated, Exam Narrative: Exam Narrative: blood pressure 108/54 pulse is 110 saturating 92% on ventilator with FiO2 of 75% and 5 of peep pupils equal reactive to light sclera anicteric lungs shallow distant breath sounds CV tachy no murmurs abdomen is soft nontender no masses extremities without edema distal pulses 0 to 1+ neuro sedated Objective Data Vital Signs Vital Signs: Vital Signs - 24 hr 04/26/20 17:15 04/26/20 18:00 04/26/20 19:37 Temperature Pulse Rate 122 H 123 H 128 H Respiratory Rate 23 H 24 H Blood Pressure 110/45 L Pulse Oximetry 100 100 04/26/20 19:40 04/26/20 20:00 04/26/20 20:55 Temperature 37.1 C Pulse Rate 128 H 126 H 129 H Respiratory Rate 24 H 25 H 25 H Blood Pressure 132/54 L Pulse Oximetry 100 04/26/20 20:56 04/26/20 21:17 04/26/20 21:47 Temperature Pulse Rate 128 H 129 H Respiratory Rate 25 H Blood Pressure 125/46 L Pulse Oximetry 100 04/26/20 21:49 04/26/20 22:00 04/26/20 22:49 Temperature 37.7 C H 37.7 C H 37.6 C Pulse Rate 126 H Respiratory Rate 26 H Blood Pressure 149/58 H Pulse Oximetry 99 04/26/20 23:05 04/27/20 00:00 04/27/20 00:42 Temperature 37.2 C Pulse Rate 125 H 122 H 123 H Respiratory Rate 26 H 24 H Blood Pressure 95/47 L Pulse Oximetry 97 97 04/27/20 02:00 04/27/20 02:35 04/27/20 02:36 Temperature Pulse Rate 120 H 120 H 121 H Respiratory Rate 24 H 24 H Blood Pressure 125/49 L Pulse Oximetry 98 98 04/27/20 04:00 04/27/20 04:09 04/27/20 05:07 Temperature 36.6 C Pulse Rate 119 H 116 H 122 H Respiratory Rate 28 H 24 H Blood Pressure 144/57 H Pulse Oximetry 93 95 04/27/20 05:10 04/27/20 06:00 04/27/20 06:19 Temperature Pulse Rate 121 H 117 H 117 H Respiratory Rate 29 H 26 H 25 H Blood Pressure 116/46 L 116/46 L Pulse Oximetry 93 04/27/20 08:00 04/27/20 08:30 04/27/20 08:48 Temperature Pulse Rate 114 H
[2020-04-27 19:15] LABS: Glucose Point of Care 171 (65-105)
[2020-04-28] VITALS (30 sets, daily range): BP systolic 113–141; BP diastolic 40–72; PULSE 94–114; RESP 22–34; TEMP 36.3–37.2; O2SAT 88–95
[2020-04-28] MEDS: METOCLOPRAMIDE HCL INJ 10 MG/2 ML VIAL IV PUSH ×5 (00:22→23:19)
[2020-04-28 00:41] LABS: Glucose Point of Care 107 (65-105)
[2020-04-28] MEDS: ALBUTEROL SULFATE NEB 2.5 MG/0.5 ML INH INHALATION ×4 (02:50→21:05)
[2020-04-28] MEDS: IPRATROPIUM BR 0.02% INH SOLN 0.5 MG/2.5 ML VIAL INHALATION ×4 (02:50→21:05)
[2020-04-28] MEDS: PROPOFOL IV EMULSION 100 ML 16.8 MG IV CONT ×3 (03:05→15:03)
[2020-04-28 04:43] LABS: Hematocrit 28.9 % (42.0-52.0); Hemoglobin 9.2 g/dL (14.0-18.0); Mean Corpuscular HGB Conc 31.8 g/dl (32-36); Mean Corpuscular Hemoglobin 30.2 pg (26-34); Mean Corpuscular Volume 94.8 fl (80-100); Mean Platelet Volume 11.3 fl (7.4-10.4); Platelet Count Result 190 k/mm3 (150-375); Red Blood Count 3.05 M/mm3 (4.6-6.20); Red Cell Distribution Width 15.9 % (11.5-14.5); White Blood Count 23.9 K/mm3 (4.5-10.0)
[2020-04-28 04:54] LABS: Anion Gap 4 mmol/L (8-16); Blood Urea Nitrogen 81 mg/dL (9-20); Calcium 8.2 mg/dL (8.4-10.2); Carbon Dioxide 24 mmol/L (22-30); Chloride 113 mmol/L (98-107); Estimated CRCL calculation 33 ml/min; Estimated Glomerular Filt Rate 34; Glucose 126 mg/dL (75-110); Potassium 4.4 mmol/L (3.4-5.0); Sodium 141 mmol/L (137-145)
[2020-04-28 05:00] LABS: Alveolar/Arterial O2 Gradient 528.6 mmHg; Base Excess ABG -3.8 mEq/l (+/-2.0); Carboxyhemoglobin 0.3 % THb (0-2.0); Device VENTILATOR; Fractional Inspired Oxygen 90 %; HCO3 ABG 22.6 mEq/l (22.0-26.0); Methemoglobin ABG 0.4 %THb (0-1.5); Modified Allen's Test Pass; Oxygen Content ABG 13.1 %vol (16.0-22.0); Oxygen Saturation ABG 90.5 % (95.0-100.0); Oxyhemoglobin 90.1 % THb (90.0-100.0); PO2 ABG 64.9 mmHg (80.0-100.0); PO2 FiO2 Ratio Arterial Blood 0.72 %; Reduced Hemoglobin 9.2 %THb (0-5.0); Site Drawn RIGHT RADIAL; Total Hemoglobin 10.3 g/dL (12.0-18.0)
[2020-04-28 05:01] LABS: Arterial Blood Gas Minute Volume 120 LPM; Arterial Blood Gas PEEP 12 cmH2O; Arterial Blood Gas Vent Mode ASV
[2020-04-28] MEDS: CENTRAL LINE FLUSH 10 ML IV PUSH ×3 (05:36→20:46)
[2020-04-28] MEDS: ENOXAPARIN 100 MG/ML SYRINGE 95 MG SUB-Q ×2 (08:45→20:45)
[2020-04-28] MEDS: PANTOPRAZOLE SODIUM IV 40 MG VIAL IV PUSH (08:46)
[2020-04-28] MEDS: DORNASE ALFA INH SOLN 1 MG/ML 2.5 ML AMP 2.5 MG INHALATION ×2 (08:46→21:05)
[2020-04-28] MEDS: polyethylene glycoL 3350 17 GM POWD.PACK PO (08:46)
--- NOTE | 2020-04-28 11:23 | PCDIET ---
Nutrition Follow-Up Complete: Nutrition Diagnosis: Inadequate oral intake related to respiratory failure as evidenced by NPO/clear liquid diet x 3 days. Nutrition Goal: Patient to meet estimated nutritional needs. Goal met. Patient tolerating Vital 1.2 at 55mL/hr with residuals 240mL and below. Last recorded weight is 100.2 kg which is increased from last review. +I/O. Bowel Motility: No new BM - patient on Miralax. Labs Reviewed: Hgb (9.2), Hct (28.9), BUN (81), Cr (1.9), Glu (126), Ca (8.2), Cl (113) Meds Noted: Reglan, Albuterol, Fentanyl, Primaxin, Novolog, Atrovent, Vancomycin, Versed, Levophed, Protonix, Miralax, Propofol at 16.8mL/hr (444kcal over 24 hours/day) Additional Notes: No skin breakdown reported. Will continue to monitor with same goal. Nutrition Monitoring and Evaluation: Follow up every Friday/Friday. Follow daily in ICU rounds.
--- NOTE | 2020-04-28 12:43 | WPDINTPN ---
Progress Note: A&P Assessment and Plan (1) Acute respiratory failure due to COVID-19: Code(s): U07.1 - COVID-19; J96.00 - Acute respiratory failure, unspecified whether with hypoxia or hypercapnia Status: Acute Assessment and Plan: Acute respiratory failure secondary to COVID-19 pneumonia, SARS-CoV-2 PCR positive CXR worsen 04/12 with increased oxygen requirement hence transferred to ICU Patient is on Airborne, Droplet and Contact Isolation Patient on dexamethasone started 04/11 and completed 10 day course, Remdesivir started 04/12 and course completed, 04/12 Convalscent Plasma 1 unit Transfused - Patient was intubated on 04/23/2020, due to severe hypoxemia on ABG along with with decreased mental status - chest x-ray and ABGs reviewed - remains on ASV mode of ventilation, O2 requirements increased overnight and now on 90% FiO2. Patient switched back to CMV mode of ventilation, peep of 12, 90% FiO2. Peak pressure is much improved. - sedated with propofol, the sedation vacation and maintain RASS of 0 to -2 - CRP elevated to 26.2, - continue Pulmozyme (2) Sepsis: Code(s): A41.9 - Sepsis, unspecified organism Status: Acute Assessment and Plan: - leukocytosis along with fevers, tachycardia, could be developing underlying bacterial infection - continue imipenem and vancomycin - blood cultures negative x2 so far, urine and sputum cultures negative - patient also hypotensive likely related to sedation and/or infection, along with acute kidney injury - continue Levophed to maintain mean arterial pressures > 65 mmHg - continues to tachycardic, lower extremity venous Doppler positive for left common femoral DVT. Started on therapeutic Lovenox. possible PE given hypertension and tachycardia, Given his renal dysfunction unable to obtain Chest CTA. Even if the patient has a PE, therapy would not be different at this time since he is on therapeutic Lovenox (3) Acute metabolic encephalopathy: Code(s): G93.41 - Metabolic encephalopathy Status: Resolved Assessment and Plan: worsening encephalopathy on 04/23/2020 likely secondary to hypoxemia. Patient currently intubated and sedated (4) Chest pain: Code(s): R07.9 - Chest pain, unspecified Status: Acute Assessment and Plan: Resolved - pleuritic and noncardiac in nature from history exam - EKG showed sinus tachycardia with no ST elevation - Troponin and CK-MB remained essentially flat (5) CHF (congestive heart failure): Qualifiers: Heart failure type: diastolic Heart failure chronicity: unspecified Qualified Code(s): I50.30 - Unspecified diastolic (congestive) heart failure Code(s): I50.9 - Heart failure, unspecified Status: Acute Assessment and Plan: patient was given Lasix initially on presentation to ICU ECHO 04/13 showed diastolic dysfunction and elevated pulmonary pressure Summary 1. Left ventricular chamber dimension is normal. 2. Left ventricular systolic function is normal, estimated at 65-70%. 3. There is mildly increased left ventricular wall thickness. 4. The left ventricular diastolic function is grade I diastolic dysfunction. 5. Left atrial chamber dimension is mildly enlarged. 6. There is mild tricuspid valve regurgitation. 7. Mild pulmonary hypertension, estimated pulmonary arterial systolic pressure is 37 mmHg. 8. There is mild pulmonic regurgitation. Inferior Vena Cava - Dilated inferior vena cava with >50% collapse upon inspiration consistent with elevated right atrial pressure, 10 mmHg. (6) Urinary obstruction: Code(s): N13.9 - Obstructive and reflux uropathy, unspecified Status: Acute Assessment and Plan: nurses were unable to place Ross catheter. Urology was consulted and Ross placed 04/14 (7) Acute kidney injury: Code(s): N17.9 - Acute kidney failure, unspecified Status: Acute Assess
[2020-04-28 13:57] LABS: Glucose Point of Care 109 (65-105)
--- NOTE | 2020-04-28 17:34 | PM.IMPN ---
Progress Note: A&P Assessment and Plan (1) Acute respiratory failure due to COVID-19: Code(s): U07.1 - COVID-19; J96.00 - Acute respiratory failure, unspecified whether with hypoxia or hypercapnia Status: Acute Assessment and Plan: Received dexamethasone, remdesivir and convalescent plasma. Was found to have a DVT 04/25 , possible PE as well since he remains tachycardic, on full dose lovenox now. Getting worse with higher Fi O2 requirements, poor prognosis. Family may withdrawal support 04/29 (2) Sepsis: Code(s): A41.9 - Sepsis, unspecified organism Status: Acute Assessment and Plan: Severe sepsis with shock thought to be secondary to COVID pneumonia but now with concern of superimposed bacterial PNA. On wide spectrum antibiotics imipenem and vancomycin. day 5. Sputum and blood cultures per critical care team. (3) Acute kidney injury: Code(s): N17.9 - Acute kidney failure, unspecified Status: Acute Assessment and Plan: acute kidney injury most likely related to hypotension, sepsis, infection will continue to monitor urine output, electrolytes and renal function creatinine 1.9 again today (4) DVT prophylaxis: Code(s): Z29.9 - Encounter for prophylactic measures, unspecified Status: Acute Assessment and Plan: Full dose lovenox. (5) CHF (congestive heart failure): Qualifiers: Heart failure type: diastolic Heart failure chronicity: unspecified Qualified Code(s): I50.30 - Unspecified diastolic (congestive) heart failure Code(s): I50.9 - Heart failure, unspecified Status: Acute Assessment and Plan: History of diastolic heart failure with echo ejection fraction of 65% Subjective Date/time seen: 04/28/20 17:34 Interval history: date of visit 04/28. Pt is a 80-year-old male here for COVID-19 pneumonia. Pt was transferred to icu for desaturation. Pt recived plasma , remdesivir and iv dexamethasone. intubated 04/23 and currently sedated and mechanically ventilated, Exam Narrative: Exam Narrative: blood pressure 124/72 pulse is 100 saturating 94% on ventilator with FiO2 of 90% and 12 of peep pupils equal reactive to light sclera anicteric lungs shallow distant breath sounds CV tachy no murmurs abdomen is soft nontender no masses extremities without edema distal pulses 0 to 1+ neuro sedated Objective Data Vital Signs Vital Signs: Vital Signs - 24 hr 04/27/20 17:51 04/27/20 18:00 04/27/20 20:00 Temperature 37.1 C Pulse Rate 105 H 106 H 107 H Respiratory Rate 28 H 29 H Blood Pressure 120/51 L 109/47 L Pulse Oximetry 91 90 04/27/20 20:40 04/27/20 20:51 04/27/20 21:10 Temperature Pulse Rate 107 H 105 H 105 H Respiratory Rate 27 H 27 H 28 H Blood Pressure Pulse Oximetry 91 04/27/20 22:00 04/27/20 23:00 04/28/20 00:00 Temperature 37.2 C Pulse Rate 106 H 101 H 103 H Respiratory Rate 28 H 26 H Blood Pressure 122/43 L 113/42 L Pulse Oximetry 92 90 90 04/28/20 02:00 04/28/20 02:51 04/28/20 04:00 Temperature 36.6 C Pulse Rate 114 H 105 H 109 H Respiratory Rate 29 H 22 H 27 H Blood Pressure 138/52 L 141/46 H Pulse Oximetry 93 93 92 04/28/20 04:46 04/28/20 05:37 04/28/20 06:00 Temperature Pulse Rate 104 H 104 H Respiratory Rate 28 H Blood Pressure 132/42 L 127/44 L Pulse Oximetry 92 93 04/28/20 08:00 04/28/20 08:33 04/28/20 08:34 Temperature 36.5 C Pulse Rate 102 H 100 103 H Respiratory Rate 28 H 30 H Blood Pressure 135/42 L Pulse Oximetry 93 94 04/28/20 08:46 04/28/20 09:12 04/28/20 10:00 Temperature Pulse Rate 105 H 100 99 Respiratory Rate 29 H 28 H Blood Pressure 123/45 L Pulse Oximetry 93 93 04/28/20 11:25 04/28/20 12:00 04/28/20 14:00 Temperature 36.3 C L Pulse Rate 97 97 95 Respiratory Rate 27 H 29 H Blood Pressure 121/40 L 119/43 L Pulse Oximetry 94 93 93 04/28/20 14:11 04/28/20 14:15
[2020-04-28 17:36] LABS: Glucose Point of Care 121 (65-105)
[2020-04-28] MEDS: PROPOFOL IV EMULSION 100 ML 19.6 MG IV CONT (20:45)
[2020-04-28 23:44] LABS: Glucose Point of Care 112 (65-105)
[2020-04-29] VITALS (17 sets, daily range): BP systolic 100–134; BP diastolic 30–53; PULSE 33–114; RESP 25–33; TEMP 36–37.7; O2SAT 87–96
[2020-04-29] MEDS: PROPOFOL IV EMULSION 100 ML 22.3 MG IV CONT (02:00)
[2020-04-29] MEDS: ACETAMINOPHEN ELIXIR 325 MG/10.15 ML UDC 650 MG PO (02:02)
[2020-04-29 03:32] LABS: Alveolar/Arterial O2 Gradient 563.5 mmHg; Base Excess ABG -5.1 mEq/l (+/-2.0); Carboxyhemoglobin 0.3 % THb (0-2.0); Fractional Inspired Oxygen 95 %; HCO3 ABG 22.2 mEq/l (22.0-26.0); Methemoglobin ABG 0.4 %THb (0-1.5); Oxygen Content ABG 11.7 %vol (16.0-22.0); Oxygen Saturation ABG 87.4 % (95.0-100.0); Oxyhemoglobin 87.5 % THb (90.0-100.0); PCO2 ABG 51.7 mmHg (35.0-45.0); PO2 ABG 61.5 mmHg (80.0-100.0); PO2 FiO2 Ratio Arterial Blood 0.65 %; Reduced Hemoglobin 11.8 %THb (0-5.0); Total Hemoglobin 9.5 g/dL (12.0-18.0)
[2020-04-29 03:33] LABS: Site Drawn RIGHT BRACHIAL
[2020-04-29 03:34] LABS: Device VENTILATOR
[2020-04-29 03:35] LABS: Arterial Blood Gas PEEP 12 cmH2O; Arterial Blood Gas Tidal Volume 500 ml; Arterial Blood Gas Vent Mode CMV; Arterial Blood Gas Ventilator rate 24 /MIN
[2020-04-29] MEDS: METOCLOPRAMIDE HCL INJ 10 MG/2 ML VIAL IV PUSH (05:03)
[2020-04-29] MEDS: CENTRAL LINE FLUSH 10 ML IV PUSH (05:04)
[2020-04-29 06:02] LABS: Basophils Percent Auto 0.2 % (0.2-1.2); Eosinophils Absolute Auto 0.1 K/mm3 (0-0.3); Eosinophils Percent Auto 0.8 % (0-4.4); Hematocrit 26.8 % (42.0-52.0); Hemoglobin 8.5 g/dL (14.0-18.0); Immature Granulocyte Absolute 0.19 K/mm3 (0.00-0.031); Lymphocytes Absolute Auto 0.43 K/mm3 (0.9-3.2); Lymphocytes Percent Auto 2.4 % (18.3-44.2); Mean Corpuscular HGB Conc 31.7 g/dl (32-36); Mean Corpuscular Hemoglobin 30.6 pg (26-34); Mean Corpuscular Volume 96.4 fl (80-100); Mean Platelet Volume 11.6 fl (7.4-10.4); Monocytes Absolute Auto 0.7 K/mm3 (0.1-0.6); Monocytes Percent Auto 3.9 % (2.6-8.5); Neutrophils Absolute Auto 16.8 K/mm3 (1.3-6.7); Neutrophils Percent Auto 91.7 % (45.5-73.1); Platelet Count Result 178 k/mm3 (150-375); Red Blood Count 2.78 M/mm3 (4.6-6.20); Red Cell Distribution Width 16.1 % (11.5-14.5); White Blood Count 18.3 K/mm3 (4.5-10.0)
[2020-04-29] MEDS: PROPOFOL IV EMULSION 100 ML 19.6 MG IV CONT (06:15)
[2020-04-29 06:24] LABS: Alanine Aminotransferase 17 U/L (4-50); Alkaline Phosphatase 80 U/L (38-126); Anion Gap 6 mmol/L (8-16); Aspartate Amino Transferase 23 U/L (17-59); Bilirubin,Total 0.1 mg/dL (0.2-1.3); Blood Urea Nitrogen 95 mg/dL (9-20); CRP 23.9 mg/dL (<1.0); Calcium 8.2 mg/dL (8.4-10.2); Carbon Dioxide 24 mmol/L (22-30); Chloride 110 mmol/L (98-107); Estimated CRCL calculation 30 ml/min; Estimated Glomerular Filt Rate 31; Glucose 186 mg/dL (75-110); Magnesium 2.8 mg/dL (1.6-2.3); Phosphorus 6.7 mg/dL (2.5-4.5); Potassium 4.9 mmol/L (3.4-5.0); Sodium 140 mmol/L (137-145)
[2020-04-29] MEDS: ALBUTEROL SULFATE NEB 2.5 MG/0.5 ML INH INHALATION (09:26)
[2020-04-29] MEDS: IPRATROPIUM BR 0.02% INH SOLN 0.5 MG/2.5 ML VIAL INHALATION (09:27)
[2020-04-29] MEDS: DORNASE ALFA INH SOLN 1 MG/ML 2.5 ML AMP 2.5 MG INHALATION (09:27)
[2020-04-29] MEDS: SODIUM CHLORIDE 0.9% INJ 10 ML (09:38)
[2020-04-29] MEDS: polyethylene glycoL 3350 17 GM POWD.PACK PO (09:38)
[2020-04-29] MEDS: PANTOPRAZOLE SODIUM IV 40 MG VIAL IV PUSH (09:38)
[2020-04-29] MEDS: ENOXAPARIN 100 MG/ML SYRINGE 95 MG SUB-Q (09:39)
--- NOTE | 2020-04-29 11:32 | WPDINTPN ---
Progress Note: A&P Assessment and Plan (1) Acute respiratory failure due to COVID-19: Code(s): U07.1 - COVID-19; J96.00 - Acute respiratory failure, unspecified whether with hypoxia or hypercapnia Status: Acute Assessment and Plan: Acute respiratory failure secondary to COVID-19 pneumonia, SARS-CoV-2 PCR positive CXR worsen 04/12 with increased oxygen requirement hence transferred to ICU Patient is on Airborne, Droplet and Contact Isolation Patient on dexamethasone started 04/11 and completed 10 day course, Remdesivir started 04/12 and course completed, 04/12 Convalscent Plasma 1 unit Transfused - Patient was intubated on 04/23/2020, due to severe hypoxemia on ABG along with with decreased mental status - chest x-ray and ABGs reviewed - patient on CMV mode of ventilation, 95% FiO2 and PEEP of 12. - patient off all sedation, - CRP elevated to 26.2, - continue Pulmozyme (2) Sepsis: Code(s): A41.9 - Sepsis, unspecified organism Status: Acute Assessment and Plan: - leukocytosis along with fevers, tachycardia, could be developing underlying bacterial infection - continue imipenem and vancomycin - blood cultures negative x2 so far, urine and sputum cultures negative - patient also hypotensive likely related to sedation and/or infection, along with acute kidney injury - continue Levophed to maintain mean arterial pressures > 65 mmHg - continues to tachycardic, lower extremity venous Doppler positive for left common femoral DVT. Started on therapeutic Lovenox. possible PE given hypertension and tachycardia, Given his renal dysfunction unable to obtain Chest CTA. Even if the patient has a PE, therapy would not be different at this time since he is on therapeutic Lovenox (3) Acute metabolic encephalopathy: Code(s): G93.41 - Metabolic encephalopathy Status: Resolved Assessment and Plan: worsening encephalopathy on 04/23/2020 likely secondary to hypoxemia. Patient currently intubated and sedated (4) Chest pain: Code(s): R07.9 - Chest pain, unspecified Status: Acute Assessment and Plan: Resolved - pleuritic and noncardiac in nature from history exam - EKG showed sinus tachycardia with no ST elevation - Troponin and CK-MB remained essentially flat (5) CHF (congestive heart failure): Qualifiers: Heart failure type: diastolic Heart failure chronicity: unspecified Qualified Code(s): I50.30 - Unspecified diastolic (congestive) heart failure Code(s): I50.9 - Heart failure, unspecified Status: Acute Assessment and Plan: patient was given Lasix initially on presentation to ICU ECHO 04/13 showed diastolic dysfunction and elevated pulmonary pressure Summary 1. Left ventricular chamber dimension is normal. 2. Left ventricular systolic function is normal, estimated at 65-70%. 3. There is mildly increased left ventricular wall thickness. 4. The left ventricular diastolic function is grade I diastolic dysfunction. 5. Left atrial chamber dimension is mildly enlarged. 6. There is mild tricuspid valve regurgitation. 7. Mild pulmonary hypertension, estimated pulmonary arterial systolic pressure is 37 mmHg. 8. There is mild pulmonic regurgitation. Inferior Vena Cava - Dilated inferior vena cava with >50% collapse upon inspiration consistent with elevated right atrial pressure, 10 mmHg. (6) Urinary obstruction: Code(s): N13.9 - Obstructive and reflux uropathy, unspecified Status: Acute Assessment and Plan: nurses were unable to place Ross catheter. Urology was consulted and Ross placed 04/14 (7) Acute kidney injury: Code(s): N17.9 - Acute kidney failure, unspecified Status: Acute Assessment and Plan: acute kidney injury most likely related to hypotension, sepsis, infection - patient adequately fluid-resuscitated. Currently off all IV fluids - creatinine stab
[2020-04-29] MEDS: MORPHINE SULFATE 4 MG/ML INJ 5 MG IV PUSH (13:04)
--- NOTE | 2020-05-04 09:07 | PM.PROC ---
Procedure Note - Detailed Date of procedure: 05/04/20 Pre-op diagnosis: Fever and cough. Post-op diagnosis: same Procedure performed: Bedside urethral dilatation and Ross catheter placement Description of procedure: At the bedside I identified a mid-penile hypospadius with a slight distal stricture The stricture I dilated with fillaforms and followers to 20F and placed a 16F Coude catheter. Anesthesia: local Surgeon: Babatunde Ashford MD Drains: Yes (16F Ross) Packing: No Pathology: none sent Condition: stable Disposition: ICU
--- NOTE | 2020-05-04 10:04 | P.DN_ITS ---
Discharge Sum: Prov Provider Primary care physician: Sabra Tejada, Admitting provider: Hien Tran MD Consults: 04/12/20 Consult to Physician Routine Comment: Consulting Provider: Andre Starks Reason for consultation: rapid transfer Has provider been notified: Yes 04/14/20 Consult to Physician Routine Comment: Consulting Provider: Benny Jay pitting machine operator/MD group to consult: Urology Reason for consultation: Obstruction Has provider been notified: Yes Discharge Sum: Diag Contributing Factors (1) Acute respiratory failure due to COVID-19: (2) Sepsis: (3) Acute kidney injury: (4) CHF (congestive heart failure): Discharge Sum: Summary Date and Time Date of admission: 04/11/20 10:49 Summary Details: 80-year-old white male admitted pneumonia and respiratory failure. He was COVID positive and progressed to mechanical ventilation despite remdesivir rx, dexamethasone, and convalescent plasma. There was suspicion for pulmonary emboli and he was treated with full-dose Lovenox. there was suspicion for superimposed bacterial pneumonia and was treated with cefepime, vancomycin, and zithromyacin for 6 days prior to his demise. despite all of the above interventions he continued to deteriorate which were requiring 90-100% FiO2 on the ventilator. With is extremely low prognosis is family decided to withdrawal support and he shortly thereafter. Cause of respiratory failure secondary to COVID pneumonia Additional Data Attending physician: Ross Golden MD
== END 2020-04-29 13:18 | disposition expired | DRG 870 ==
LOC: ANHED 11:40 → ANH3MEDSUR 13:11 → ANHICU 04-16 11:59 → ANH3MEDSUR 05-01 14:44 → ANHICU 05-01 14:44
PROVIDERS: Family Medicine; Internal Medicine; Physician Assistant; Admitting Provider Family Medicine; Emergency Provider Emergency Medicine; PCP Family Medicine; Visit Provider Internal Medicine
DX: A41.89 Other specified sepsis (principal); J12.89 Other viral pneumonia; U07.1 COVID-19; G93.41 Metabolic encephalopathy; J96.01 Acute respiratory failure with hypoxia; I50.31 Acute diastolic (congestive) heart failure; N17.9 Acute kidney failure, unspecified; I82.611 Acute embolism and thrombosis of superficial veins of right upper extremity; I82.412 Acute embolism and thrombosis of left femoral vein; N40.0 Benign prostatic hyperplasia without lower urinary tract symptoms; N13.9 Obstructive and reflux uropathy, unspecified; R91.8 Other nonspecific abnormal finding of lung field; D72.829 Elevated white blood cell count, unspecified; G47.33 Obstructive sleep apnea (adult) (pediatric); L40.9 Psoriasis, unspecified; G20 Parkinson's disease; Z96.652 Presence of left artificial knee joint; Z87.891 Personal history of nicotine dependence; Q54.9 Hypospadias, unspecified
CPT/HCPCS: 31500; 36415; 36430; 36569; 36600; 71045; 80048; 80053; 80076; 80202; 80307; 81001; 82140; 82375; 82550; 82553; 82565; 82728; 82805; 83050; 83605; 83615; 83735; 83880; 84100; 84145; 84443; 84460; 84484; 85025; 85027; 85380; 85610; 85730; 86140; 86850; 86900; 86901; 87040; 87070; 87086; 87205; 87635; 93005; 93306; 93970; 94002; 94003; 94640; 94660; 96365; 96366; 96367; 96372; 96375; 96376; 99285; A9270; C1751; C9113; C9803; G0378; J0131; J0456; J0696; J0743; J1100; J1650; J1940; J2060; J2250; J2270; J2704; J2765; J3010; J3370; J7030; J7040; J7050; J7120; P9059; U0003